=== PATIENT | female | born 1945 | race Caucasian/White ===

== ENCOUNTER 2019-09-10 12:20 | Inpatient (IN) | payer MEDICARE, OTHER ==
[2019-09-10] VITALS (11 sets, daily range): BP systolic 99–175; BP diastolic 55–85
[~2019-09-10] VITALS: Ht 157.5 cm; Wt 58.7 kg
--- NOTE | 2019-09-10 12:32 | PHYS DOC ---
General Adult HPI: HPI: 74F with unclear PMH (no literature provided from transferring facility) for the evaluation of breakthrough seizure this morning, found to have left parietal vertex parenchymal hemorrhage with mild surrounding edema on CT head. Unclear duration of seizure activity. Patient has tracheostomy, bagged en route and plac ed on vent upon arrival. Hx otherwise limited at this time given patient condition. Patient's baseline mentation is unclear. Received fosphenytoin load prior to transfer. PMH, PSH, SHx unable to be obtained. Additional ancillary Hx obtained from outside facility: Reportedly been at [facility] since September 04 following admission to [facility] for respiratory failure, PNA. Developed increasing agitation over last 1-2 days requiring precedex/fentanyl. Review of Systems: Review of Systems: Unable to be obtained 2/2 patient condition. Heart Score: Risk Factors: Risk Factors: DM, Current or recent (<one month) smoker, HTN, HLP, family history of CAD, obesity. Risk Scores: Score 0 - 3: 2.5% MACE over next 6 weeks - Discharge Home Score 4 - 6: 20.3% MACE over next 6 weeks - Admit for Clinical Observation Score 7 - 10: 72.7% MACE over next 6 weeks - Early Invasive Strategies Physical Exam: PE: Gen: NAD. Head: NC/AT. Eyes: No scleral icterus. No conjunctival injection. PERRL, oval shaped right pupil. ENT: MMM. Neck: Trach in place. CV: RRR. Peripheral pulses intact. Resp: Diffusely rhonchorous BL. Abd: Soft. NT. ND. MSK: No peripheral cyanosis. No edema. Neuro: GCS 6T. Skin. Warm. Dry. Psych: Obtunded. EKG: EKG: [] Radiology/Procedures: Radiology/Procedures: [] Course & Med Decision Making: Course & Med Decision Making Pertinent Labs and Imaging studies reviewed. (See chart for details) In summary, 74F presenting as transfer from [facility] following first time seizure, found to have left parietal IPH. Received fospheny [employer]. Has MY triple lumen PI CC. SBP 140, hold cardene for now. Spoke with Dinora BALL of [facility] re: ICH and breakthrough seizure. Will attempt to upload images to PACS for review. Will admit. Reji Disclaimer: Reji Disclaimer: This electronic medical record was generated, in whole or in part, using a voice recognition dictation system. Departure Departure Impression: Primary Impression: Intraparenchymal hemorrhage of brain Additional Impression: Seizure Disposition: ADMITTED INPATIENT Admitting Physician: Madi. Radha Lazcanoicifation of Admission Dx: Justifications for Admission: Justification of Admission Dx: Yes Respiratory Failure: Mechanical Ventilation Comments: Intraparenchymal hemorrhage, seizure Critical Care Time Critical care time was [30] minutes exclusive of procedures. ALBERTO TAVAREZ DO Sep 10, 2019 12:32
[2019-09-10] MEDS ORDERED: levETIRAcetam 1,000 MG in IV DEXTROSE 5% 100ML 100 ML IV ONE (12:45)
[2019-09-10] MEDS ORDERED: ONDANSETRON PF 4 MG/2 ML VIAL. IV PRN (13:00)
[2019-09-10 13:04] LABS: BASE EXCESS ABG 1 mmol/L (-3-3); HCO3 ABG 25 mmol/L (21-28); PCO2 ABG 38 mmHg (35-46); PO2 ABG 108 mmHg (65-108); SAT O2 ABG 97 % (92-99)
[2019-09-10 13:05] LABS: BASO # 0.1 x10^3/uL (0.0-0.2); BASO % 0 % (0-3); EOS # 0.2 x10^3/uL (0.0-0.7); EOS % 1 % (0-3); HEMATOCRIT 23.2 % (36.0-47.0); HEMOGLOBIN 7.8 g/dL (12.0-15.5); LYMPH # 0.7 x10^3/uL (1.0-4.8); LYMPH % 3 % (24-48); MEAN CORPUSCULAR HEMOGLOBIN 29 pg (25-35); MEAN CORPUSCULAR HGB CONC 33 g/dL (31-37); MEAN CORPUSCULAR VOLUME 86 fL (79-100); MONO # 2.2 x10^3/uL (0.0-1.1); MONO % 11 % (0-9); NEUT # 16.9 x10^3/uL (1.8-7.7); NEUT % 84 % (31-73); PLATELET COUNT 478 x10^3/uL (140-400); RED BLOOD COUNT 2.72 x10^6/uL (3.50-5.40); RED CELL DISTRIBUTION WIDTH 17.6 % (11.5-14.5)
[2019-09-10 13:09] LABS: FIO2 ABG 35% VENT
[2019-09-10 13:15] LABS: PROTHROMBIN TIME PATIENT 13.9 SEC (11.7-14.0)
[2019-09-10 13:17] LABS: ALBUMIN 2.7 g/dL (3.4-5.0); ALBUMIN/GLOBULIN RATIO 0.7 (1.0-1.7); CALCIUM 9.7 mg/dL (8.5-10.1); CREATININE 1.9 mg/dL (0.6-1.0); GFR 25.9; MAGNESIUM 1.6 mg/dL (1.8-2.4); TOTAL BILIRUBIN 0.3 mg/dL (0.2-1.0); TOTAL PROTEIN 6.7 g/dL (6.4-8.2)
[2019-09-10 13:21] LABS: POTASSIUM 2.7 mmol/L (3.5-5.1)
[2019-09-10 13:47] LABS: % BANDS 6 % (0-9); % EOS 1 % (0-5); % LYMPHS 1 % (24-48); % MONOS 7 % (0-10); % SEGS 85 % (35-66)
[2019-09-10 13:48] LABS: ANISOCYTOSIS SLIGHT; HYPERSEGS PRESENT; PLT ESTIMATE INCREASED (ADEQUATE)
--- NOTE | 2019-09-10 14:00 | NUR ---
Patient of Dr Peña admitted at 1330 from [facility] with intracranial hemorrhage. Patient with trach on vent unresponsive, with cough and a gag, pupils equal and reactive.Consults called. Dr Keita ordered PRN Cardene to keep BP < 150. Dr Rodriguez ordered repeat head CT for am, and bid keppra. Wound care consulted. Potassium and mag replaced. Patients vs wnl. will monitor.
[2019-09-10] MEDS ORDERED: CALC500T54 PO (14:03)
[2019-09-10] MEDS ORDERED: ALBU2.5V14 NEB (14:03)
[2019-09-10] MEDS ORDERED: FLUT9.9S NS (14:03)
[2019-09-10] MEDS ORDERED: IPRA3AMP29 NEB (14:03)
[2019-09-10] MEDS ORDERED: METO50TA6 PO (14:10)
[2019-09-10] MEDS ORDERED: SIME80TA14 PO (14:10)
[2019-09-10] MEDS ORDERED: CYAN-25 PO (14:10)
[2019-09-10] MEDS ORDERED: VENL37.510 PO (14:10)
[2019-09-10] MEDS ORDERED: PRED20TA PO (14:10)
[2019-09-10] MEDS ORDERED: SUCR1TAB PO (14:10)
[2019-09-10] MEDS ORDERED: MAGNESIUM SULFATE 2GM 50 ML IV ONE (15:00)
[2019-09-10] MEDS: POTASSIUM CHLORIDE 20MEQ 100 ML IV SCH ×4 (15:35→18:33)
[2019-09-10] MEDS ORDERED: NON FORMULARY ITEM (Albuterol Sulfate (Albuterol Sulfate Conc Neb Soln) 1 VIAL) NEB PRN (17:00)
[2019-09-10] MEDS ORDERED: IPRATRPIUM/ALBUTEROL 0.5/2.5MG 3 ML NEBU. NEB SCH (17:00)
[2019-09-10] MEDS: SUCRALFATE 1 GM TABLET. PO SCH ×2 (17:09→20:41)
[2019-09-10] MEDS ORDERED: ALBUTEROL SULFATE 2.5 MG/3 ML NEBU. NEB PRN (17:15)
[2019-09-10] MEDS: IV NORMAL SALINE 1000ML BAG 1,000 ML IV SCH (17:15)
[2019-09-10] MEDS ORDERED: C.DIFF MED SCREEN BY RX. MC ONE (18:00)
--- NOTE | 2019-09-10 18:00 | CONS ---
DATE OF CONSULTATION: PULMONARY CONSULTATION ATTENDING PHYSICIAN: Radha Peña MD. REASON FOR CONSULTATION: Respiratory failure, seizure, encephalopathy. HISTORY OF PRESENT ILLNESS: The patient is a 74-year-old female who was admitted to [facility] on 08/10 with shortness of breath and left-sided chest pain. She was found to have left-sided pneumonia. There was no evidence of pulmonary embolism. The patient's respiratory status deteriorated and subsequently required mechanical ventilation. She failed to wean; as a result, she underwent tracheostomy. Her hospital course was complicated by development of methicillin-sensitive Staphylococcus aureus pneumonia and loculated left pleural effusion, likely parapneumonic and early empyema that was bloody and responded to TPA. She had ALEX and also metabolic acidosis and encephalopathy. The patient has history of chronic bronchiectasis. She has secondhand tobacco exposure and likely COPD, but no significant personal tobacco history. She also was treated for rhabdomyolysis and UTI. She was at [facility] where she was transferred; however, today she developed a seizure. She was brought in to Emergency Room where a CT of the head was performed and was consistent with left parietal acute parenchymal hemorrhage with surrounding edema. She is currently on a ventilator. She is not responding, however, she does trigger the ventilator. Her chest x-ray has not been done yet. The who was at the bedside, gave much of the history as well as review of the chart. Her ABGs showed a pH of 7.43, pCO2 of 30 and a pO2 of 108 on 35% FiO2. I have been asked to see her for further evaluation. Neurosurgery has been consulted. PAST MEDICAL HISTORY: Significant for bronchiectasis with recurrent pulmonary infections in the past. History of COPD from secondhand tobacco exposure, history of Graves' disease with hyperthyroidism, history of diverticulitis without perforation, history of gastroesophageal reflux disease, history of methicillin-sensitive Staphylococcus aureus pneumonia and parapneumonic effusion/early empyema, status post TPA done recently. History of uncomplicated bronchial asthma. PAST SURGICAL HISTORY: Achilles tendon repair, bronchoscopy, , tracheostomy, PEG tube, cataract extractions, total knee arthroplasty on the right side. ALLERGIES: None. CURRENT MEDICATIONS: All reviewed as listed in the MRAD. REVIEW OF SYSTEMS: Unable to obtain from the patient as she is on the ventilator. SOCIAL HISTORY: Nonsmoker. FAMILY HISTORY: Not able to obtain. PHYSICAL EXAMINATION: GENERAL: She is intubated. She is not sedated. VITAL SIGNS: Blood pressure 140/81, afebrile, pulse ox 100%. HEENT: Pupils do react symmetrically. NECK: Supple. Trach in place. LUNGS: With diminished breath sounds. CARDIOVASCULAR: With a regular rate. ABDOMEN: Soft. EXTREMITIES: With ecchymosis and trace pitting edema. LABORATORY DATA: Reviewed. ABGs as discussed in my history of present illness. BUN is 115, creatinine 1.9, potassium 2.7, albumin 2.7. INR 1.1. White cell count 20.0, hemoglobin 7.8, and platelets are 478. IMPRESSION: 1. The patient with acute hypoxic respiratory failure secondary to pneumonia and parapneumonic effusion/early empyema, requiring mechanical ventilation and subsequent failure to wean and eventually requiring tracheostomy. Currently, her oxygenation is stable on 35% FiO2. 2. New onset seizure related to acute parenchymal hemorrhage within the left parietal vertex with surrounding edema. 3. Encephalopathy secondary to parenchymal hemorrhage. 4. History of bronchiectasis. 5. Chronic obstructive pulmonary disease from secondhand tobacco exposure. 6. Recent methicillin-sensitive Staphylococcus aureus pneumonia. 7. Prior history of rib fracture from coughing. 8. Moderate protein-calorie malnutrition. 9. Leukocytosis. 10. Anemia. 11. Hypokalemia. 12. Marked azotemia. RECOMMENDATIONS: 1. The patient's pulmonary status is stable and I will continue with present assist control mode and 35% FiO2. 2. Await Neurosurgery recommendations. It does not seem like that she is a surgical candidate. 3. We will consider IV hydration and follow BUN and creatinine. 4. Consider Renal consult. 5. We will obtain chest x-ray. 6. Withhold any anticoagulation for DVT prophylaxis due to intraparenchymal bleed in the head. 7. Anti-seizure medication per Neurology and follow their recommendation. 8. Stress ulcer prophylaxis. 9. Discussed at length with the patient's and RN and RT. The chart reviewed, labs reviewed. Critical care time 40 minutes. LEO WILLIAM MD DR: MATTI/south JOB#: [id number] / [id number]
[2019-09-10] MEDS ORDERED: IV NORMAL SALINE 500ML BAG 500 ML IV PRN (18:45)
[2019-09-10] MEDS ORDERED: ATROPINE 0.5 MG/5 ML DISP.SYRINGE. IV PRN (18:45)
[2019-09-10] MEDS: METOPROLOL TART IMMED RELEASE 50 MG TABLET. PO SCH (20:41)
[2019-09-10] MEDS: SIMETHICONE 80 MG TAB.CHEW PO SCH (20:41)
[2019-09-10] MEDS: CALCIUM CARBONATE 500 MG TAB.CHEW PO SCH (20:41)
[2019-09-10] MEDS: IPRATRPIUM/ALBUTEROL 0.5/2.5MG 3 ML NEBU. NEB SCH (20:56)
[2019-09-10] MEDS: FAMOTIDINE 20 MG/2 ML VIAL IVP SCH (21:12)
[2019-09-11] VITALS (25 sets, daily range): BP systolic 113–177; BP diastolic 59–103
[2019-09-11] MEDS: IV NORMAL SALINE 1000ML BAG 1,000 ML IV SCH ×2 (02:42→13:33)
[2019-09-11] MEDS: DEXMEDETOMIDINE 400 MCG in IV NORMAL SALINE 100ML 96 ML IV PRN ×3 (05:32→20:45)
[2019-09-11 05:53] LABS: HEMATOCRIT 23.7 % (36.0-47.0); HEMOGLOBIN 7.8 g/dL (12.0-15.5); RED BLOOD COUNT 2.75 x10^6/uL (3.50-5.40); RED CELL DISTRIBUTION WIDTH 17.3 % (11.5-14.5); WHITE BLOOD COUNT 21.1 x10^3/uL (4.0-11.0)
--- NOTE | 2019-09-11 05:58 | NUR ---
At 0445 patient began coughing up large amounts of clear sputum. Patient was suctioned a couple times, but patient continued to cough, putting her HR in the 130s. This RN waited to see if patient would begin to relax on own as this is what she had done previously when having coughing episodes. Patient however is now more alert than has been during shift and could not stop coughing and spitting up sputum. Patient still does not follow commands,cannot move extremities, but eyes now open spontaneously. HR stayed steady at 130, and BP went up to [id number]. Patient started low dose precedex drip at 0545
[2019-09-11 06:11] LABS: CALCIUM 10.3 mg/dL (8.5-10.1); CREATININE 1.6 mg/dL (0.6-1.0); GFR 31.6; MAGNESIUM 2.2 mg/dL (1.8-2.4); PHOSPHORUS 6.5 mg/dL (2.6-4.7); POTASSIUM 3.6 mmol/L (3.5-5.1)
--- NOTE | 2019-09-11 08:10 | RAD ---
PORTABLE CHEST 1V History: Pneumonia Comparison: None. Findings: Single view of the chest is submitted. There is tracheostomy. There is right upper extremity PICC with the tip near the caval atrial junction. There is no dependent pleural fluid or pneumothorax. There is some scattered interstitial opacity bilaterally greater on the right, also more confluent linear opacity at the left lung base and right upper lobe. Heart size is within normal limits. There is atherosclerotic calcification near aortic arch. Impression: 1. There is some interstitial opacity greater on the right of uncertain chronicity, could be due to interstitial infiltrate and/or edema, also some linear opacity bilaterally more likely atelectasis. Electronically signed by: Clint Joseph MD (09/11/2019 8:08 AM) [id number]
[2019-09-11] MEDS: SUCRALFATE 1 GM TABLET. PO SCH ×4 (08:19→20:52)
[2019-09-11] MEDS: levETIRAcetam 500 MG in IV DEXTROSE 5% 100ML 100 ML IV SCH ×2 (08:34→20:54)
[2019-09-11 08:51] LABS: BASE EXCESS ABG 1 mmol/L (-3-3); HCO3 ABG 26 mmol/L (21-28); PCO2 ABG 38 mmHg (35-46); PO2 ABG 114 mmHg (65-108); SAT O2 ABG 98 % (92-99)
[2019-09-11] MEDS: IPRATRPIUM/ALBUTEROL 0.5/2.5MG 3 ML NEBU. NEB SCH ×4 (08:54→20:00)
[2019-09-11 08:59] LABS: FIO2 ABG 35
[2019-09-11] MEDS: FLUTICASONE 50MCG/NASAL SPRAY 16GM BOTTLE. NS SCH (09:00)
--- NOTE | 2019-09-11 09:56 | PDOC ---
PULMONARY PROGRESS NOTES Subjective responds to painful stimula off vent , on TS Vitals Vital Signs Date Time Temp Pulse Resp B/P (MAP) Pulse Ox O2 Delivery O2 Flow Rate FiO2 09/11/19 09:10 100 Tracheal Collar 8.0 09/11/19 09:00 104 12 141/79 (99) 09/11/19 08:00 97.6 97.6 General: Lethargic Lungs: Other (decrease bs) Cardiovascular: S1 Abdomen: Soft Extremities: Other (1+edema) Skin: Warm Labs Laboratory Tests Test 09/10/19 12:35 09/10/19 13:00 09/10/19 23:43 09/11/19 05:45 White Blood Count 20.0 x10^3/uL (4.0-11.0) 21.1 x10^3/uL (4.0-11.0) Red Blood Count 2.72 x10^6/uL (3.50-5.40) 2.75 x10^6/uL (3.50-5.40) Hemoglobin 7.8 g/dL (12.0-15.5) 7.8 g/dL (12.0-15.5) Hematocrit 23.2 % (36.0-47.0) 23.7 % (36.0-47.0) Mean Corpuscular Volume 86 fL (79-100) 86 fL (79-100) Mean Corpuscular Hemoglobin 29 pg (25-35) 28 pg (25-35) Mean Corpuscular Hemoglobin Concent 33 g/dL (31-37) 33 g/dL (31-37) Red Cell Distribution Width 17.6 % (11.5-14.5) 17.3 % (11.5-14.5) Platelet Count 478 x10^3/uL (140-400) 434 x10^3/uL (140-400) Neutrophils (%) (Auto) 84 % (31-73) Lymphocytes (%) (Auto) 3 % (24-48) Monocytes (%) (Auto) 11 % (0-9) Eosinophils (%) (Auto) 1 % (0-3) Basophils (%) (Auto) 0 % (0-3) Neutrophils # (Auto) 16.9 x10^3/uL (1.8-7.7) Lymphocytes # (Auto) 0.7 x10^3/uL (1.0-4.8) Monocytes # (Auto) 2.2 x10^3/uL (0.0-1.1) Eosinophils # (Auto) 0.2 x10^3/uL (0.0-0.7) Basophils # (Auto) 0.1 x10^3/uL (0.0-0.2) Segmented Neutrophils % 85 % (35-66) Band Neutrophils % 6 % (0-9) Lymphocytes % 1 % (24-48) Monocytes % 7 % (0-10) Eosinophils % 1 % (0-5) Hypersegmented Neutrophils Present Platelet Estimate Increased (ADEQUATE) Anisocytosis Slight Prothrombin Time 13.9 SEC (11.7-14.0) Prothromb Time International Ratio 1.1 (0.8-1.1) Activated Partial Thromboplast Time 28 SEC (24-38) Sodium Level 141 mmol/L (136-145) 144 mmol/L (136-145) Potassium Level 2.7 mmol/L (3.5-5.1) 3.6 mmol/L (3.5-5.1) Chloride Level 97 mmol/L (98-107) 101 mmol/L (98-107) Carbon Dioxide Level 28 mmol/L (21-32) 26 mmol/L (21-32) Anion Gap 16 (6-14) 17 (6-14) Blood Urea Nitrogen 115 mg/dL (7-20) 98 mg/dL (7-20) Creatinine 1.9 mg/dL (0.6-1.0) 1.6 mg/dL (0.6-1.0) Estimated GFR (Cockcroft-Gault) 25.9 31.6 BUN/Creatinine Ratio 61 (6-20) Glucose Level 167 mg/dL (70-99) 125 mg/dL (70-99) Calcium Level 9.7 mg/dL (8.5-10.1) 10.3 mg/dL (8.5-10.1) Magnesium Level 1.6 mg/dL (1.8-2.4) 2.2 mg/dL (1.8-2.4) Total Bilirubin 0.3 mg/dL (0.2-1.0) Aspartate Amino Transf (AST/SGOT) 27 U/L (15-37) Alanine Aminotransferase (ALT/SGPT) 37 U/L (14-59) Alkaline Phosphatase 94 U/L (46-116) Troponin I Quantitative < 0.017 ng/mL (0.000-0.055) Total Protein 6.7 g/dL (6.4-8.2) Albumin 2.7 g/dL (3.4-5.0) Albumin/Globulin Ratio 0.7 (1.0-1.7) O2 Saturation 97 % (92-99) Arterial Blood pH 7.43 (7.35-7.45) Arterial Blood pCO2 at Patient Temp 38 mmHg (35-46) Arterial Blood pO2 at Patient Temp 108 mmHg (65-108) Arterial Blood HCO3 25 mmol/L (21-28) Arterial Blood Base Excess 1 mmol/L (-3-3) FiO2 35% vent Glucose (Fingerstick) 111 mg/dL (70-99) Phosphorus Level 6.5 mg/dL (2.6-4.7) Test 09/11/19 08:40 O2 Saturation 98 % (92-99) Arterial Blood pH 7.45 (7.35-7.45) Arterial Blood pCO2 at Patient Temp 38 mmHg (35-46) Arterial Blood pO2 at Patient Temp 114 mmHg (65-108) Arterial Blood HCO3 26 mmol/L (21-28) Arterial Blood Base Excess 1 mmol/L (-3-3) FiO2 35 Laboratory Tests Test 09/10/19 12:35 09/10/19 13:00 09/10/19 23:43 09/11/19 05:45 White Blood Count 20.0 x10^3/uL (4.0-11.0) 21.1 x10^3/uL (4.0-11.0) Red Blood Count 2.72 x10^6/uL (3.50-5.40) 2.75 x10^6/uL (3.50-5.40) Hemoglobin 7.8 g/dL (12.0-15.5) 7.8 g/dL (12.0-15.5) Hematocrit 23.2 % (36.0-47.0) 23.7 % (36.0-47.0) Mean Corpuscular Volume 86 fL (79-100) 86 fL (79-100) Mean Corpuscular Hemoglobin 29 pg (25-35) 28 pg (25-35) Mean Corpuscular Hemoglobin Concent 33 g/dL (31-37) 33 g/dL (31-37) Red Cell Distribution Width 17.6 % (11.5-14.5) 17.3 % (11.5-14.5) Platelet Count 478 x10^3/uL (140-400) 434 x10^3/uL (140-400) Neutrophils (%) (Auto) 84 % (31-73) Lymphocytes (%) (Auto) 3 % (24-48) Monocytes (%) (Auto) 11 % (0-9) Eosinophils (%) (Auto) 1 % (0-3) Basophils (%) (Auto) 0 % (0-3) Neutrophils # (Auto) 16.9 x10^3/uL (1.8-7.7) Lymphocytes # (Auto) 0.7 x10^3/uL (1.0-4.8) Monocytes # (Auto) 2.2 x10^3/uL (0.0-1.1) Eosinophils # (Auto) 0.2 x10^3/uL (0.0-0.7) Basophils # (Auto) 0.1 x10^3/uL (0.0-0.2) Segmented Neutrophils % 85 % (35-66) Band Neutrophils % 6 % (0-9) Lymphocytes % 1 % (24-48) Monocytes % 7 % (0-10) Eosinophils % 1 % (0-5) Hypersegmented Neutrophils Present Platelet Estimate Increased (ADEQUATE) Anisocytosis Slight Prothrombin Time 13.9 SEC (11.7-14.0) Prothromb Time International Ratio 1.1 (0.8-1.1) Activated Partial Thromboplast Time 28 SEC (24-38) Sodium Level 141 mmol/L (136-145) 144 mmol/L (136-145) Potassium Level 2.7 mmol/L (3.5-5.1) 3.6 mmol/L (3.5-5.1) Chloride Level 97 mmol/L (98-107) 101 mmol/L (98-107) Carbon Dioxide Level 28 mmol/L (21-32) 26 mmol/L (21-32) Anion Gap 16 (6-14) 17 (6-14) Blood Urea Nitrogen 115 mg/dL (7-20) 98 mg/dL (7-20) Creatinine 1.9 mg/dL (0.6-1.0) 1.6 mg/dL (0.6-1.0) Estimated GFR (Cockcroft-Gault) 25.9 31.6 BUN/Creatinine Ratio 61 (6-20) Glucose Level 167 mg/dL (70-99) 125 mg/dL (70-99) Calcium Level 9.7 mg/dL (8.5-10.1) 10.3 mg/dL (8.5-10.1) Magnesium Level 1.6 mg/dL (1.8-2.4) 2.2 mg/dL (1.8-2.4) Total Bilirubin 0.3 mg/dL (0.2-1.0) Aspartate Amino Transf (AST/SGOT) 27 U/L (15-37) Alanine Aminotransferase (ALT/SGPT) 37 U/L (14-59) Alkaline Phosphatase 94 U/L (46-116) Troponin I Quantitative < 0.017 ng/mL (0.000-0.055) Total Protein 6.7 g/dL (6.4-8.2) Albumin 2.7 g/dL (3.4-5.0) Albumin/Globulin Ratio 0.7 (1.0-1.7) O2 Saturation 97 % (92-99) Arterial Blood pH 7.43 (7.35-7.45) Arterial Blood pCO2 at Patient Temp 38 mmHg (35-46) Arterial Blood pO2 at Patient Temp 108 mmHg (65-108) Arterial Blood HCO3 25 mmol/L (21-28) Arterial Blood Base Excess 1 mmol/L (-3-3) FiO2 35% vent Glucose (Fingerstick) 111 mg/dL (70-99) Phosphorus Level 6.5 mg/dL (2.6-4.7) Test 09/11/19 08:40 O2 Saturation 98 % (92-99) Arterial Blood pH 7.45 (7.35-7.45) Arterial Blood pCO2 at Patient Temp 38 mmHg (35-46) Arterial Blood pO2 at Patient Temp 114 mmHg (65-108) Arterial Blood HCO3 26 mmol/L (21-28) Arterial Blood Base Excess 1 mmol/L (-3-3) FiO2 35 Medications Active Scripts Medications Dose Route/Sig Max Daily Dose Days Date Category Vitamin B-12 (Cyanocobalamin (Vitamin B-12)) 1,000 Mcg Tablet 1 Tab PO DAILY 30 09/10/19 Reported Venlafaxine Hcl Er (Venlafaxine Hcl) 37.5 Mg Tab.er.24 1 Tab PO DAILY 30 09/10/19 Reported Sucralfate 1 Gm Tablet 1 Tab PO QID 09/10/19 Reported Simethicone 80 Mg Tab.chew 1 Tab PO TID 6 09/10/19 Reported Prednisone 20 Mg Tablet 12.5 Mg PO DAILY 09/10/19 Reported Metoprolol Tartrate 50 Mg Tablet 1 Tab PO BID 09/10/19 Reported Albuterol Sulfate Conc Neb Soln (Albuterol Sulfate) 2.5 Mg/0.5 Ml Vial.neb 1 Vial NEB PRN Q4HRS PRN 09/10/19 Reported Duoneb 0.5-3(2.5) Mg/3 Ml (Albuterol/Ipratropium) 3 Ml Ampul.neb 3 Ml NEB QID 09/10/19 Reported Flonase Allergy Relief (Fluticasone Propionate) 9.9 Ml [place].susp 2 Sprays NS DAILY 09/10/19 Reported Calcium (Calcium Carbonate) 500 Mg Tab.chew 1 Tab PO BID 30 09/10/19 Reported Comments cxr 09/09 reviewed Impression . 1. The patient with acute hypoxic respiratory failure secondary to pneumonia and parapneumonic effusion/early empyema, requiring mechanical ventilation and subsequent failure to wean and eventually requiring tracheostomy. Currently, her oxygenation is stable on 35% FiO2. 2. New onset seizure related to acute parenchymal hemorrhage within the left parietal vertex with surrounding edema. 3. Encephalopathy secondary to parenchymal hemorrhage. 4. History of bronchiectasis. 5. Chronic obstructive pulmonary disease from secondhand tobacco exposure. 6. Recent methicillin-sensitive Staphylococcus aureus pneumonia. 7. Prior history of rib fracture from coughing. 8. Moderate protein-calorie malnutrition. 9. Leukocytosis. 10. Anemia. 11. Hypokalemia. 12. Marked azotemia. Plan . RECOMMENDATIONS: 1. The patient's pulmonary status is stable and I will continue with present TS 2. Neurosurgery recommendations. It does not seem like that she is a surgical candidate. 3. We will consider IV hydration and follow BUN and creatinine. 4. ? Renal consult. 5. chest x-ray.reviewed 6. Withhold any anticoagulation for DVT prophylaxis due to intraparenchymal bleed in the head. 7. Anti-seizure medication per Neurology and follow their recommendation. 8. Stress ulcer prophylaxis. 9. Discussed at length with the patient's and RN and RT. LEO WILLIAM MD Sep 11, 2019 09:56
[2019-09-11] MEDS: CALCIUM CARBONATE 500 MG TAB.CHEW PO SCH ×2 (11:09→20:53)
[2019-09-11] MEDS: predniSONE 5 MG TABLET PO SCH (11:09)
[2019-09-11] MEDS: SIMETHICONE 80 MG TAB.CHEW PO SCH ×3 (11:10→20:52)
[2019-09-11] MEDS: CYANOCOBALAMIN (VITAMIN B-12) 1,000 MCG TABLET. PO SCH (11:10)
[2019-09-11] MEDS: VENLAFAXINE XR 37.5 MG CAP.ER.24H. PO SCH (11:10)
[2019-09-11] MEDS: METOPROLOL TART IMMED RELEASE 50 MG TABLET. PO SCH ×2 (11:12→20:53)
--- NOTE | 2019-09-11 11:43 | RAD ---
EXAM: CT Head without IV contrast INDICATION: Reason: f/u ICH, compare to [facility] CD / Spl. Instructions: / History: TECHNIQUE: Multi-detector row CT images were obtained of the head without the use of IV contrast. All CT scans performed at this facility utilize dose optimization techniques as appropriate to the exam, including the following: Automated exposure control and adjustment of the mA and/or KV according to patient size (this includes techniques or standardized protocols for targeted exams where dose is indication/reason for exam). COMPARISON: [facility] noncontrast head CT of 09/10/2027 times stamped at approximately 2240 hours FINDINGS: There is some motion artifact that degrades detail. BRAIN PARENCHYMA: The asymmetric hyperdensity in the posterior left frontal lobe is obscured by motion artifact but best appreciated on axial image 27 of 68 on series 2 and measures approximately 1.2 cm in maximum diameter. This is essentially unchanged from the previous CT of slightly under 12 hours ago. There is mild generalized frontal predominant volume loss. There is also suggestion of subcortical white matter edema in the bilateral occipital lobes. VENTRICLES & EXTRA-AXIAL SPACES: Ventricles are prominent in proportion to the degree of parenchymal volume loss present. Basilar cisterns are patent. No pathologic extra-axial fluid collection or mass. ORBITS: Orbital contents are unremarkable. SINUSES: Visualized paranasal sinuses and mastoid air cells are clear. OSSEOUS & SOFT TISSUES: Calvarium and skull base are intact. IMPRESSION: Motion degraded examination showing subtle hyperdensity in the posterior left frontal lobe near the vertex. This is suspicious for acute intraparenchymal hemorrhage, not significantly changed from the prior examination. Consider an MRI of the brain when clinically feasible in further characterization. Subtle subcortical white matter edema in the occipital lobes is also suspected, potentially reflection of reversible encephalopathy. MRI could also help confirm and further characterize if indicated. Discussed with patient's consulting neurologist in person at 11:37 AM on 09/11/2019. Electronically signed by: Michelle Alex MD (09/11/2019 11:41 AM) [id number]
--- NOTE | 2019-09-11 11:54 | HP ---
ADMIT DATE: HISTORY OF PRESENT ILLNESS: The patient is a 74-year-old female patient who was transferred from [facility] as she developed prolonged episode of partial seizures involving her left upper extremity for which she was seen by the ER physician at that time and was given loading dose of phenytoin and a total of about 7 mg of Ativan. She apparently had had a CT scan of the head, which found intraparenchymal hemorrhage of the brain and therefore, the patient was transferred to [facility] to consult a neurologist and the neurosurgeon. The patient was sedated as she has received about 7 mg of Ativan and a loading dose of phenytoin and we did switch her to Keppra 500 mg IV twice a day. The patient was originally transferred from another facility and developed acute hypoxic respiratory failure secondary to community-acquired pneumonia. She did have also pleuritic pain in the left side on admission and apparently for about 2-3 days prior to admission, was coughing really hard. She was treated with Precedex drip for sedation and she arrived to [facility] and at 1 mcg per kilogram per minute Precedex drip running. At one point in time, she did require also a chest tube for pleural effusion, given tPA and dornase with the physician notes stating that there was significant response. She was also treated for acute kidney injury and Roselia urinary tract infection. Her liver enzymes were elevated to be secondary to medication and sepsis. She was also treated with steroids and required tracheostomy and PEG tube placement. PAST MEDICAL HISTORY: Significant for: 1. Chronic obstructive pulmonary disease with bronchiectasis. 2. Methicillin-resistant Staphylococcus aureus localization. 3. Chronic sinusitis. 4. Acquired hypothyroidism. 5. Osteoporosis and osteoarthritis. 6. Degenerative disk disease. 7. Gastroesophageal reflux disease. 8. Hypercholesterolemia. 9. Diverticulitis of the large intestine. 10. Previous left Achilles rupture. 11. Although she is hypothyroid, at one point in time, she did have Graves' disease with diffuse goiter and thyrotoxicosis. PAST SURGICAL HISTORY: Significant for previous bronchoscopies, , eye surgery, right knee replacement, hysterectomy, right lumbar radiofrequency ablation and 3 previous sinus surgeries. She has also a gastrostomy tube placement as well as tracheostomy tube placement. SOCIAL HISTORY: She is and lives with . She does not smoke, drink alcohol or use any recreational drugs. FAMILY HISTORY: Her father had esophageal cancer. Brother had lung cancer and heart attack. Sister had asthma, kidney cancer and diabetes as well as hypothyroidism and migraine. Mother has Parkinson's disease. ALLERGIES: She has no known drug allergies. MEDICATIONS: She was transferred from [facility] to continue on following medications: Ipratropium bromide, albuterol inhaler by nebulizer 4 times a day, albuterol sulfate 2.5 mg in 0.5 mL by nebulizer every 4 hours, metoprolol tartrate 50 mg per feeding tube twice a day, venlafaxine 37.5 mg daily, calcium carbonate 500 mg twice a day, Flonase 2 sprays to each nostril once a day, simethicone 80 mg 3 times a day, sucralfate 1 gram 4 times a day, prednisone 20 mg once a day, cyanocobalamin or vitamin B12 1000 mcg once a day. She should also be on Keppra 500 mg IV every 12 hours as well as Precedex for sedation. PHYSICAL EXAMINATION: GENERAL: On arrival, she looked well and was clearly in no apparent respiratory distress, pale, but no jaundice, cyanosis or thyromegaly. No jugular venous distention. No lower limb edema. VITAL SIGNS: Her heart rate was 107, blood pressure was 175/85. Her temperature was 97.9, respiratory rate was 12 and oxygen saturation was 100% on FiO2 of 40%. HEAD, EYES, EARS, NOSE AND THROAT: Showed normocephalic, atraumatic. NECK: Supple. HEART: Showed normal first and second heart sounds. No gallop, rub or murmur. CHEST: Showed central trachea, equal bilateral expansion, air entry, vesicular sounds with crepitation or rhonchi. ABDOMEN: Distended, soft with gastrostomy tube in place. There is no guarding or rigidity. No organomegaly. All hernial orifices intact. Bowel sounds normal. NEUROLOGIC: She was sedated that she received about 7 mg of Ativan. LABORATORY DATA: On admission showed a white cell count of 20,000; hemoglobin 7.8; hematocrit 23; MCV 86 and platelet count 476,000 with normal manual differential. Serum sodium was 141, potassium 2.7, chloride 97, bicarbonate 28, anion gap of 16, BUN 115. Her creatinine is 1.9, estimated GFR was 26 mL per minute. Her glucose 167, calcium was 9.7, magnesium was 1.6. Total bilirubin, AST, ALT, alkaline phosphatase were normal. Total protein 6.7, albumin 2.7. Her blood gases showed a pH of 7.43, pCO2 of 38, pO2 of 108, bicarbonate 25 and oxygen saturation was 97% on FiO2 of 35%. Her prothrombin time, INR and aPTT were normal. ASSESSMENT AND PLAN: In summary, this is a 74-year-old female patient who was basically transferred from [facility] with new onset of seizure. CT scan showed that she has intraparenchymal hemorrhage. The hemorrhage was in the left parietal area with surrounding edema. She was transferred to consult the neurologist and neurosurgeon as well as the industrial designer. We will continue obviously with her tube feeding. She has also hypokalemia and hypomagnesemia, will be replenished. We will continue with all her medications including Keppra 500 mg twice a day. We did consult Dr. Keita as well as Dr. Rodriguez. MANUELITO CEDILLO MD DR: DARRICK/south JOB#: [id number] / [id number]
--- NOTE | 2019-09-11 13:24 | PN ---
DATE: 09/11/2019 SUBJECTIVE: The patient is resting slightly propped up in bed, in no apparent distress. She is awake, alert, opens eyes, tracks and her stated that she is responding a lot more today than yesterday. No further seizures documented overnight. She is now off the ventilator and tracheal shield maintaining her oxygen saturation at 100% on FiO2 of 35%. PHYSICAL EXAMINATION: GENERAL: When I examined her, she was pale, but no jaundice, cyanosis, lymphadenopathy or thyromegaly. No jugular venous distention. No lower limb edema. VITAL SIGNS: Her heart rate was 93, blood pressure was 163/81, temperature was 97.7, respiratory rate was 12, and oxygen saturation 100%. HEAD, EYES, EARS, NOSE AND THROAT: Normocephalic, atraumatic. NECK: Supple with tracheostomy tube in place. HEART: Showed normal first and second heart sounds with no gallop or murmur. CHEST: Clear to auscultation. No crepitation or rhonchi. ABDOMEN: Distended, soft with gastrostomy tube in place. No guarding or rigidity. No organomegaly. All hernial orifice intact. Bowel sounds normal. NEUROLOGIC: She was sleepy, but arousable. She opens eyes, tracks. She moves all extremities spontaneously. Her intake over the last 24 hours was 1440, output was 2770. LABORATORY DATA: As of this morning showed a white cell count 21,000, hemoglobin 7.8, hematocrit 23.7, MCV 86 and platelet count 434,000. Her chemistry this morning showed a serum sodium 144, potassium 3.6, chloride 101, bicarbonate 26, anion gap of 17, BUN 98, creatinine 1.6, estimated GFR was 31 mL per minute. Her glucose 125, calcium was 10.3, phosphorus 6.5 and magnesium was 2.2. ASSESSMENT: 1. New-onset partial seizure involving her left upper extremity with CT scan showing left parietal intraparenchymal hemorrhage treated with a loading dose of phenytoin and she is now on Keppra 500 mg IV. No further episode of seizures reported. She apparently was seen by Dr. Rodriguez and has had a CT scan of the head that was not read yet. 2. Acute respiratory failure for which she was intubated, mechanically ventilated, and had had a tracheostomy tube in place. She is now off the ventilator, maintaining her oxygen saturation at 100% on tracheal shield. 3. Dysphagia, for which she has a gastrostomy tube in place. 4. Hypokalemia, resolved. Her potassium is 3.6 5. Hypomagnesemia, improved. Her magnesium is 2.2. 6. Acute kidney injury, gradually improving. Her BUN is down to 98 and creatinine is 1.6. PLAN: To continue with Keppra, continue with tube feeding. We will continue the Precedex for agitation or restlessness. I will repeat all her labs tomorrow and await the evaluation by the neurologist and might be able to transfer her back to [facility] tomorrow. MANUELITO CEDILLO MD DR: DARRICK/south JOB#: [id number] / [id number]
--- NOTE | 2019-09-11 13:31 | PDOC2 ---
NEUROLOGY CONSULT Date of Admission Date of Admission DATE: 09/11/19 TIME: 13:19 Reason for Consult Reason for Consult: Seizure, intracranial hemorrhage Referring Physician Referring Physician: Dr. Peña Source Source: Caregiver (), Chart review, Patient History of Present Illness History of Present Illness The patient is a 74-year-old right-handed female originally admitted to [facility] in [place] with pleurisy, she developed respiratory failure requiring intubation and later tracheostomy and PEG placement. She then was transferred to [facility]. Yesterday she developed partial seizures of the left upper extremity. They gave her phenytoin there. A CT of the head showed some petechial hemorrhage in the left frontal lobe. Patient was transferred here. She has now had a repeat head CT today, as reviewed below and no further seizures. We switched her from the phenytoin to levetiracetam. There is no prior history of stroke, seizure, or head injury. Patient has not been complaining of any headaches. There has been no recent head injury, but the patient was recently started on subcutaneous heparin. Past Medical History Cardiovascular: Hyperlipidemia Pulmonary: COPD (With bronchiectasis, non-smoker) GI: Diverticulosis, GERD Musculoskeletal: Osteoarthritis, Other (Degenerative disc disease, left Achilles rupture) ENT: Sincusitis Endocrine: Diabetes (Sugars have been elevated during this hospital stay), Hypothyroidism (Originally Graves' disease), Osteoporosis Past Surgical History Past Surgical History: , Total knee replacement (right), Hysterectomy, Other (eye, right lumbar radiofrequency ablation, 3 sinus surgeries, PEG, trache) Family History Family History: Cancer, Other (Parkinson's) Social History Social History , lives with , no tobacco or alcohol Current Medications Current Medications Current Medications Levetiracetam 1000 mg/Dextrose 110 ml @ 440 mls/hr 1X ONCE IV ; Start 09/10/19 at 12:45; Stop 09/10/19 at 12:59; Status DC Ondansetron HCl (Zofran) 4 mg PRN Q8HRS PRN IV NAUSEA/VOMITING; Start 09/10/19 at 13:00; Stop 09/11/19 at 12:59; Status DC Potassium Chloride/Water 100 ml @ 100 mls/hr Q1H IV Last administered on 09/10/19at 18:33; Start 09/10/19 at 15:00; Stop 09/10/19 at 18:59; Status DC Magnesium Sulfate 50 ml @ 25 mls/hr 1X ONCE IV Last administered on 09/10/19at 14:51; Start 09/10/19 at 15:00; Stop 09/10/19 at 16:59; Status DC Sodium Chloride 1,000 ml @ 100 mls/hr Q10H IV Last administered on 09/11/19at 02:42; Start 09/10/19 at 15:45 Levetiracetam 500 mg/Dextrose 105 ml @ 420 mls/hr Q12HR IV Last administered on 09/11/19at 08:34; Start 09/11/19 at 09:00 Cyanocobalamin (Vitamin B-12) 1,000 mcg DAILY PO Last administered on 09/11/19at 11:10; Start 09/11/19 at 09:00 Albuterol/ Ipratropium (Duoneb) 3 ml RTQID NEB ; Start 09/10/19 at 17:00; Stop 09/10/19 at 17:35; Status DC Metoprolol Tartrate (Lopressor) 50 mg BID PO Last administered on 09/11/19at 11: 12; Start 09/10/19 at 21:00 Prednisone (Prednisone) 12.5 mg DAILY PO Last administered on 09/11/19at 11:09; Start 09/11/19 at 09:00 Simethicone (Gas-X) 80 mg TID PO Last administered on 09/11/19at 11:10; Start 09/10/19 at 21:00 Sucralfate (Carafate) 1 gm QID PO Last administered on 09/11/19at 12:46; Start 09/10/19 at 17:00 Non-Formulary Medication (Albuterol Sulfate (Albuterol Sulfate Conc Neb Soln)) 1 vial PRN Q4HRS PRN NEB SHORTNESS OF BREATH; Start 09/10/19 at 17:00; Status UNV Calcium Carbonate/ Glycine (Tums) 500 mg BID PO Last administered on 09/11/19at 11:09; Start 09/10/19 at 21:00 Fluticasone Propionate (Flonase) 2 spray DAILY NS ; Start 09/11/19 at 09:00 Venlafaxine HCl (Effexor Xr) 37.5 mg DAILY PO Last administered on 09/11/19at 11:10; Start 09/11/19 at 09:00 Famotidine (Pepcid Vial) 20 mg QHS IVP Last administered on 09/10/19at 21:12; Start 09/10/19 at 21:00 Nicardipine HCl 50 mg/Sodium Chloride 250 ml @ 25 mls/hr CONT PRN IV SEE I/O RECORD; Start 09/10/19 at 18:00 Albuterol Sulfate (Ventolin Neb Soln) 2.5 mg PRN Q6HRS PRN NEB SHORTNESS OF BREATH; Start 09/10/19 at 17:15 Albuterol/ Ipratropium (Duoneb) 3 ml RTQID NEB Last administered on 09/11/19at 11:33; Start 09/10/19 at 20:00 Pharmacy Consult (C.diff Med Screen By Rx) 1 each 1X ONCE [facility] ; Start 09/10/19 at 18:00; Stop 09/10/19 at 18:01; Status UNV Dexmedetomidine HCl 400 mcg/ Sodium Chloride 100 ml @ 0 mls/hr CONT PRN IV SEE COMMENTS Last administered on 09/11/19at 05:32; Start 09/10/19 at 18:45 Sodium Chloride 500 ml @ 500 mls/hr 1X PRN PRN IV SEE COMMENTS; Start 09/10/19 at 18:45 Atropine Sulfate (ATROPINE 0.5mg SYRINGE) 0.5 mg PRN Q5MIN PRN IV SEE COMMENTS; Start 09/10/19 at 18:45 Multivitamins/ Minerals Therapeutic (Centrum Multivit-Mineral Liq) 5 ml DAILY PEG ; Start 09/12/19 at 09:00 Active Scripts Active Reported Vitamin B-12 (Cyanocobalamin (Vitamin B-12)) 1,000 Mcg Tablet 1 Tab PO DAILY 30 Days Venlafaxine Hcl Er (Venlafaxine Hcl) 37.5 Mg Tab.er.24 1 Tab PO DAILY 30 Days Sucralfate 1 Gm Tablet 1 Tab PO QID Simethicone 80 Mg Tab.chew 1 Tab PO TID 6 Days Prednisone 20 Mg Tablet 12.5 Mg PO DAILY Metoprolol Tartrate 50 Mg Tablet 1 Tab PO BID Albuterol Sulfate Conc Neb Soln (Albuterol Sulfate) 2.5 Mg/0.5 Ml Vial.neb 1 Vial NEB PRN Q4HRS PRN Duoneb 0.5-3(2.5) Mg/3 Ml (Albuterol/Ipratropium) 3 Ml Ampul.neb 3 Ml NEB QID Flonase Allergy Relief (Fluticasone Propionate) 9.9 Ml Stout.susp 2 Sprays NS DAILY Calcium (Calcium Carbonate) 500 Mg Tab.chew 1 Tab PO BID 30 Days Allergies Allergies: Coded Allergies: No Known Drug Allergies (Unverified , 09/10/19) ROS Review of System Negative for fever, chills, weight loss, chest pain, indigestion, hematochezia, melena, and dysuria. Positive for shortness of breath, . Full 14-point review of systems is negative. Physical Exam Physical Examination General: Well-developed, well-nourished white female in no acute distress HEENT: Normocephalic andatraumatic. Tympanic membranes clear.Temporal arteriespulsatile and nontender.Fundoscopic exam unremarkable. Tracheostomy Neck: Supple without bruit, no meningismus Musculoskeletal: Stability:see neurologic. Gait exam:see neurologic. Tone:see neurologic.Strength:see neurologic. Neurological: Mental Status:orientation, memory, attention span/concentration, language, fund of knowledge: On trach shield, answers to her name, does not have any verbal output, does not follow commands, moves to minimal painful stimulation. Cranial Nerves:Pupils equal and reactive to light, extraocular movements areintact. There is no facial asymmetry. All other cranial related problems are negative except as mentioned before.Reflexes:2+ and symmetric with flexor plantar responses. Motor:2-3/5 strength with normal tone and bulk. Coordination and gait:Not cooperative. Sensory:Not cooperative. Vitals VITALS Vital Signs Date Time Temp Pulse Resp B/P (MAP) Pulse Ox O2 Delivery O2 Flow Rate FiO2 09/11/19 12:00 99.0 97 28 153/80 (104) 100 Tracheal Collar 9.0 99.0 Labs Labs Laboratory Tests Test 09/10/19 12:35 09/10/19 13:00 09/10/19 23:43 09/11/19 05:45 White Blood Count 20.0 x10^3/uL (4.0-11.0) 21.1 x10^3/uL (4.0-11.0) Red Blood Count 2.72 x10^6/uL (3.50-5.40) 2.75 x10^6/uL (3.50-5.40) Hemoglobin 7.8 g/dL (12.0-15.5) 7.8 g/dL (12.0-15.5) Hematocrit 23.2 % (36.0-47.0) 23.7 % (36.0-47.0) Mean Corpuscular Volume 86 fL (79-100) 86 fL (79-100) Mean Corpuscular Hemoglobin 29 pg (25-35) 28 pg (25-35) Mean Corpuscular Hemoglobin Concent 33 g/dL (31-37) 33 g/dL (31-37) Red Cell Distribution Width 17.6 % (11.5-14.5) 17.3 % (11.5-14.5) Platelet Count 478 x10^3/uL (140-400) 434 x10^3/uL (140-400) Neutrophils (%) (Auto) 84 % (31-73) Lymphocytes (%) (Auto) 3 % (24-48) Monocytes (%) (Auto) 11 % (0-9) Eosinophils (%) (Auto) 1 % (0-3) Basophils (%) (Auto) 0 % (0-3) Neutrophils # (Auto) 16.9 x10^3/uL (1.8-7.7) Lymphocytes # (Auto) 0.7 x10^3/uL (1.0-4.8) Monocytes # (Auto) 2.2 x10^3/uL (0.0-1.1) Eosinophils # (Auto) 0.2 x10^3/uL (0.0-0.7) Basophils # (Auto) 0.1 x10^3/uL (0.0-0.2) Segmented Neutrophils % 85 % (35-66) Band Neutrophils % 6 % (0-9) Lymphocytes % 1 % (24-48) Monocytes % 7 % (0-10) Eosinophils % 1 % (0-5) Hypersegmented Neutrophils Present Platelet Estimate Increased (ADEQUATE) Anisocytosis Slight Prothrombin Time 13.9 SEC (11.7-14.0) Prothromb Time International Ratio 1.1 (0.8-1.1) Activated Partial Thromboplast Time 28 SEC (24-38) Sodium Level 141 mmol/L (136-145) 144 mmol/L (136-145) Potassium Level 2.7 mmol/L (3.5-5.1) 3.6 mmol/L (3.5-5.1) Chloride Level 97 mmol/L (98-107) 101 mmol/L (98-107) Carbon Dioxide Level 28 mmol/L (21-32) 26 mmol/L (21-32) Anion Gap 16 (6-14) 17 (6-14) Blood Urea Nitrogen 115 mg/dL (7-20) 98 mg/dL (7-20) Creatinine 1.9 mg/dL (0.6-1.0) 1.6 mg/dL (0.6-1.0) Estimated GFR (Cockcroft-Gault) 25.9 31.6 BUN/Creatinine Ratio 61 (6-20) Glucose Level 167 mg/dL (70-99) 125 mg/dL (70-99) Calcium Level 9.7 mg/dL (8.5-10.1) 10.3 mg/dL (8.5-10.1) Magnesium Level 1.6 mg/dL (1.8-2.4) 2.2 mg/dL (1.8-2.4) Total Bilirubin 0.3 mg/dL (0.2-1.0) Aspartate Amino Transf (AST/SGOT) 27 U/L (15-37) Alanine Aminotransferase (ALT/SGPT) 37 U/L (14-59) Alkaline Phosphatase 94 U/L (46-116) Troponin I Quantitative < 0.017 ng/mL (0.000-0.055) Total Protein 6.7 g/dL (6.4-8.2) Albumin 2.7 g/dL (3.4-5.0) Albumin/Globulin Ratio 0.7 (1.0-1.7) O2 Saturation 97 % (92-99) Arterial Blood pH 7.43 (7.35-7.45) Arterial Blood pCO2 at Patient Temp 38 mmHg (35-46) Arterial Blood pO2 at Patient Temp 108 mmHg (65-108) Arterial Blood HCO3 25 mmol/L (21-28) Arterial Blood Base Excess 1 mmol/L (-3-3) FiO2 35% vent Glucose (Fingerstick) 111 mg/dL (70-99) Phosphorus Level 6.5 mg/dL (2.6-4.7) Test 09/11/19 08:40 O2 Saturation 98 % (92-99) Arterial Blood pH 7.45 (7.35-7.45) Arterial Blood pCO2 at Patient Temp 38 mmHg (35-46) Arterial Blood pO2 at Patient Temp 114 mmHg (65-108) Arterial Blood HCO3 26 mmol/L (21-28) Arterial Blood Base Excess 1 mmol/L (-3-3) FiO2 35 Laboratory Tests Test 09/10/19 23:43 09/11/19 05:45 09/11/19 08:40 Glucose (Fingerstick) 111 mg/dL (70-99) White Blood Count 21.1 x10^3/uL (4.0-11.0) Red Blood Count 2.75 x10^6/uL (3.50-5.40) Hemoglobin 7.8 g/dL (12.0-15.5) Hematocrit 23.7 % (36.0-47.0) Mean Corpuscular Volume 86 fL (79-100) Mean Corpuscular Hemoglobin 28 pg (25-35) Mean Corpuscular Hemoglobin Concent 33 g/dL (31-37) Red Cell Distribution Width 17.3 % (11.5-14.5) Platelet Count 434 x10^3/uL (140-400) Sodium Level 144 mmol/L (136-145) Potassium Level 3.6 mmol/L (3.5-5.1) Chloride Level 101 mmol/L (98-107) Carbon Dioxide Level 26 mmol/L (21-32) Anion Gap 17 (6-14) Blood Urea Nitrogen 98 mg/dL (7-20) Creatinine 1.6 mg/dL (0.6-1.0) Estimated GFR (Cockcroft-Gault) 31.6 Glucose Level 125 mg/dL (70-99) Calcium Level 10.3 mg/dL (8.5-10.1) Phosphorus Level 6.5 mg/dL (2.6-4.7) Magnesium Level 2.2 mg/dL (1.8-2.4) O2 Saturation 98 % (92-99) Arterial Blood pH 7.45 (7.35-7.45) Arterial Blood pCO2 at Patient Temp 38 mmHg (35-46) Arterial Blood pO2 at Patient Temp 114 mmHg (65-108) Arterial Blood HCO3 26 mmol/L (21-28) Arterial Blood Base Excess 1 mmol/L (-3-3) FiO2 35 Images Images EXAM: CT Head without IV contrast INDICATION: Reason: f/u ICH, compare to [facility] / Spl. Instructions: / History: TECHNIQUE: Multi-detector row CT images were obtained of the head without the use of IV contrast. All CT scans performed at this facility utilize dose optimization techniques as appropriate to the exam, including the following: Automated exposure control and adjustment of the mA and/or KV according to patient size (this includes techniques or standardized protocols for targeted exams where dose is indication/reason for exam). COMPARISON: [facility] [place] noncontrast head CT of 09/10/2027 times stamped at approximately 2240 hours FINDINGS: There is some motion artifact that degrades detail. BRAIN PARENCHYMA: The asymmetric hyperdensity in the posterior left frontal lobe is obscured by motion artifact but best appreciated on axial image 27 of 68 on series 2 and measures approximately 1.2 cm in maximum diameter. This is essentially unchanged from the previous CT of slightly under 12 hours ago. There is mild generalized frontal predominant volume loss. There is also suggestion of subcortical white matter edema in the bilateral occipital lobes. VENTRICLES & EXTRA-AXIAL SPACES: Ventricles are prominent in proportion to the degree of parenchymal volume loss present. Basilar cisterns are patent. No pathologic extra-axial fluid collection or mass. ORBITS: Orbital contents are unremarkable. SINUSES: Visualized paranasal sinuses and mastoid air cells are clear. OSSEOUS & SOFT TISSUES: Calvarium and skull base are intact. IMPRESSION: Motion degraded examination showing subtle hyperdensity in the posterior left frontal lobe near the vertex. This is suspicious for acute intraparenchymal hemorrhage, not significantly changed from the prior examination. Consider an MRI of the brain when clinically feasible in further characterization. Subtle subcortical white matter edema in the occipital lobes is also suspected, potentially reflection of reversible encephalopathy. MRI could also help confirm and further characterize if indicated. Assessment/Plan Assessment/Plan Impression: Posterior left frontal lobe subtle findings for intraparenchymal hemorrhage, not significantly changed from the prior examination. Possible posterior reversible encephalopathy New seizure related to the hemorrhage, resolved, no evidence of ongoing seizure activity Multiple medical problems and encephalopathy. Medical problems included leukocytosis and renal insufficiency, she also had hypokalemia and hypomagnesemia at admission here Recommendation: Hold on brain MRI I do not believe she needs repeat imaging studies from now on unless conditions change Certainly no need for neurosurgery Avoid anticoagulation for a week or 2 Levetiracetam for 1-3 months, then taper over 2 weeks or so Hold on EEG Aim for return to [facility] as soon as tomorrow Fully discussed with patient's . Thank you for letting me help with the patient's care. LEONEL PABLO MD Sep 11, 2019 13:31
--- NOTE | 2019-09-11 13:41 | NUR ---
SS following for discharge planning. SS reviewed pt chart and discussed with pt RN. Pt is from [facility], ; fax [phone]. Pt is currently on trach collar. SS phoned and faxed clinical updates to [facility]. SS will continue to follow for discharge planning.
[2019-09-11] MEDS ORDERED: DEXTROSE 50% 25 GM / 50ML DISP.SYRIN. IV PRN (15:30)
--- NOTE | 2019-09-11 15:45 | NUR ---
Wound Care Wound care consult for multiple wounds. Pt has healed blisters to right calf and thigh, and intact blister to right posterior ankle. Painted wounds with skin prep and covered with foam for protection. Pt has skin tear to left forearm. Tegaderm removed, wound cleansed, pictured and measured and redressed with xeroform and foam. Pt has open area to coccyx, cleansed , pictured and measured wound and redressed with xeroform and foam. Recommend to change dressings every 3 days. No other wounds noted. Pt not alert for PU teaching. Pt turned to left side with heels floated. WC will continue to follow for possible changes.
[2019-09-11] MEDS: INSULIN LISPRO 300 UNITS/3 ML VIAL. SQ SCH (17:29)
[2019-09-11] MEDS: FAMOTIDINE 20 MG/2 ML VIAL IVP SCH (20:53)
[2019-09-12] VITALS (24 sets, daily range): BP systolic 79–180; BP diastolic 40–102
[2019-09-12] MEDS: fentaNYL PF VIAL 100 MCG/2 ML VIAL IVP PRN ×3 (00:38→12:01)
[2019-09-12] MEDS: DEXMEDETOMIDINE 400 MCG in IV NORMAL SALINE 100ML 96 ML IV PRN ×4 (01:47→22:22)
[2019-09-12 04:51] LABS: HEMATOCRIT 21.7 % (36.0-47.0); HEMOGLOBIN 7.1 g/dL (12.0-15.5); RED BLOOD COUNT 2.51 x10^6/uL (3.50-5.40); RED CELL DISTRIBUTION WIDTH 17.6 % (11.5-14.5); WHITE BLOOD COUNT 17.1 x10^3/uL (4.0-11.0)
[2019-09-12 05:12] LABS: ALBUMIN 2.4 g/dL (3.4-5.0); ALBUMIN/GLOBULIN RATIO 0.6 (1.0-1.7); CALCIUM 11.3 mg/dL (8.5-10.1); CREATININE 1.6 mg/dL (0.6-1.0); GFR 31.6; TOTAL BILIRUBIN 0.3 mg/dL (0.2-1.0); TOTAL PROTEIN 6.5 g/dL (6.4-8.2)
[2019-09-12 05:16] LABS: POTASSIUM 2.6 mmol/L (3.5-5.1)
[2019-09-12] MEDS: INSULIN LISPRO 300 UNITS/3 ML VIAL. SQ SCH ×5 (06:00→23:50)
[2019-09-12] MEDS: POTASSIUM BICARB 20 MEQ EFFERVESCENT TABLET. PEG SCH ×5 (06:34→10:29)
[2019-09-12] MEDS: IPRATRPIUM/ALBUTEROL 0.5/2.5MG 3 ML NEBU. NEB SCH ×4 (07:34→19:51)
[2019-09-12] MEDS: levETIRAcetam 500 MG in IV DEXTROSE 5% 100ML 100 ML IV SCH ×2 (08:38→21:03)
[2019-09-12] MEDS: MULTIVITAMINS,THERAPEUTIC 5 ML ORAL LIQUID. PEG SCH (08:38)
[2019-09-12] MEDS: predniSONE 5 MG TABLET PO SCH (08:38)
[2019-09-12] MEDS: SUCRALFATE 1 GM TABLET. PO SCH ×4 (08:39→21:02)
[2019-09-12] MEDS: SIMETHICONE 80 MG TAB.CHEW PO SCH ×3 (08:39→21:02)
[2019-09-12] MEDS: METOPROLOL TART IMMED RELEASE 50 MG TABLET. PO SCH ×2 (08:40→21:03)
[2019-09-12] MEDS: CYANOCOBALAMIN (VITAMIN B-12) 1,000 MCG TABLET. PO SCH (08:40)
[2019-09-12] MEDS: VENLAFAXINE XR 37.5 MG CAP.ER.24H. PO SCH (08:40)
[2019-09-12] MEDS: CALCIUM CARBONATE 500 MG TAB.CHEW PO SCH ×2 (08:41→21:02)
[2019-09-12] MEDS: FLUTICASONE 50MCG/NASAL SPRAY 16GM BOTTLE. NS SCH (08:42)
--- NOTE | 2019-09-12 09:05 | PDOC ---
PROGRESS NOTES Assessment Problems Medical Problems: (1) Intraparenchymal hemorrhage of brain Status: Acute (2) Seizure Status: Acute Posterior left frontal lobe subtle findings for intraparenchymal hemorrhage, not significantly changed from the prior examination. Possible posterior reversible encephalopathy New seizure related to the hemorrhage, resolved, no evidence of ongoing seizure activity Picture of critical illness neuropathy/myopathy Multiple medical problems and encephalopathy. Medical problems included leukocytosis and renal insufficiency, she also had hypokalemia and hypomagnesemia at admission here Plan Avoid anticoagulation for a week or 2 Levetiracetam for 1-3 months, then taper over 2 weeks or so Return to [facility] today Fully discussed with patient's Subjective None Objective Vital Signs Date Time Temp Pulse Resp B/P (MAP) Pulse Ox O2 Delivery O2 Flow Rate FiO2 09/12/19 08:40 95 152/87 09/12/19 07:37 100 Tracheal Collar 8.0 09/12/19 06:25 19 09/12/19 04:00 99.0 99.0 Intake and Output 09/12/19 07:00 Intake Total 4912.29 ml Output Total 5100 ml Balance -187.71 ml Intake IV Total 1162.29 ml Tube Feeding 1832 ml Blood Product IV Normal Saline Flush 1078 ml Other 840 ml Output Urine Total 5100 ml PHYSICAL EXAM On trach shield, answers to her name, does not have any verbal output, does not follow commands, moves to minimal painful stimulation PERRL. EOMI. CN: no focal findings. Muscle tone: normal. Muscle strength: 2-3/5 DTR: 0-1+ Plantar reflex: flexor Gait: not examined in bed. Sensory exam: Not cooperative. Cerebellar:Not cooperative. Review of Relevant I have reviewed the following items yari (where applicable) has been applied. Labs Laboratory Tests Test 09/10/19 12:35 09/10/19 13:00 09/10/19 23:43 09/11/19 05:45 White Blood Count 20.0 x10^3/uL (4.0-11.0) 21.1 x10^3/uL (4.0-11.0) Red Blood Count 2.72 x10^6/uL (3.50-5.40) 2.75 x10^6/uL (3.50-5.40) Hemoglobin 7.8 g/dL (12.0-15.5) 7.8 g/dL (12.0-15.5) Hematocrit 23.2 % (36.0-47.0) 23.7 % (36.0-47.0) Mean Corpuscular Volume 86 fL (79-100) 86 fL (79-100) Mean Corpuscular Hemoglobin 29 pg (25-35) 28 pg (25-35) Mean Corpuscular Hemoglobin Concent 33 g/dL (31-37) 33 g/dL (31-37) Red Cell Distribution Width 17.6 % (11.5-14.5) 17.3 % (11.5-14.5) Platelet Count 478 x10^3/uL (140-400) 434 x10^3/uL (140-400) Neutrophils (%) (Auto) 84 % (31-73) Lymphocytes (%) (Auto) 3 % (24-48) Monocytes (%) (Auto) 11 % (0-9) Eosinophils (%) (Auto) 1 % (0-3) Basophils (%) (Auto) 0 % (0-3) Neutrophils # (Auto) 16.9 x10^3/uL (1.8-7.7) Lymphocytes # (Auto) 0.7 x10^3/uL (1.0-4.8) Monocytes # (Auto) 2.2 x10^3/uL (0.0-1.1) Eosinophils # (Auto) 0.2 x10^3/uL (0.0-0.7) Basophils # (Auto) 0.1 x10^3/uL (0.0-0.2) Segmented Neutrophils % 85 % (35-66) Band Neutrophils % 6 % (0-9) Lymphocytes % 1 % (24-48) Monocytes % 7 % (0-10) Eosinophils % 1 % (0-5) Hypersegmented Neutrophils Present Platelet Estimate Increased (ADEQUATE) Anisocytosis Slight Prothrombin Time 13.9 SEC (11.7-14.0) Prothromb Time International Ratio 1.1 (0.8-1.1) Activated Partial Thromboplast Time 28 SEC (24-38) Sodium Level 141 mmol/L (136-145) 144 mmol/L (136-145) Potassium Level 2.7 mmol/L (3.5-5.1) 3.6 mmol/L (3.5-5.1) Chloride Level 97 mmol/L (98-107) 101 mmol/L (98-107) Carbon Dioxide Level 28 mmol/L (21-32) 26 mmol/L (21-32) Anion Gap 16 (6-14) 17 (6-14) Blood Urea Nitrogen 115 mg/dL (7-20) 98 mg/dL (7-20) Creatinine 1.9 mg/dL (0.6-1.0) 1.6 mg/dL (0.6-1.0) Estimated GFR (Cockcroft-Gault) 25.9 31.6 BUN/Creatinine Ratio 61 (6-20) Glucose Level 167 mg/dL (70-99) 125 mg/dL (70-99) Calcium Level 9.7 mg/dL (8.5-10.1) 10.3 mg/dL (8.5-10.1) Magnesium Level 1.6 mg/dL (1.8-2.4) 2.2 mg/dL (1.8-2.4) Total Bilirubin 0.3 mg/dL (0.2-1.0) Aspartate Amino Transf (AST/SGOT) 27 U/L (15-37) Alanine Aminotransferase (ALT/SGPT) 37 U/L (14-59) Alkaline Phosphatase 94 U/L (46-116) Troponin I Quantitative < 0.017 ng/mL (0.000-0.055) Total Protein 6.7 g/dL (6.4-8.2) Albumin 2.7 g/dL (3.4-5.0) Albumin/Globulin Ratio 0.7 (1.0-1.7) O2 Saturation 97 % (92-99) Arterial Blood pH 7.43 (7.35-7.45) Arterial Blood pCO2 at Patient Temp 38 mmHg (35-46) Arterial Blood pO2 at Patient Temp 108 mmHg (65-108) Arterial Blood HCO3 25 mmol/L (21-28) Arterial Blood Base Excess 1 mmol/L (-3-3) FiO2 35% vent Glucose (Fingerstick) 111 mg/dL (70-99) Phosphorus Level 6.5 mg/dL (2.6-4.7) Test 09/11/19 08:40 09/11/19 17:25 09/12/19 00:42 09/12/19 04:30 O2 Saturation 98 % (92-99) Arterial Blood pH 7.45 (7.35-7.45) Arterial Blood pCO2 at Patient Temp 38 mmHg (35-46) Arterial Blood pO2 at Patient Temp 114 mmHg (65-108) Arterial Blood HCO3 26 mmol/L (21-28) Arterial Blood Base Excess 1 mmol/L (-3-3) FiO2 35 Glucose (Fingerstick) 152 mg/dL (70-99) 99 mg/dL (70-99) White Blood Count 17.1 x10^3/uL (4.0-11.0) Red Blood Count 2.51 x10^6/uL (3.50-5.40) Hemoglobin 7.1 g/dL (12.0-15.5) Hematocrit 21.7 % (36.0-47.0) Mean Corpuscular Volume 87 fL (79-100) Mean Corpuscular Hemoglobin 28 pg (25-35) Mean Corpuscular Hemoglobin Concent 33 g/dL (31-37) Red Cell Distribution Width 17.6 % (11.5-14.5) Platelet Count 347 x10^3/uL (140-400) Sodium Level 144 mmol/L (136-145) Potassium Level 2.6 mmol/L (3.5-5.1) Chloride Level 102 mmol/L (98-107) Carbon Dioxide Level 28 mmol/L (21-32) Anion Gap 14 (6-14) Blood Urea Nitrogen 81 mg/dL (7-20) Creatinine 1.6 mg/dL (0.6-1.0) Estimated GFR (Cockcroft-Gault) 31.6 BUN/Creatinine Ratio 51 (6-20) Glucose Level 133 mg/dL (70-99) Calcium Level 11.3 mg/dL (8.5-10.1) Total Bilirubin 0.3 mg/dL (0.2-1.0) Aspartate Amino Transf (AST/SGOT) 27 U/L (15-37) Alanine Aminotransferase (ALT/SGPT) 37 U/L (14-59) Alkaline Phosphatase 88 U/L (46-116) Total Protein 6.5 g/dL (6.4-8.2) Albumin 2.4 g/dL (3.4-5.0) Albumin/Globulin Ratio 0.6 (1.0-1.7) Test 09/12/19 06:17 Glucose (Fingerstick) 144 mg/dL (70-99) Laboratory Tests Test 09/11/19 17:25 09/12/19 00:42 09/12/19 04:30 09/12/19 06:17 Glucose (Fingerstick) 152 mg/dL (70-99) 99 mg/dL (70-99) 144 mg/dL (70-99) White Blood Count 17.1 x10^3/uL (4.0-11.0) Red Blood Count 2.51 x10^6/uL (3.50-5.40) Hemoglobin 7.1 g/dL (12.0-15.5) Hematocrit 21.7 % (36.0-47.0) Mean Corpuscular Volume 87 fL (79-100) Mean Corpuscular Hemoglobin 28 pg (25-35) Mean Corpuscular Hemoglobin Concent 33 g/dL (31-37) Red Cell Distribution Width 17.6 % (11.5-14.5) Platelet Count 347 x10^3/uL (140-400) Sodium Level 144 mmol/L (136-145) Potassium Level 2.6 mmol/L (3.5-5.1) Chloride Level 102 mmol/L (98-107) Carbon Dioxide Level 28 mmol/L (21-32) Anion Gap 14 (6-14) Blood Urea Nitrogen 81 mg/dL (7-20) Creatinine 1.6 mg/dL (0.6-1.0) Estimated GFR (Cockcroft-Gault) 31.6 BUN/Creatinine Ratio 51 (6-20) Glucose Level 133 mg/dL (70-99) Calcium Level 11.3 mg/dL (8.5-10.1) Total Bilirubin 0.3 mg/dL (0.2-1.0) Aspartate Amino Transf (AST/SGOT) 27 U/L (15-37) Alanine Aminotransferase (ALT/SGPT) 37 U/L (14-59) Alkaline Phosphatase 88 U/L (46-116) Total Protein 6.5 g/dL (6.4-8.2) Albumin 2.4 g/dL (3.4-5.0) Albumin/Globulin Ratio 0.6 (1.0-1.7) Medications Current Medications Levetiracetam 1000 mg/Dextrose 110 ml @ 440 mls/hr 1X ONCE IV ; Start 09/10/19 at 12:45; Stop 09/10/19 at 12:59; Status DC Ondansetron HCl (Zofran) 4 mg PRN Q8HRS PRN IV NAUSEA/VOMITING; Start 09/10/19 at 13:00; Stop 09/11/19 at 12:59; Status DC Potassium Chloride/Water 100 ml @ 100 mls/hr Q1H IV Last administered on 09/10/19at 18:33; Start 09/10/19 at 15:00; Stop 09/10/19 at 18:59; Status DC Magnesium Sulfate 50 ml @ 25 mls/hr 1X ONCE IV Last administered on 09/10/19at 14:51; Start 09/10/19 at 15:00; Stop 09/10/19 at 16:59; Status DC Sodium Chloride 1,000 ml @ 100 mls/hr Q10H IV Last administered on 09/11/19at 13:33; Start 09/10/19 at 15:45; Stop 09/11/19 at 16:20; Status DC Levetiracetam 500 mg/Dextrose 105 ml @ 420 mls/hr Q12HR IV Last administered on 09/12/19at 08:38; Start 09/11/19 at 09:00 Cyanocobalamin (Vitamin B-12) 1,000 mcg DAILY PO Last administered on 09/12/19at 08:40; Start 09/11/19 at 09:00 Albuterol/ Ipratropium (Duoneb) 3 ml RTQID NEB ; Start 09/10/19 at 17:00; Stop 09/10/19 at 17:35; Status DC Metoprolol Tartrate (Lopressor) 50 mg BID PO Last administered on 09/12/19at 08:40; Start 09/10/19 at 21:00 Prednisone (Prednisone) 12.5 mg DAILY PO Last administered on 09/12/19at 08:38; Start 09/11/19 at 09:00 Simethicone (Gas-X) 80 mg TID PO Last administered on 09/12/19at 08:39; Start 09/10/19 at 21:00 Sucralfate (Carafate) 1 gm QID PO Last administered on 09/12/19at 08:39; Start 09/10/19 at 17:00 Non-Formulary Medication (Albuterol Sulfate (Albuterol Sulfate Conc Neb Soln)) 1 vial PRN Q4HRS PRN NEB SHORTNESS OF BREATH; Start 09/10/19 at 17:00; Status UNV Calcium Carbonate/ Glycine (Tums) 500 mg BID PO Last administered on 09/11/19at 20:53; Start 09/10/19 at 21:00 Fluticasone Propionate (Flonase) 2 spray DAILY NS Last administered on 09/12/19at 08:42; Start 09/11/19 at 09:00 Venlafaxine HCl (Effexor Xr) 37.5 mg DAILY PO Last administered on 09/12/19at 08:40; Start 09/11/19 at 09:00 Famotidine (Pepcid Vial) 20 mg QHS IVP Last administered on 09/11/19at 20:53; Start 09/10/19 at 21:00 Nicardipine HCl 50 mg/Sodium Chloride 250 ml @ 25 mls/hr CONT PRN IV SEE I/O RECORD; Start 09/10/19 at 18:00 Albuterol Sulfate (Ventolin Neb Soln) 2.5 mg PRN Q6HRS PRN NEB SHORTNESS OF BREATH; Start 09/10/19 at 17:15 Albuterol/ Ipratropium (Duoneb) 3 ml RTQID NEB Last administered on 09/12/19at 07:34; Start 09/10/19 at 20:00 Pharmacy Consult (C.diff Med Screen By Rx) 1 each 1X ONCE [facility] ; Start 09/10/19 at 18:00; Stop 09/10/19 at 18:01; Status UNV Dexmedetomidine HCl 400 mcg/ Sodium Chloride 100 ml @ 0 mls/hr CONT PRN IV SEE COMMENTS Last administered on 09/12/19at 01:47; Start 09/10/19 at 18:45 Sodium Chloride 500 ml @ 500 mls/hr 1X PRN PRN IV SEE COMMENTS; Start 09/10/19 at 18:45 Atropine Sulfate (ATROPINE 0.5mg SYRINGE) 0.5 mg PRN Q5MIN PRN IV SEE COMMENTS; Start 09/10/19 at 18:45 Multivitamins/ Minerals Therapeutic (Centrum Multivit-Mineral Liq) 5 ml DAILY PEG Last administered on 09/12/19at 08:38; Start 09/12/19 at 09:00 Insulin Human Lispro (HumaLOG) 0-5 UNITS Q6HRS SQ Last administered on 09/11/19at 17:29; Start 09/11/19 at 18:00 Dextrose (Dextrose 50%-Water Syringe) 12.5 gm PRN Q15MIN PRN IV SEE COMMENTS; Start 09/11/19 at 15:30 Fentanyl Citrate (Fentanyl 2ml Vial) 25 mcg PRN Q2HR PRN IVP PAIN Last administered on 09/12/19at 05:12; Start 09/11/19 at 23:15 Potassium Bicarbonate (Potassium Effervescent Tablet) 40 meq Q1HR PEG Last administered on 09/12/19at 08:40; Start 09/12/19 at 06:00; Stop 09/12/19 at 10:30 Active Scripts Active Reported Vitamin B-12 (Cyanocobalamin (Vitamin B-12)) 1,000 Mcg Tablet 1 Tab PO DAILY 30 Days Venlafaxine Hcl Er (Venlafaxine Hcl) 37.5 Mg Tab.er.24 1 Tab PO DAILY 30 Days Sucralfate 1 Gm Tablet 1 Tab PO QID Simethicone 80 Mg Tab.chew 1 Tab PO TID 6 Days Prednisone 20 Mg Tablet 12.5 Mg PO DAILY Metoprolol Tartrate 50 Mg Tablet 1 Tab PO BID Albuterol Sulfate Conc Neb Soln (Albuterol Sulfate) 2.5 Mg/0.5 Ml Vial.neb 1 Vial NEB PRN Q4HRS PRN Duoneb 0.5-3(2.5) Mg/3 Ml (Albuterol/Ipratropium) 3 Ml Ampul.neb 3 Ml NEB QID Flonase Allergy Relief (Fluticasone Propionate) 9.9 Ml [place].susp 2 Sprays NS DAILY Calcium (Calcium Carbonate) 500 Mg Tab.chew 1 Tab PO BID 30 Days Vitals/I & O Vital Sign - Last 24 Hours 09/11/19 09/11/19 09/11/19 09/11/19 09:10 10:00 11:00 11:12 Pulse 118 121 122 Resp 28 30 B/P (MAP) 159/87 (111) 159/91 (113) 159/91 Pulse Ox 100 100 100 O2 Delivery Tracheal Collar Tracheal Collar Tracheal Collar O2 Flow Rate 8.0 9.0 9.0 09/11/19 09/11/19 09/11/19 09/11/19 11:36 11:43 12:00 13:00 Temp 99.0 99.0 Pulse 97 93 Resp 28 26 B/P (MAP) 153/80 (104) 141/80 (100) Pulse Ox 100 100 100 O2 Delivery Tracheal Collar Trach Collar Tracheal Collar Tracheal Collar O2 Flow Rate 8.0 9.0 9.0 09/11/19 09/11/19 09/11/19 09/11/19 14:00 15:00 15:30 15:44 Pulse 87 103 Resp 28 30 B/P (MAP) 133/64 (87) 167/90 (115) Pulse Ox 99 100 99 O2 Delivery Tracheal Collar Tracheal Collar Tracheal Collar Trach Collar O2 Flow Rate 9.0 9.0 8.0 09/11/19 09/11/19 09/11/19 09/11/19 16:00 17:00 18:00 19:00 Temp 99.1 99.1 99.1 99.1 Pulse 109 112 99 108 Resp 32 34 36 B/P (MAP) 165/93 (117) 166/82 (110) 161/85 (110) 150/83 (105) Pulse Ox 99 99 99 100 O2 Delivery Tracheal Collar Tracheal Collar Tracheal Collar Tracheal Collar O2 Flow Rate 9.0 9.0 9.0 9.0 09/11/19 09/11/19 09/11/19 09/11/19 20:00 20:00 20:00 20:53 Pulse 120 119 B/P (MAP) 166/90 (115) 163/94 Pulse Ox 100 99 O2 Delivery Tracheal Collar Tracheal Collar Trach Collar O2 Flow Rate 9.0 8.0 09/11/19 09/11/19 09/11/19 09/11/19 21:00 22:00 23:00 23:59 Pulse 116 96 90 Resp 35 26 19 B/P (MAP) 160/86 (110) 162/103 (122) 168/80 (109) Pulse Ox 100 100 98 O2 Delivery Tracheal Collar Tracheal Collar Tracheal Collar Trach Collar O2 Flow Rate 9.0 9.0 9.0 6/12/20 6/12/20 6/12/20 6/12/20 00:00 00:38 01:08 02:00 Temp 99.3 99.3 Pulse 98 76 Resp 30 21 B/P (MAP) 167/97 (120) 118/58 (78) Pulse Ox 98 100 100 99 O2 Delivery Tracheal Collar Tracheal Collar O2 Flow Rate 9.0 9.0 9.0 9.0 09/12/19 09/12/19 09/12/19 09/12/19 03:00 04:00 04:00 05:00 Temp 99.0 99.0 Pulse 72 68 100 Resp 21 20 25 B/P (MAP) 124/62 (82) 129/63 (85) 180/101 (127) Pulse Ox 100 100 100 O2 Delivery Tracheal Collar Trach Collar Tracheal Collar Tracheal Collar O2 Flow Rate 9.0 9.0 9.0 09/12/19 09/12/19 09/12/19 09/12/19 05:12 05:45 06:00 06:25 Pulse 112 95 Resp 22 19 B/P (MAP) 177/102 (127) 152/87 (108) Pulse Ox 100 100 100 100 O2 Delivery Tracheal Collar Tracheal Collar O2 Flow Rate 9.0 9.0 9.0 9.0 09/12/19 09/12/19 07:37 08:40 Pulse 95 B/P (MAP) 152/87 Pulse Ox 100 O2 Delivery Tracheal Collar O2 Flow Rate 8.0 Intake and Output 09/11/19 09/11/19 09/12/19 15:00 23:00 07:00 Intake Total 675 ml 1687.29 ml 2550 ml Output Total 1655 ml 1550 ml 1895 ml Balance -980 ml 137.29 ml 655 ml Justicifation of Admission Dx: Justifications for Admission: Justification of Admission Dx: N/A LEONEL PABLO MD Sep 12, 2019 09:05
--- NOTE | 2019-09-12 09:34 | SNU/HH DC ---
DISCHARGE ORDERS DISCHARGE INFORMATION: DISCHARGE DATE: Sep 12, 2019 FINAL DIAGNOSIS Problems Medical Problems: (1) Intraparenchymal hemorrhage of brain Status: Acute (2) Seizure Status: Acute CONDITION ON DISCHARGE: Stable CODE STATUS: Code Status: Full LTAC: ADMIT TO LTAC: Yes POST DISCHARGE ORDERS: ACTIVITY ORDERS: Resume previous activity DIET AFTER DISCHARGE: NPO TREATMENT/EQUIPMENT ORDERS: RESPIRATORY EQUIPMENT NEEDED: Oxygen Physical Therapy For: Evalulation/Treatment Occupational Therapy For: Evaluation/Treatment Speech Language Pathology For: Evaluation/Treatment DISCHARGE MEDICATIONS: Home Meds Reported Medications Cyanocobalamin (Vitamin B-12) (VITAMIN B-12) 1,000 Mcg Tablet, 1 TAB PO DAILY for B deficiency for 30 Days, #30 TAB 0 Refills 09/10/19 Venlafaxine Hcl (VENLAFAXINE HCL ER) 37.5 Mg Tab.er.24, 1 TAB PO DAILY for depression for 30 Days, #30 TAB 0 Refills 09/10/19 Sucralfate (SUCRALFATE) 1 Gm Tablet, 1 TAB PO QID for ulcers, #120 TAB 3 Refills 09/10/19 Simethicone (SIMETHICONE) 80 Mg Tab.chew, 1 TAB PO TID for gas for 6 Days, #20 TAB 0 Refills 09/10/19 Prednisone (PREDNISONE) 20 Mg Tablet, 12.5 MG PO DAILY for pneumonia, TAB 20 Metoprolol Tartrate (METOPROLOL TARTRATE) 50 Mg Tablet, 1 TAB PO BID for HTN, #60 TAB 5 Refills 09/10/19 Albuterol Sulfate (ALBUTEROL SULFATE CONC NEB SOLN) 2.5 Mg/0.5 Ml Vial.neb, 1 VIAL NEB PRN Q4HRS PRN for SHORTNESS OF BREATH, #60 VIAL 1 Refill 09/10/19 Ipratropium/Albuterol Sulfate (DUONEB 0.5-3(2.5) MG/3 ML) 3 Ml Ampul.neb, 3 ML NEB QID for nebulizer, EACH 09/10/19 Fluticasone Propionate (Flonase Allergy Relief) 9.9 Ml [place].susp, 2 SPRAYS NS DAILY for allegies, BOTTLE 09/10/19 Calcium Carbonate (CALCIUM) 500 Mg Tab.chew, 1 TAB PO BID for calcium supplement for 30 Days, #60 TAB 0 Refills 09/10/19 MANUELITO CEDILLO MD Sep 12, 2019 09:34
--- NOTE | 2019-09-12 10:17 | PDOC ---
PULMONARY PROGRESS NOTES Subjective responds to verbal and painful stimulus remains on TS no overnight concerns from nursing Vitals Vital Signs Date Time Temp Pulse Resp B/P (MAP) Pulse Ox O2 Delivery O2 Flow Rate FiO2 09/12/19 08:40 95 152/87 09/12/19 07:37 100 Tracheal Collar 8.0 09/12/19 06:25 19 09/12/19 04:00 99.0 99.0 Comments unable to obtain 2/2 current mental state General: Lethargic Lungs: Other (decrease bs) Cardiovascular: S1 Abdomen: Soft Extremities: Other (1+edema) Skin: Warm Labs Laboratory Tests Test 09/10/19 12:35 09/10/19 13:00 09/10/19 23:43 09/11/19 05:45 White Blood Count 20.0 x10^3/uL (4.0-11.0) 21.1 x10^3/uL (4.0-11.0) Red Blood Count 2.72 x10^6/uL (3.50-5.40) 2.75 x10^6/uL (3.50-5.40) Hemoglobin 7.8 g/dL (12.0-15.5) 7.8 g/dL (12.0-15.5) Hematocrit 23.2 % (36.0-47.0) 23.7 % (36.0-47.0) Mean Corpuscular Volume 86 fL (79-100) 86 fL (79-100) Mean Corpuscular Hemoglobin 29 pg (25-35) 28 pg (25-35) Mean Corpuscular Hemoglobin Concent 33 g/dL (31-37) 33 g/dL (31-37) Red Cell Distribution Width 17.6 % (11.5-14.5) 17.3 % (11.5-14.5) Platelet Count 478 x10^3/uL (140-400) 434 x10^3/uL (140-400) Neutrophils (%) (Auto) 84 % (31-73) Lymphocytes (%) (Auto) 3 % (24-48) Monocytes (%) (Auto) 11 % (0-9) Eosinophils (%) (Auto) 1 % (0-3) Basophils (%) (Auto) 0 % (0-3) Neutrophils # (Auto) 16.9 x10^3/uL (1.8-7.7) Lymphocytes # (Auto) 0.7 x10^3/uL (1.0-4.8) Monocytes # (Auto) 2.2 x10^3/uL (0.0-1.1) Eosinophils # (Auto) 0.2 x10^3/uL (0.0-0.7) Basophils # (Auto) 0.1 x10^3/uL (0.0-0.2) Segmented Neutrophils % 85 % (35-66) Band Neutrophils % 6 % (0-9) Lymphocytes % 1 % (24-48) Monocytes % 7 % (0-10) Eosinophils % 1 % (0-5) Hypersegmented Neutrophils Present Platelet Estimate Increased (ADEQUATE) Anisocytosis Slight Prothrombin Time 13.9 SEC (11.7-14.0) Prothromb Time International Ratio 1.1 (0.8-1.1) Activated Partial Thromboplast Time 28 SEC (24-38) Sodium Level 141 mmol/L (136-145) 144 mmol/L (136-145) Potassium Level 2.7 mmol/L (3.5-5.1) 3.6 mmol/L (3.5-5.1) Chloride Level 97 mmol/L (98-107) 101 mmol/L (98-107) Carbon Dioxide Level 28 mmol/L (21-32) 26 mmol/L (21-32) Anion Gap 16 (6-14) 17 (6-14) Blood Urea Nitrogen 115 mg/dL (7-20) 98 mg/dL (7-20) Creatinine 1.9 mg/dL (0.6-1.0) 1.6 mg/dL (0.6-1.0) Estimated GFR (Cockcroft-Gault) 25.9 31.6 BUN/Creatinine Ratio 61 (6-20) Glucose Level 167 mg/dL (70-99) 125 mg/dL (70-99) Calcium Level 9.7 mg/dL (8.5-10.1) 10.3 mg/dL (8.5-10.1) Magnesium Level 1.6 mg/dL (1.8-2.4) 2.2 mg/dL (1.8-2.4) Total Bilirubin 0.3 mg/dL (0.2-1.0) Aspartate Amino Transf (AST/SGOT) 27 U/L (15-37) Alanine Aminotransferase (ALT/SGPT) 37 U/L (14-59) Alkaline Phosphatase 94 U/L (46-116) Troponin I Quantitative < 0.017 ng/mL (0.000-0.055) Total Protein 6.7 g/dL (6.4-8.2) Albumin 2.7 g/dL (3.4-5.0) Albumin/Globulin Ratio 0.7 (1.0-1.7) O2 Saturation 97 % (92-99) Arterial Blood pH 7.43 (7.35-7.45) Arterial Blood pCO2 at Patient Temp 38 mmHg (35-46) Arterial Blood pO2 at Patient Temp 108 mmHg (65-108) Arterial Blood HCO3 25 mmol/L (21-28) Arterial Blood Base Excess 1 mmol/L (-3-3) FiO2 35% vent Glucose (Fingerstick) 111 mg/dL (70-99) Phosphorus Level 6.5 mg/dL (2.6-4.7) Test 09/11/19 08:40 09/11/19 17:25 09/12/19 00:42 09/12/19 04:30 O2 Saturation 98 % (92-99) Arterial Blood pH 7.45 (7.35-7.45) Arterial Blood pCO2 at Patient Temp 38 mmHg (35-46) Arterial Blood pO2 at Patient Temp 114 mmHg (65-108) Arterial Blood HCO3 26 mmol/L (21-28) Arterial Blood Base Excess 1 mmol/L (-3-3) FiO2 35 Glucose (Fingerstick) 152 mg/dL (70-99) 99 mg/dL (70-99) White Blood Count 17.1 x10^3/uL (4.0-11.0) Red Blood Count 2.51 x10^6/uL (3.50-5.40) Hemoglobin 7.1 g/dL (12.0-15.5) Hematocrit 21.7 % (36.0-47.0) Mean Corpuscular Volume 87 fL (79-100) Mean Corpuscular Hemoglobin 28 pg (25-35) Mean Corpuscular Hemoglobin Concent 33 g/dL (31-37) Red Cell Distribution Width 17.6 % (11.5-14.5) Platelet Count 347 x10^3/uL (140-400) Sodium Level 144 mmol/L (136-145) Potassium Level 2.6 mmol/L (3.5-5.1) Chloride Level 102 mmol/L (98-107) Carbon Dioxide Level 28 mmol/L (21-32) Anion Gap 14 (6-14) Blood Urea Nitrogen 81 mg/dL (7-20) Creatinine 1.6 mg/dL (0.6-1.0) Estimated GFR (Cockcroft-Gault) 31.6 BUN/Creatinine Ratio 51 (6-20) Glucose Level 133 mg/dL (70-99) Calcium Level 11.3 mg/dL (8.5-10.1) Total Bilirubin 0.3 mg/dL (0.2-1.0) Aspartate Amino Transf (AST/SGOT) 27 U/L (15-37) Alanine Aminotransferase (ALT/SGPT) 37 U/L (14-59) Alkaline Phosphatase 88 U/L (46-116) Total Protein 6.5 g/dL (6.4-8.2) Albumin 2.4 g/dL (3.4-5.0) Albumin/Globulin Ratio 0.6 (1.0-1.7) Test 09/12/19 06:17 Glucose (Fingerstick) 144 mg/dL (70-99) Laboratory Tests Test 09/11/19 17:25 09/12/19 00:42 09/12/19 04:30 09/12/19 06:17 Glucose (Fingerstick) 152 mg/dL (70-99) 99 mg/dL (70-99) 144 mg/dL (70-99) White Blood Count 17.1 x10^3/uL (4.0-11.0) Red Blood Count 2.51 x10^6/uL (3.50-5.40) Hemoglobin 7.1 g/dL (12.0-15.5) Hematocrit 21.7 % (36.0-47.0) Mean Corpuscular Volume 87 fL (79-100) Mean Corpuscular Hemoglobin 28 pg (25-35) Mean Corpuscular Hemoglobin Concent 33 g/dL (31-37) Red Cell Distribution Width 17.6 % (11.5-14.5) Platelet Count 347 x10^3/uL (140-400) Sodium Level 144 mmol/L (136-145) Potassium Level 2.6 mmol/L (3.5-5.1) Chloride Level 102 mmol/L (98-107) Carbon Dioxide Level 28 mmol/L (21-32) Anion Gap 14 (6-14) Blood Urea Nitrogen 81 mg/dL (7-20) Creatinine 1.6 mg/dL (0.6-1.0) Estimated GFR (Cockcroft-Gault) 31.6 BUN/Creatinine Ratio 51 (6-20) Glucose Level 133 mg/dL (70-99) Calcium Level 11.3 mg/dL (8.5-10.1) Total Bilirubin 0.3 mg/dL (0.2-1.0) Aspartate Amino Transf (AST/SGOT) 27 U/L (15-37) Alanine Aminotransferase (ALT/SGPT) 37 U/L (14-59) Alkaline Phosphatase 88 U/L (46-116) Total Protein 6.5 g/dL (6.4-8.2) Albumin 2.4 g/dL (3.4-5.0) Albumin/Globulin Ratio 0.6 (1.0-1.7) Medications Active Scripts Medications Dose Route/Sig Max Daily Dose Days Date Category Vitamin B-12 (Cyanocobalamin (Vitamin B-12)) 1,000 Mcg Tablet 1 Tab PO DAILY 30 09/10/19 Reported Venlafaxine Hcl Er (Venlafaxine Hcl) 37.5 Mg Tab.er.24 1 Tab PO DAILY 30 09/10/19 Reported Sucralfate 1 Gm Tablet 1 Tab PO QID 09/10/19 Reported Simethicone 80 Mg Tab.chew 1 Tab PO TID 6 09/10/19 Reported Prednisone 20 Mg Tablet 12.5 Mg PO DAILY 09/10/19 Reported Metoprolol Tartrate 50 Mg Tablet 1 Tab PO BID 09/10/19 Reported Albuterol Sulfate Conc Neb Soln (Albuterol Sulfate) 2.5 Mg/0.5 Ml Vial.neb 1 Vial NEB PRN Q4HRS PRN 09/10/19 Reported Duoneb 0.5-3(2.5) Mg/3 Ml (Albuterol/Ipratropium) 3 Ml Ampul.neb 3 Ml NEB QID 09/10/19 Reported Flonase Allergy Relief (Fluticasone Propionate) 9.9 Ml [place].susp 2 Sprays NS DAILY 09/10/19 Reported Calcium (Calcium Carbonate) 500 Mg Tab.chew 1 Tab PO BID 30 09/10/19 Reported Comments cxr 09/09 reviewed Impression . 1. The patient with acute hypoxic respiratory failure secondary to pneumonia and parapneumonic effusion/early empyema, requiring mechanical ventilation and s ubsequent failure to wean and eventually requiring tracheostomy. Currently, her oxygenation is stable on 35% FiO2 TS 2. New onset seizure related to acute parenchymal hemorrhage within the left parietal vertex with surrounding edema. 3. Encephalopathy secondary to parenchymal hemorrhage-- no surgical intervention 4. History of bronchiectasis. 5. Chronic obstructive pulmonary disease from secondhand tobacco exposure. 6. Recent methicillin-sensitive Staphylococcus aureus pneumonia. 7. Prior history of rib fracture from coughing. 8. Moderate protein-calorie malnutrition. 9. Leukocytosis-- improved 10. Anemia. 11. Hypokalemia. 12. Marked azotemia. Plan . RECOMMENDATIONS: The patient's pulmonary status is stable and I will continue with present TS Neurosurgery recommendations not a surgical candidate. chest x-ray.reviewed cont. IVF and monitor renal function Withhold any anticoagulation for DVT prophylaxis due to intraparenchymal bleed in the head for at least three months Anti-seizure medication per Neurology and follow their recommendation. Stress ulcer prophylaxis. Discussed at length with the patient's and RN and RT. [facility] with other consults LEO WILLIAM MD Sep 12, 2019 10:17
--- NOTE | 2019-09-12 10:22 | DS ---
DATE OF DISCHARGE: 09/12/2019 HOSPITAL COURSE: The patient is a 74-year-old female patient who was transferred from [facility] where she basically noted to have partial seizures for which she was treated with a loading dose of phenytoin and a total of about 7 mg of Ativan. She had a CT scan of the head, which showed that she has intraparenchymal hemorrhage of the brain and therefore, the patient was transferred to [facility] to consult the neurologist and neurosurgeon. She was admitted to ICU, continued on mechanical ventilation and was seen in consultation by the neurologist. She had a repeat CT scan, which showed that she has motion degraded examination showing subtle hyperdensity in the posterior left frontal lobe near the vertex. This is suspicious of acute intraparenchymal hemorrhage, no significant change from the prior examination, consider an MRI of the brain when clinically feasible for further catheterization. She does have also subtle subcortical white matter edema in the occipital lobes also suspected, potentially reflection of reversible encephalopathy. She was continued on Keppra and was seen by Dr. Rodriguez, who basically recommended to avoid any anticoagulation for at least 2 weeks. Continue with levetiracetam for 1-3 months and then taper over 2 weeks or so and recommended transferring the patient to [facility] as she remained stable hemodynamically, has had no further episode of seizures. PHYSICAL EXAMINATION: GENERAL: When I saw her today, she looked well and was clearly in no apparent respiratory distress, pale, but no jaundice, cyanosis or thyromegaly. No jugular venous distention. No lower limb edema. VITAL SIGNS: Her heart rate was 95, blood pressure was 152/87, temperature was 99, respiratory rate was 19 and oxygen saturation was 100% on 8 liters oxygen by tracheal shield. HEAD, EYES, EARS, NOSE AND THROAT: Showed normocephalic, atraumatic. NECK: Supple with tracheostomy tube in place. HEART: Showed normal first and second heart sounds. No gallop, rub or murmur. CHEST: Clear to auscultation. No crepitation or rhonchi. ABDOMEN: Distended, soft with gastrostomy tube in place. NEUROLOGIC: She is sleepy, but arousable. She opens her eyes, tracks. All her cranial nerves intact. She moves extremities spontaneously. Her intake over the last 24 hours was 1439, output was 2717. LABORATORY DATA: This morning showed a serum sodium 144, potassium 2.6, chloride 102, bicarbonate 28, anion gap of 14, BUN 81, creatinine 1.6, estimated GFR was 31 mL per minute. Her glucose 133, calcium was 11.3. Total bilirubin, AST, ALT, alkaline phosphatase were normal. Total protein was 6.5, albumin was 2.4. Her white cell count was 17,000; hemoglobin 7.1; hematocrit 21.7; MCV 87 and platelet count 347,000. Her prothrombin time, INR and aPTT were normal. DISCHARGE MEDICATIONS: She will be discharged back to [facility] to continue on venlafaxine 37.5 mg daily, Flonase 2 sprays to each nostril once a day, prednisone 12.5 mg once a day, cyanocobalamin 1000 mcg per feeding tube once a day, Keppra 500 mg twice a day, calcium carbonate 500 mg twice a day, simethicone 80 mg 3 times a day, metoprolol tartrate 50 mg twice a day, albuterol sulfate/ipratropium bromide for DuoNeb in 3 mL 4 times a day. She is also on albuterol sulfate 2.5 mg every 6 hours and sucralfate 1 gram 4 times a day. FINAL DISCHARGE DIAGNOSES: 1. Posterior left frontal lobe subtle finding for intraparenchymal hemorrhage that has not significantly changed from prior examination. 2. Possible posterior reversible encephalopathy. 3. New seizures related to hemorrhage, resolved. No evidence of ongoing seizure activity. Marked muscle weakness due to possible critical illness neuropathy/myopathy. Other medical problems include: 1. Acute hypoxic respiratory failure. 2. Chronic obstructive pulmonary disease with bronchiectasis. 3. Methicillin-resistant Staphylococcus aureus colonization. 4. Chronic sinusitis. 5. Acquired hypothyroidism. 6. Osteoporosis and osteopenia and osteoarthritis. 7. Degenerative disk disease. 8. Gastroesophageal reflux disease. 9. Hypercholesterolemia. 10. Diverticulitis of the large intestine. MANUELITO CEDILLO MD DR: DARRICK/south JOB#: [id number] / [id number]
--- NOTE | 2019-09-12 11:06 | NUR ---
SS following up with discharge planning. SS reviewed pt chart and discussed with pt RN. Discharge orders on the chart for return to [facility], ; fax [phone]. SS phoned and faxed discharge orders to [facility]. SS currently awaiting bed and discharge time. Packet and ambulance form on chart. SS will continue to follow for discharge planning.
[2019-09-12 12:00] LABS: HEMATOCRIT 23.1 % (36.0-47.0); HEMOGLOBIN 7.7 g/dL (12.0-15.5); RED BLOOD COUNT 2.69 x10^6/uL (3.50-5.40); RED CELL DISTRIBUTION WIDTH 17.5 % (11.5-14.5); WHITE BLOOD COUNT 18.8 x10^3/uL (4.0-11.0)
[2019-09-12 12:08] LABS: CALCIUM 11.9 mg/dL (8.5-10.1); CREATININE 1.5 mg/dL (0.6-1.0)
[2019-09-12 12:11] LABS: POTASSIUM 5.9 mmol/L (3.5-5.1)
[2019-09-12] MEDS: HALOPERIDOL LACTATE 5 MG/ML VIAL. IVP PRN (13:03)
[2019-09-12] MEDS: FAMOTIDINE 20 MG/2 ML VIAL IVP SCH (21:02)
[2019-09-13] VITALS (23 sets, daily range): BP systolic 84–193; BP diastolic 44–119
[2019-09-13] MEDS: DEXMEDETOMIDINE 400 MCG in IV NORMAL SALINE 100ML 96 ML IV PRN ×5 (03:04→22:33)
[2019-09-13] MEDS: INSULIN LISPRO 300 UNITS/3 ML VIAL. SQ SCH ×3 (06:00→18:03)
[2019-09-13] MEDS: fentaNYL PF VIAL 100 MCG/2 ML VIAL IVP PRN ×2 (08:28→21:53)
[2019-09-13] MEDS: IPRATRPIUM/ALBUTEROL 0.5/2.5MG 3 ML NEBU. NEB SCH ×4 (08:33→20:50)
[2019-09-13] MEDS: levETIRAcetam 500 MG in IV DEXTROSE 5% 100ML 100 ML IV SCH (08:52)
[2019-09-13] MEDS: FLUTICASONE 50MCG/NASAL SPRAY 16GM BOTTLE. NS SCH (08:53)
[2019-09-13] MEDS: SIMETHICONE 80 MG TAB.CHEW PO SCH ×3 (08:53→21:53)
[2019-09-13] MEDS: VENLAFAXINE XR 37.5 MG CAP.ER.24H. PO SCH (08:53)
[2019-09-13] MEDS: METOPROLOL TART IMMED RELEASE 50 MG TABLET. PO SCH ×2 (08:54→21:53)
[2019-09-13] MEDS: CALCIUM CARBONATE 500 MG TAB.CHEW PO SCH (08:55)
[2019-09-13] MEDS: SUCRALFATE 1 GM TABLET. PO SCH ×4 (08:55→21:53)
[2019-09-13] MEDS: CYANOCOBALAMIN (VITAMIN B-12) 1,000 MCG TABLET. PO SCH (08:55)
[2019-09-13] MEDS: predniSONE 5 MG TABLET PO SCH (08:55)
[2019-09-13] MEDS: HALOPERIDOL LACTATE 5 MG/ML VIAL. IVP PRN ×2 (08:58→17:47)
[2019-09-13] MEDS: MULTIVITAMINS,THERAPEUTIC 5 ML ORAL LIQUID. PEG SCH (09:00)
[2019-09-13 10:30] LABS: HEMATOCRIT 22.3 % (36.0-47.0); HEMOGLOBIN 7.3 g/dL (12.0-15.5); RED BLOOD COUNT 2.59 x10^6/uL (3.50-5.40); RED CELL DISTRIBUTION WIDTH 17.6 % (11.5-14.5); WHITE BLOOD COUNT 16.5 x10^3/uL (4.0-11.0)
[2019-09-13 10:39] LABS: CREATININE 1.6 mg/dL (0.6-1.0); GFR 31.6; POTASSIUM 3.1 mmol/L (3.5-5.1)
[2019-09-13 10:50] LABS: CALCIUM 12.5 mg/dL (8.5-10.1)
--- NOTE | 2019-09-13 11:47 | PDOC ---
PULMONARY PROGRESS NOTES Subjective on ts, precedex, doesnt follow my commands, has twitching movement remains on TS fio2 33%, small trach secretion Vitals Vital Signs Date Time Temp Pulse Resp B/P (MAP) Pulse Ox O2 Delivery O2 Flow Rate FiO2 09/13/19 11:29 98 Tracheal Collar 8.0 09/13/19 08:54 132 186/95 09/13/19 08:28 26 09/13/19 04:00 97.8 97.8 Comments unable to obtain 2/2 current mental state General: Lethargic HEENT: Other (nc at perrl nose clear neck trach site ok no lad no thyromegaly) Lungs: Other (decrease bs) Cardiovascular: S1, S2 Abdomen: Soft, Non-tender, Other (no mass) Extremities: Other (1+edema) Skin: Warm Labs Laboratory Tests Test 09/11/19 17:25 09/12/19 00:42 09/12/19 04:30 09/12/19 06:17 Glucose (Fingerstick) 152 mg/dL (70-99) 99 mg/dL (70-99) 144 mg/dL (70-99) White Blood Count 17.1 x10^3/uL (4.0-11.0) Red Blood Count 2.51 x10^6/uL (3.50-5.40) Hemoglobin 7.1 g/dL (12.0-15.5) Hematocrit 21.7 % (36.0-47.0) Mean Corpuscular Volume 87 fL (79-100) Mean Corpuscular Hemoglobin 28 pg (25-35) Mean Corpuscular Hemoglobin Concent 33 g/dL (31-37) Red Cell Distribution Width 17.6 % (11.5-14.5) Platelet Count 347 x10^3/uL (140-400) Sodium Level 144 mmol/L (136-145) Potassium Level 2.6 mmol/L (3.5-5.1) Chloride Level 102 mmol/L (98-107) Carbon Dioxide Level 28 mmol/L (21-32) Anion Gap 14 (6-14) Blood Urea Nitrogen 81 mg/dL (7-20) Creatinine 1.6 mg/dL (0.6-1.0) Estimated GFR (Cockcroft-Gault) 31.6 BUN/Creatinine Ratio 51 (6-20) Glucose Level 133 mg/dL (70-99) Calcium Level 11.3 mg/dL (8.5-10.1) Total Bilirubin 0.3 mg/dL (0.2-1.0) Aspartate Amino Transf (AST/SGOT) 27 U/L (15-37) Alanine Aminotransferase (ALT/SGPT) 37 U/L (14-59) Alkaline Phosphatase 88 U/L (46-116) Total Protein 6.5 g/dL (6.4-8.2) Albumin 2.4 g/dL (3.4-5.0) Albumin/Globulin Ratio 0.6 (1.0-1.7) Test 09/12/19 11:40 09/12/19 17:33 09/12/19 23:46 09/13/19 06:27 White Blood Count 18.8 x10^3/uL (4.0-11.0) Red Blood Count 2.69 x10^6/uL (3.50-5.40) Hemoglobin 7.7 g/dL (12.0-15.5) Hematocrit 23.1 % (36.0-47.0) Mean Corpuscular Volume 86 fL (79-100) Mean Corpuscular Hemoglobin 29 pg (25-35) Mean Corpuscular Hemoglobin Concent 33 g/dL (31-37) Red Cell Distribution Width 17.5 % (11.5-14.5) Platelet Count 349 x10^3/uL (140-400) Sodium Level 138 mmol/L (136-145) Potassium Level 5.9 mmol/L (3.5-5.1) Chloride Level 98 mmol/L (98-107) Carbon Dioxide Level 32 mmol/L (21-32) Anion Gap 8 (6-14) Blood Urea Nitrogen 73 mg/dL (7-20) Creatinine 1.5 mg/dL (0.6-1.0) Estimated GFR (Cockcroft-Gault) 34.0 Glucose Level 205 mg/dL (70-99) Calcium Level 11.9 mg/dL (8.5-10.1) Glucose (Fingerstick) 131 mg/dL (70-99) 143 mg/dL (70-99) 155 mg/dL (70-99) Test 09/13/19 09:30 White Blood Count 16.5 x10^3/uL (4.0-11.0) Red Blood Count 2.59 x10^6/uL (3.50-5.40) Hemoglobin 7.3 g/dL (12.0-15.5) Hematocrit 22.3 % (36.0-47.0) Mean Corpuscular Volume 86 fL (79-100) Mean Corpuscular Hemoglobin 28 pg (25-35) Mean Corpuscular Hemoglobin Concent 33 g/dL (31-37) Red Cell Distribution Width 17.6 % (11.5-14.5) Platelet Count 294 x10^3/uL (140-400) Sodium Level 140 mmol/L (136-145) Potassium Level 3.1 mmol/L (3.5-5.1) Chloride Level 97 mmol/L (98-107) Carbon Dioxide Level 38 mmol/L (21-32) Anion Gap 5 (6-14) Blood Urea Nitrogen 73 mg/dL (7-20) Creatinine 1.6 mg/dL (0.6-1.0) Estimated GFR (Cockcroft-Gault) 31.6 Glucose Level 209 mg/dL (70-99) Calcium Level 12.5 mg/dL (8.5-10.1) Laboratory Tests Test 09/12/19 17:33 09/12/19 23:46 09/13/19 06:27 09/13/19 09:30 Glucose (Fingerstick) 131 mg/dL (70-99) 143 mg/dL (70-99) 155 mg/dL (70-99) White Blood Count 16.5 x10^3/uL (4.0-11.0) Red Blood Count 2.59 x10^6/uL (3.50-5.40) Hemoglobin 7.3 g/dL (12.0-15.5) Hematocrit 22.3 % (36.0-47.0) Mean Corpuscular Volume 86 fL (79-100) Mean Corpuscular Hemoglobin 28 pg (25-35) Mean Corpuscular Hemoglobin Concent 33 g/dL (31-37) Red Cell Distribution Width 17.6 % (11.5-14.5) Platelet Count 294 x10^3/uL (140-400) Sodium Level 140 mmol/L (136-145) Potassium Level 3.1 mmol/L (3.5-5.1) Chloride Level 97 mmol/L (98-107) Carbon Dioxide Level 38 mmol/L (21-32) Anion Gap 5 (6-14) Blood Urea Nitrogen 73 mg/dL (7-20) Creatinine 1.6 mg/dL (0.6-1.0) Estimated GFR (Cockcroft-Gault) 31.6 Glucose Level 209 mg/dL (70-99) Calcium Level 12.5 mg/dL (8.5-10.1) Medications Active Scripts Medications Dose Route/Sig Max Daily Dose Days Date Category Vitamin B-12 (Cyanocobalamin (Vitamin B-12)) 1,000 Mcg Tablet 1 Tab PO DAILY 30 09/10/19 Reported Venlafaxine Hcl Er (Venlafaxine Hcl) 37.5 Mg Tab.er.24 1 Tab PO DAILY 30 09/10/19 Reported Sucralfate 1 Gm Tablet 1 Tab PO QID 09/10/19 Reported Simethicone 80 Mg Tab.chew 1 Tab PO TID 6 09/10/19 Reported Prednisone 20 Mg Tablet 12.5 Mg PO DAILY 09/10/19 Reported Metoprolol Tartrate 50 Mg Tablet 1 Tab PO BID 09/10/19 Reported Albuterol Sulfate Conc Neb Soln (Albuterol Sulfate) 2.5 Mg/0.5 Ml Vial.neb 1 Vial NEB PRN Q4HRS PRN 09/10/19 Reported Duoneb 0.5-3(2.5) Mg/3 Ml (Albuterol/Ipratropium) 3 Ml Ampul.neb 3 Ml NEB QID 09/10/19 Reported Flonase Allergy Relief (Fluticasone Propionate) 9.9 Ml [place].susp 2 Sprays NS DAILY 09/10/19 Reported Calcium (Calcium Carbonate) 500 Mg Tab.chew 1 Tab PO BID 30 09/10/19 Reported Comments cxr reviewed There is some interstitial opacity greater on the right of uncertain chronicity, could be due to interstitial infiltrate and/or edema, also some linear opacity bilaterally more likely atelectasis. Impression . 1. The patient with acute hypoxic respiratory failure secondary to pneumonia and parapneumonic effusion/early empyema, requiring mechanical ventilation and subsequent failure to wean and eventually requiring tracheostomy. Currently, her oxygenation is stable on 35% FiO2 TS 2. New onset seizure related to acute parenchymal hemorrhage within the left parietal vertex with surrounding edema. 3. Encephalopathy secondary to parenchymal hemorrhage-- no surgical intervention 4. History of bronchiectasis. 5. Chronic obstructive pulmonary disease from secondhand tobacco exposure. 6. Recent methicillin-sensitive Staphylococcus aureus pneumonia. 7. Prior history of rib fracture from coughing. 8. Moderate protein-calorie malnutrition. 9. Leukocytosis-- improved 10. Anemia. 11. Hypokalemia. 12. Marked azotemia. Plan . RECOMMENDATIONS: TS twitching, sz anti sz med per neuro Neurosurgery recommendations not a surgical candidate. chest x-ray.reviewed cont. IVF and monitor renal function Withhold any anticoagulation for DVT prophylaxis due to intraparenchymal bleed in the head for at least three months Anti-seizure medication per Neurology and follow their recommendation. Stress ulcer prophylaxis. replace k Discussed at length with the patient's and RN and RT. Ok to D/C back to [facility] today if ok with other consults including neuro KELLI CALDERON MD Sep 13, 2019 11:47
--- NOTE | 2019-09-13 11:47 | NUR ---
Spoke with Dr. Peña concerning, temperature, blood pressure, critical lab Ca 12.5, partial seizure witnessed by this RN lasting more than 5 minutes affecting right arm and shoulder only. Orders received: Consult Dr. Keys about hypercalcemia Inform Dr. Gonzales about partial seizure Start Amlodipine 10mg daily Potassium 20mEq TID Normal Saline 100mg/hr Per Dr. Peña, patient to stay in ICU and NOT transfer to [facility] due to above concerns.
[2019-09-13] MEDS: IV NORMAL SALINE 1000ML BAG 1,000 ML IV SCH ×2 (12:00→21:55)
[2019-09-13] MEDS ORDERED: ACETAMINOPHEN 650 MG/20.3 ML SOLUTION. PEG PRN (12:00)
[2019-09-13] MEDS ORDERED: levETIRAcetam 500 MG in IV DEXTROSE 5% 100ML 100 ML IV STA (12:29)
[2019-09-13] MEDS: amLODIPine BESYLATE 10 MG TABLET PO SCH (12:30)
[2019-09-13] MEDS: POTASSIUM BICARB 20 MEQ EFFERVESCENT TABLET. PEG SCH ×2 (14:25→21:50)
--- NOTE | 2019-09-13 15:08 | PDOC ---
PROGRESS NOTES Assessment Problems Medical Problems: (1) Intraparenchymal hemorrhage of brain Status: Acute (2) Seizure Status: Acute Noted to have some focal left-sided seizure activity which resolved after I gave an extra dose of levetiracetam She is on dexmedetomidine Posterior left frontal lobe subtle findings for intraparenchymal hemorrhage, not significantly changed between [address] scans. Possible posterior reversible encephalopathy New seizure related to the hemorrhage Picture of critical illness neuropathy/myopathy Multiple medical problems and encephalopathy. Medical problems included leukocytosis and renal insufficiency, she also had hypokalemia and hypomagnesemia at admission here Plan Avoid anticoagulation for a week or 2 Increase levetiracetam Levetiracetam for 1-3 months, then taper over 2 weeks or so Return to [facility] tomorrow if stable I will do an MRI and EEG on 09/14 if she is still here, but no need to delay discharge tomorrow if she is stable Subjective None Objective Vital Signs Date Time Temp Pulse Resp B/P (MAP) Pulse Ox O2 Delivery O2 Flow Rate FiO2 09/13/19 12:00 Trach Collar 8.0 09/13/19 11:29 98 09/13/19 08:54 132 186/95 09/13/19 08:28 26 09/13/19 04:00 97.8 97.8 Intake and Output 09/13/19 07:00 Intake Total 3340.7 ml Output Total 2900 ml Balance 440.7 ml Intake IV Total 461.7 ml Tube Feeding 2279 ml Other 600 ml Output Urine Total 2900 ml PHYSICAL EXAM On trach shield, no response to voice, does not have any verbal output, does not follow commands, moves to minimal painful stimulation PERRL. EOMI. CN: no focal findings. Muscle tone: normal. Muscle strength: 2-3/5 DTR: 0-1+ Plantar reflex: flexor Gait: not examined in bed. Sensory exam: Not cooperative. Cerebellar:Not cooperative. Review of Relevant I have reviewed the following items yari (where applicable) has been applied. Labs Laboratory Tests Test 09/11/19 17:25 09/12/19 00:42 09/12/19 04:30 09/12/19 06:17 Glucose (Fingerstick) 152 mg/dL (70-99) 99 mg/dL (70-99) 144 mg/dL (70-99) White Blood Count 17.1 x10^3/uL (4.0-11.0) Red Blood Count 2.51 x10^6/uL (3.50-5.40) Hemoglobin 7.1 g/dL (12.0-15.5) Hematocrit 21.7 % (36.0-47.0) Mean Corpuscular Volume 87 fL (79-100) Mean Corpuscular Hemoglobin 28 pg (25-35) Mean Corpuscular Hemoglobin Concent 33 g/dL (31-37) Red Cell Distribution Width 17.6 % (11.5-14.5) Platelet Count 347 x10^3/uL (140-400) Sodium Level 144 mmol/L (136-145) Potassium Level 2.6 mmol/L (3.5-5.1) Chloride Level 102 mmol/L (98-107) Carbon Dioxide Level 28 mmol/L (21-32) Anion Gap 14 (6-14) Blood Urea Nitrogen 81 mg/dL (7-20) Creatinine 1.6 mg/dL (0.6-1.0) Estimated GFR (Cockcroft-Gault) 31.6 BUN/Creatinine Ratio 51 (6-20) Glucose Level 133 mg/dL (70-99) Calcium Level 11.3 mg/dL (8.5-10.1) Total Bilirubin 0.3 mg/dL (0.2-1.0) Aspartate Amino Transf (AST/SGOT) 27 U/L (15-37) Alanine Aminotransferase (ALT/SGPT) 37 U/L (14-59) Alkaline Phosphatase 88 U/L (46-116) Total Protein 6.5 g/dL (6.4-8.2) Albumin 2.4 g/dL (3.4-5.0) Albumin/Globulin Ratio 0.6 (1.0-1.7) Test 09/12/19 11:40 09/12/19 17:33 09/12/19 23:46 09/13/19 06:27 White Blood Count 18.8 x10^3/uL (4.0-11.0) Red Blood Count 2.69 x10^6/uL (3.50-5.40) Hemoglobin 7.7 g/dL (12.0-15.5) Hematocrit 23.1 % (36.0-47.0) Mean Corpuscular Volume 86 fL (79-100) Mean Corpuscular Hemoglobin 29 pg (25-35) Mean Corpuscular Hemoglobin Concent 33 g/dL (31-37) Red Cell Distribution Width 17.5 % (11.5-14.5) Platelet Count 349 x10^3/uL (140-400) Sodium Level 138 mmol/L (136-145) Potassium Level 5.9 mmol/L (3.5-5.1) Chloride Level 98 mmol/L (98-107) Carbon Dioxide Level 32 mmol/L (21-32) Anion Gap 8 (6-14) Blood Urea Nitrogen 73 mg/dL (7-20) Creatinine 1.5 mg/dL (0.6-1.0) Estimated GFR (Cockcroft-Gault) 34.0 Glucose Level 205 mg/dL (70-99) Calcium Level 11.9 mg/dL (8.5-10.1) Glucose (Fingerstick) 131 mg/dL (70-99) 143 mg/dL (70-99) 155 mg/dL (70-99) Test 09/13/19 09:30 09/13/19 12:43 White Blood Count 16.5 x10^3/uL (4.0-11.0) Red Blood Count 2.59 x10^6/uL (3.50-5.40) Hemoglobin 7.3 g/dL (12.0-15.5) Hematocrit 22.3 % (36.0-47.0) Mean Corpuscular Volume 86 fL (79-100) Mean Corpuscular Hemoglobin 28 pg (25-35) Mean Corpuscular Hemoglobin Concent 33 g/dL (31-37) Red Cell Distribution Width 17.6 % (11.5-14.5) Platelet Count 294 x10^3/uL (140-400) Sodium Level 140 mmol/L (136-145) Potassium Level 3.1 mmol/L (3.5-5.1) Chloride Level 97 mmol/L (98-107) Carbon Dioxide Level 38 mmol/L (21-32) Anion Gap 5 (6-14) Blood Urea Nitrogen 73 mg/dL (7-20) Creatinine 1.6 mg/dL (0.6-1.0) Estimated GFR (Cockcroft-Gault) 31.6 Glucose Level 209 mg/dL (70-99) Calcium Level 12.5 mg/dL (8.5-10.1) Glucose (Fingerstick) 245 mg/dL (70-99) Laboratory Tests Test 09/12/19 17:33 09/12/19 23:46 09/13/19 06:27 09/13/19 09:30 Glucose (Fingerstick) 131 mg/dL (70-99) 143 mg/dL (70-99) 155 mg/dL (70-99) White Blood Count 16.5 x10^3/uL (4.0-11.0) Red Blood Count 2.59 x10^6/uL (3.50-5.40) Hemoglobin 7.3 g/dL (12.0-15.5) Hematocrit 22.3 % (36.0-47.0) Mean Corpuscular Volume 86 fL (79-100) Mean Corpuscular Hemoglobin 28 pg (25-35) Mean Corpuscular Hemoglobin Concent 33 g/dL (31-37) Red Cell Distribution Width 17.6 % (11.5-14.5) Platelet Count 294 x10^3/uL (140-400) Sodium Level 140 mmol/L (136-145) Potassium Level 3.1 mmol/L (3.5-5.1) Chloride Level 97 mmol/L (98-107) Carbon Dioxide Level 38 mmol/L (21-32) Anion Gap 5 (6-14) Blood Urea Nitrogen 73 mg/dL (7-20) Creatinine 1.6 mg/dL (0.6-1.0) Estimated GFR (Cockcroft-Gault) 31.6 Glucose Level 209 mg/dL (70-99) Calcium Level 12.5 mg/dL (8.5-10.1) Test 09/13/19 12:43 Glucose (Fingerstick) 245 mg/dL (70-99) Medications Current Medications Levetiracetam 1000 mg/Dextrose 110 ml @ 440 mls/hr 1X ONCE IV ; Start 09/10/19 at 12:45; Stop 09/10/19 at 12:59; Status DC Ondansetron HCl (Zofran) 4 mg PRN Q8HRS PRN IV NAUSEA/VOMITING; Start 09/10/19 at 13:00; Stop 09/11/19 at 12:59; Status DC Potassium Chloride/Water 100 ml @ 100 mls/hr Q1H IV Last administered on 09/10/19at 18:33; Start 09/10/19 at 15:00; Stop 09/10/19 at 18:59; Status DC Magnesium Sulfate 50 ml @ 25 mls/hr 1X ONCE IV Last administered on 09/10/19at 14:51; Start 09/10/19 at 15:00; Stop 09/10/19 at 16:59; Status DC Sodium Chloride 1,000 ml @ 100 mls/hr Q10H IV Last administered on 09/11/19at 13:33; Start 09/10/19 at 15:45; Stop 09/11/19 at 16:20; Status DC Levetiracetam 500 mg/Dextrose 105 ml @ 420 mls/hr Q12HR IV Last administered on 09/13/19at 08:52; Start 09/11/19 at 09:00 Cyanocobalamin (Vitamin B-12) 1,000 mcg DAILY PO Last administered on 09/13/19at 08:55; Start 09/11/19 at 09:00 Albuterol/ Ipratropium (Duoneb) 3 ml RTQID NEB ; Start 09/10/19 at 17:00; Stop 09/10/19 at 17:35; Status DC Metoprolol Tartrate (Lopressor) 50 mg BID PO Last administered on 09/13/19at 08:54; Start 09/10/19 at 21:00 Prednisone (Prednisone) 12.5 mg DAILY PO Last administered on 09/13/19at 08:55; Start 09/11/19 at 09:00 Simethicone (Gas-X) 80 mg TID PO Last administered on 09/13/19at 14:26; Start 09/10/19 at 21:00 Sucralfate (Carafate) 1 gm QID PO Last administered on 09/13/19 14:26; Start 09/10/19 at 17:00 Non-Formulary Medication (Albuterol Sulfate (Albuterol Sulfate Conc Neb Soln)) 1 vial PRN Q4HRS PRN NEB SHORTNESS OF BREATH; Start 09/10/19 at 17:00; Status UNV Calcium Carbonate/ Glycine (Tums) 500 mg BID PO Last administered on 6/13/20at 08:55; Start 09/10/19 at 21:00; Stop 09/13/19 at 12:47; Status DC Fluticasone Propionate (Flonase) 2 spray DAILY NS Last administered on 09/13/19at 08:53; Start 09/11/19 at 09:00 Venlafaxine HCl (Effexor Xr) 37.5 mg DAILY PO Last administered on 09/13/19at 08:53; Start 09/11/19 at 09:00 Famotidine (Pepcid Vial) 20 mg QHS IVP Last administered on 09/12/19at 21:02; Start 09/10/19 at 21:00 Nicardipine HCl 50 mg/Sodium Chloride 250 ml @ 25 mls/hr CONT PRN IV SEE I/O RECORD; Start 09/10/19 at 18:00 Albuterol Sulfate (Ventolin Neb Soln) 2.5 mg PRN Q6HRS PRN NEB SHORTNESS OF BREATH; Start 09/10/19 at 17:15 Albuterol/ Ipratropium (Duoneb) 3 ml RTQID NEB Last administered on 09/13/19at 11:27; Start 09/10/19 at 20:00 Pharmacy Consult (C.diff Med Screen By Rx) 1 each 1X ONCE [facility] ; Start 09/10/19 at 18:00; Stop 09/10/19 at 18:01; Status UNV Dexmedetomidine HCl 400 mcg/ Sodium Chloride 100 ml @ 0 mls/hr CONT PRN IV SEE COMMENTS Last administered on 09/12/19at 01:47; Start 09/10/19 at 18:45; Stop 09/12/19 at 10:27; Status DC Sodium Chloride 500 ml @ 500 mls/hr 1X PRN PRN IV SEE COMMENTS; Start 09/10/19 at 18:45 Atropine Sulfate (ATROPINE 0.5mg SYRINGE) 0.5 mg PRN Q5MIN PRN IV SEE COMMENTS; Start 09/10/19 at 18:45 Multivitamins/ Minerals Therapeutic (Centrum Multivit-Mineral Liq) 5 ml DAILY PEG Last administered on 09/13/19at 09:00; Start 09/12/19 at 09:00; Stop 09/13/19 at 12:49; Status DC Insulin Human Lispro (HumaLOG) 0-5 UNITS Q6HRS SQ Last administered on 09/13/19at 12:44; Start 09/11/19 at 18:00 Dextrose (Dextrose 50%-Water Syringe) 12.5 gm PRN Q15MIN PRN IV SEE COMMENTS; Start 09/11/19 at 15:30 Fentanyl Citrate (Fentanyl 2ml Vial) 25 mcg PRN Q2HR PRN IVP PAIN Last administered on 09/13/19at 08:28; Start 09/11/19 at 23:15 Potassium Bicarbonate (Potassium Effervescent Tablet) 40 meq Q1HR PEG Last administered on 09/12/19at 10:00; Start 09/12/19 at 06:00; Stop 09/12/19 at 10:30; Status DC Lorazepam (Ativan Inj) 0.5 mg Q6HRS PRN IVP ANXIETY / AGITATION Last administered on 09/13/19at 08:27; Start 09/12/19 at 10:30 Haloperidol Lactate (Haldol Inj) 5 mg PRN Q6HRS PRN IVP AGITATION Last administered on 09/13/19at 08:58; Start 09/12/19 at 13:00 Dexmedetomidine HCl 400 mcg/ Sodium Chloride 100 ml @ 0 mls/hr CONT PRN IV SEE COMMENTS Last administered on 09/13/19at 12:38; Start 09/12/19 at 13:45 Acetaminophen (Tylenol) 650 mg PRN Q6HRS PRN PEG MILD PAIN / TEMP > 100.3'F; Start 09/13/19 at 12:00 Hydralazine HCl (Apresoline Inj) 10 mg PRN Q4HRS PRN IVP ELEVATED BP, SEE COMMENTS; Start 09/13/19 at 12:00 Amlodipine Besylate (Norvasc) 10 mg DAILY PO ; Start 09/13/19 at 12:30 Potassium Bicarbonate (Potassium Effervescent Tablet) 20 meq TID PEG Last administered on 09/13/19at 14:25; Start 09/13/19 at 14:00 Sodium Chloride 1,000 ml @ 100 mls/hr Q10H IV ; Start 09/13/19 at 12:00 Levetiracetam 500 mg/Dextrose 105 ml @ 420 mls/hr 1X STAT IV ; Start 09/13/19 at 12:29; Stop 09/13/19 at 12:33; Status DC Levetiracetam 500 mg/Sodium Chloride 105 ml @ 420 mls/hr 1X STAT IV Last administered on 09/13/19at 12:37; Start 09/13/19 at 12:33; Stop 09/13/19 at 12:43; Status DC Active Scripts Active Reported Vitamin B-12 (Cyanocobalamin (Vitamin B-12)) 1,000 Mcg Tablet 1 Tab PO DAILY 30 Days Venlafaxine Hcl Er (Venlafaxine Hcl) 37.5 Mg Tab.er.24 1 Tab PO DAILY 30 Days Sucralfate 1 Gm Tablet 1 Tab PO QID Simethicone 80 Mg Tab.chew 1 Tab PO TID 6 Days Prednisone 20 Mg Tablet 12.5 Mg PO DAILY Metoprolol Tartrate 50 Mg Tablet 1 Tab PO BID Albuterol Sulfate Conc Neb Soln (Albuterol Sulfate) 2.5 Mg/0.5 Ml Vial.neb 1 Vial NEB PRN Q4HRS PRN Duoneb 0.5-3(2.5) Mg/3 Ml (Albuterol/Ipratropium) 3 Ml Ampul.neb 3 Ml NEB QID Flonase Allergy Relief (Fluticasone Propionate) 9.9 Ml [place].susp 2 Sprays NS DAILY Calcium (Calcium Carbonate) 500 Mg Tab.chew 1 Tab PO BID 30 Days Vitals/I & O Vital Sign - Last 24 Hours 09/12/19 09/12/19 09/12/19 09/12/19 15:44 16:00 16:00 17:00 Temp 98.0 98.0 Pulse 82 75 Resp 20 18 B/P (MAP) 81/40 (54) 79/43 (55) Pulse Ox 100 100 100 O2 Delivery Tracheal Collar Tracheal Collar Trach Collar Tracheal Collar O2 Flow Rate 8.0 9.0 9.0 09/12/19 09/12/19 09/12/19 09/12/19 18:00 19:00 19:54 20:00 Temp 98.2 98.2 Pulse 74 72 77 Resp 18 26 22 B/P (MAP) 85/43 (57) 116/62 (80) 100/52 (68) Pulse Ox 100 99 99 98 O2 Delivery Tracheal Collar Tracheal Collar Tracheal Collar Tracheal Collar O2 Flow Rate 9.0 35.0 8.0 09/12/19 09/12/19 09/12/19 09/12/19 20:00 21:00 21:03 22:00 Pulse 75 75 68 Resp 20 22 B/P (MAP) 107/58 (74) 120/67 (84) Pulse Ox 99 100 O2 Delivery Trach Collar Tracheal Collar Tracheal Collar 09/12/19 09/13/19 09/13/19 09/13/19 23:00 00:00 00:00 01:00 Temp 98.2 98.2 Pulse 68 74 89 Resp 20 22 24 B/P (MAP) 121/66 (84) 117/61 (79) 148/79 (102) Pulse Ox 99 99 100 O2 Delivery Tracheal Collar Tracheal Collar Trach Collar Tracheal Collar 09/13/19 09/13/19 09/13/19 09/13/19 02:00 03:00 04:00 04:00 Temp 97.8 97.8 Pulse 106 99 107 Resp 28 26 28 B/P (MAP) 165/84 (111) 168/92 (117) 169/94 (119) Pulse Ox 100 99 100 O2 Delivery Tracheal Collar Tracheal Collar Tracheal Collar Trach Collar O2 Flow Rate 8.0 09/13/19 09/13/19 09/13/19 09/13/19 05:00 06:00 07:00 08:00 Pulse 107 112 116 Resp 20 22 19 B/P (MAP) 185/97 (126) 177/100 (125) 177/100 (125) Pulse Ox 99 100 100 O2 Delivery Tracheal Collar Tracheal Collar Tracheal Collar Trach Collar O2 Flow Rate 8.0 09/13/19 09/13/19 09/13/19 09/13/19 08:28 08:33 08:54 11:29 Pulse 132 Resp 26 B/P (MAP) 186/95 Pulse Ox 100 99 98 O2 Delivery Tracheal Collar Tracheal Collar Tracheal Collar O2 Flow Rate 8.0 8.0 09/13/19 12:00 O2 Delivery Trach Collar O2 Flow Rate 8.0 Intake and Output 09/12/19 09/12/19 09/13/19 15:00 23:00 07:00 Intake Total 450 ml 1415 ml 1475.7 ml Output Total 700 ml 775 ml 1425 ml Balance -250 ml 640 ml 50.7 ml Justicifation of Admission Dx: Justifications for Admission: Justification of Admission Dx: N/A LEONEL PABLO MD Sep 13, 2019 15:08
--- NOTE | 2019-09-13 19:43 | CONS ---
DATE OF CONSULTATION: REQUESTING PHYSICIAN: Radha Peña MD REASON FOR CONSULTATION: Hypercalcemia. HISTORY OF PRESENT ILLNESS: A 74-year-old female who was at [facility] in [place] with infectious pneumonitis and, by her 's description, probable sepsis. She ultimately was transferred to [facility]. She has now been transferred to [facility] in intensive care setting due to new onset of partial seizures. Laboratories have now been assessed and serum calcium is elevated at 12.5, having been 11.9 the day prior to this consultation and 10.3 prior to that. In this setting, Nephrology evaluation is requested. The patient's denies any history of renal disease, malignancy or hyperparathyroidism. PAST MEDICAL HISTORY: COPD, infectious pneumonitis, tracheostomy with ventilator dependence, hypothyroidism, chronic sinusitis, osteoarthritis, degenerative disk disease, GE reflux disease, hyperlipidemia, diverticulitis, left Achilles tendon rupture, hypothyroidism, section, right knee replacement, hysterectomy, right lumbar radiofrequency ablation, three sinus surgeries, G-tube placement and tracheostomy. ALLERGIES: None. MEDICATIONS: Reviewed per medication list. FAMILY HISTORY: Esophageal cancer in her father, lung cancer in her brother and sister "kidney cancer." SOCIAL HISTORY: , resides with prior to these acute events. No tobacco use. No alcohol use. REVIEW OF SYSTEMS: Unobtainable from the patient. PHYSICAL EXAMINATION: GENERAL APPEARANCE: The patient is intubated and sedated. She has intermittent seizures involving the ____ looks to the right side. NECK: Tracheostomy in place, on ventilator. LUNGS: Clear. CARDIAC: Without S3 or rub. ABDOMEN: Soft, nontender. EXTREMITIES: Without edema. NEUROPSYCHIATRIC: Patient is sedated. She is having seizure activity intermittently. LABORATORY DATA: On presentation on 09/10/2019, creatinine 1.9, GFR 26, calcium of 9.7, gradually increasing calcium to a current value of 12.5, creatinine 1.6, GFR 31.6, potassium 3.1, sodium 140, CO2 is 38. IMPRESSION: Hypercalcemia -- the patient has been on multivitamin in addition per nursing staff, was receiving two times daily. Her serum calcium has increased throughout her acute hospital stay. RECOMMENDATIONS: 1. Discontinue calcium carbonate, she has been on 500 mg b.i.d. 2. Discontinue multivitamin. 3. No vitamin D. 4. Depending on response, might warrant further investigation to include serum protein electrophoresis, etc. However, appears to be likely secondary to calcium supplements. We will follow. YESSI GARCIA MD DR: MARIAELENA/south JOB#: [id number] / [id number]
[2019-09-13] MEDS: levETIRAcetam 750 MG in IV DEXTROSE 5% 100ML 100 ML IV SCH (21:00)
[2019-09-13] MEDS: FAMOTIDINE 20 MG/2 ML VIAL IVP SCH (21:53)
[2019-09-14] VITALS (24 sets, daily range): BP systolic 108–200; BP diastolic 49–108
[2019-09-14] MEDS: INSULIN LISPRO 300 UNITS/3 ML VIAL. SQ SCH ×4 (00:12→18:33)
[2019-09-14] MEDS: DEXMEDETOMIDINE 400 MCG in IV NORMAL SALINE 100ML 96 ML IV PRN ×4 (03:50→18:19)
[2019-09-14] MEDS: fentaNYL PF VIAL 100 MCG/2 ML VIAL IVP PRN ×2 (04:03→18:23)
[2019-09-14] MEDS: HALOPERIDOL LACTATE 5 MG/ML VIAL. IVP PRN ×3 (05:53→19:39)
[2019-09-14] MEDS: hydrALAZINE 20 MG/ML VIAL. IVP PRN ×2 (05:53→17:03)
[2019-09-14 07:01] LABS: ALBUMIN 2.6 g/dL (3.4-5.0); ALBUMIN/GLOBULIN RATIO 0.7 (1.0-1.7); CREATININE 1.4 mg/dL (0.6-1.0); GFR 36.9; TOTAL BILIRUBIN 0.3 mg/dL (0.2-1.0); TOTAL PROTEIN 6.3 g/dL (6.4-8.2)
[2019-09-14 07:15] LABS: CALCIUM 13.5 mg/dL (8.5-10.1)
[2019-09-14] MEDS ORDERED: POTASSIUM BICARB 20 MEQ EFFERVESCENT TABLET. PEG ONE (07:30)
[2019-09-14] MEDS: IPRATRPIUM/ALBUTEROL 0.5/2.5MG 3 ML NEBU. NEB SCH ×4 (08:03→20:23)
[2019-09-14] MEDS: levETIRAcetam 750 MG in IV DEXTROSE 5% 100ML 100 ML IV SCH ×2 (09:00→21:00)
[2019-09-14] MEDS: predniSONE 5 MG TABLET PO SCH (09:15)
[2019-09-14] MEDS: METOPROLOL TART IMMED RELEASE 50 MG TABLET. PO SCH ×2 (09:15→21:38)
[2019-09-14] MEDS: POTASSIUM BICARB 20 MEQ EFFERVESCENT TABLET. PEG SCH (09:15)
[2019-09-14] MEDS: SUCRALFATE 1 GM TABLET. PO SCH ×4 (09:15→21:38)
[2019-09-14] MEDS: amLODIPine BESYLATE 10 MG TABLET PO SCH (09:15)
[2019-09-14] MEDS: SIMETHICONE 80 MG TAB.CHEW PO SCH ×3 (09:15→21:37)
[2019-09-14] MEDS: VENLAFAXINE XR 37.5 MG CAP.ER.24H. PO SCH (09:15)
[2019-09-14] MEDS: CYANOCOBALAMIN (VITAMIN B-12) 1,000 MCG TABLET. PO SCH (09:16)
[2019-09-14] MEDS: FLUTICASONE 50MCG/NASAL SPRAY 16GM BOTTLE. NS SCH (09:16)
[2019-09-14] MEDS: IV NORMAL SALINE 1000ML BAG 1,000 ML IV SCH ×2 (09:33→20:28)
[2019-09-14] MEDS ORDERED: LEVE750T41 PO (09:40)
--- NOTE | 2019-09-14 10:16 | DS ---
DATE OF DISCHARGE: 09/14/2019 HOSPITAL COURSE: The patient is a 74-year-old female patient who was transferred from [facility] where she basically noted to have partial seizures for which she was treated with loading dose of fosphenytoin as well as a total of about 7 mg of Ativan. She had a CT scan of the head, which showed that she has intraparenchymal hemorrhage of the brain; therefore, the patient was transferred to [facility] to consult the neurologist and neurosurgeon. She was admitted to the ICU, continued mechanical ventilation and was seen in consultation by the neurologist. She has had a repeat CT scan showing subtle hyperdensity in the posterior left frontal lobe near the vertex, is suspicion of acute intraparenchymal hemorrhage, no significant change from prior examination. The radiologist recommended considering an MRI of the brain when clinically feasible for further characterization. She does also have subtle subcortical white matter edema in the occipital lobes, also suspected potentially reflection of reversible posterior encephalopathy. She was continued on Keppra and was seen by Dr. Rodriguez, who basically recommended to avoid any anticoagulation for at least 2 weeks. Continue with levetiracetam for 1-3 months and taper down to 2 weeks or so and recommended transferring the patient back to [facility] as she remained stable hemodynamically. Unfortunately, yesterday she has had further episodes of seizures; and therefore, her Keppra was increased to 750 mg twice a day. Her calcium was noted to be high; and therefore, we discontinued her calcium carbonate as well as multivitamin. The patient continued to be restless, agitated requiring Precedex; however, her lab work showed that her white cell count is trending down to 16,500, hemoglobin 7.3, hematocrit 22.3, MCV 86 and platelet count 294,000. Her chemistry showed a serum sodium 140, potassium 3, chloride 97, bicarbonate 35, anion gap of 8, BUN 69, creatinine 1.4, estimated GFR was 36 mL per minute. Her glucose 177, calcium was high at 13.5. Her phosphorus was 4.5. Total bilirubin 0.3. AST, ALT, alkaline phosphatase normal. Total protein 6.3, albumin 2.6. DISCHARGE MEDICATIONS: The patient will be transferred back to [facility] to continue with Keppra 750 mg IV twice a day, potassium bicarb 20 mEq 3 times a day, amlodipine 10 mg once a day, normal saline at 100 mL per hour, hydralazine 10 mg IV every 4 hours and acetaminophen 650 mg per feeding tube every 4 hours, Precedex, Haldol 5 mg IV every 6 hours, lorazepam 0.5 mg IV as needed. She is also on fentanyl citrate 25 mcg IV every 2 hours. She is on Humalog insulin as insulin sliding scale every 6 hours, venlafaxine 37.5 mg daily, fluticasone propionate for Flonase 2 sprays to each nostril once a day, prednisone 12.5 mg once a day, cyanocobalamin 1000 mcg once a day, famotidine 20 mg at bedtime, simethicone 80 mg 3 times a day, metoprolol tartrate 50 mg twice a day, DuoNeb 4 times a day, atropine sulfate 0.5 mg as per protocol. She is also on sucralfate 1 gram 4 times a day. FINAL DISCHARGE DIAGNOSES: 1. Posterior left frontal lobe, subtle finding of intraparenchymal hemorrhage that has not significantly changed from prior examination. 2. Possible posterior reversible encephalopathy. 3. New seizures related to hemorrhage, resolved. She actually did have another episode of seizure yesterday and increased her Keppra to 750 mg twice a day. 4. Marked muscle weakness due to possible critical illness neuropathy, myopathy. 5. Severe hypercalcemia with a serum calcium of 13.5 or higher if corrected for serum albumin. Other medical problems include: 1. Acute hypoxic respiratory failure for which she is now on tracheal shield maintaining her oxygen saturation at 100% on 8 liters oxygen. 2. Chronic obstructive pulmonary disease and bronchiectasis. 3. Methicillin-resistant Staphylococcus aureus colonization. 4. Chronic sinusitis. 5. Acquired hypothyroidism. 6. Osteoporosis and osteoarthritis. 7. Degenerative disk disease. 8. Gastroesophageal reflux disease. 9. Hypercholesterolemia. 10. Diverticulitis of the large intestine. We will arrange for her to repeat all her labs tomorrow. I did a recent lab for intact PTH and although her phosphate seems to be higher than that, if obviously her calcium is not caused by primary hyperparathyroidism, we will treat her with pamidronate to bring it down. MANUELITO CEDILLO MD DR: DARRICK/south JOB#: [id number] / [id number]
--- NOTE | 2019-09-14 10:55 | PDOC ---
PROGRESS NOTES Subjective Subjective SEEN IN FOLLOW UP OF ARF, HYPERCA++ AND HYPOK+ Objective Objective Vital Signs Date Time Temp Pulse Resp B/P (MAP) Pulse Ox O2 Delivery O2 Flow Rate FiO2 09/14/19 10:00 104 27 159/90 (113) 100 Tracheal Collar 09/14/19 08:03 8.0 09/14/19 08:00 98.6 98.6 Intake and Output 09/14/19 07:00 Intake Total 4224.7 ml Output Total 4250 ml Balance -25.3 ml Intake IV Total 2507.7 ml Tube Feeding 1417 ml Blood Product IV Normal Saline Flush 300 ml Output Urine Total 4250 ml Physical Exam Abdomen: Normal bowel sounds, Soft, No tenderness, No hepatosplenomegaly, No masses Heart: Regular rate, Normal S1, Normal S2, No murmurs, Gallops Extremities: No clubbing, No cyanosis, No edema, Normal pulses, No tenderness/swelling General: Alert, Oriented X3, Cooperative, No acute distress HEENT: Mucous membr. moist/pink Lungs: Clear to auscultation Diagnosis RENAL FAILURE: Acute (Acute tubular necrosis) Other HYPERCALCEMIA AND HYPOKALEMIA Assessment Assessment Problems Medical Problems: (1) Intraparenchymal hemorrhage of brain Status: Acute (2) Seizure Status: Acute Plan Plan of Care CONT ISOTONIC SALINE. NEED TO CORRECT K+ BEFORE CAN GIVE LASIX TO PROMOTE CA++ EXCRETION. PTH AND VIT D PENDING Comment Review of Relevant I have reviewed the following items yari (where applicable) has been applied. Labs Laboratory Tests Test 09/12/19 11:40 09/12/19 17:33 09/12/19 23:46 09/13/19 06:27 White Blood Count 18.8 x10^3/uL (4.0-11.0) Red Blood Count 2.69 x10^6/uL (3.50-5.40) Hemoglobin 7.7 g/dL (12.0-15.5) Hematocrit 23.1 % (36.0-47.0) Mean Corpuscular Volume 86 fL (79-100) Mean Corpuscular Hemoglobin 29 pg (25-35) Mean Corpuscular Hemoglobin Concent 33 g/dL (31-37) Red Cell Distribution Width 17.5 % (11.5-14.5) Platelet Count 349 x10^3/uL (140-400) Sodium Level 138 mmol/L (136-145) Potassium Level 5.9 mmol/L (3.5-5.1) Chloride Level 98 mmol/L (98-107) Carbon Dioxide Level 32 mmol/L (21-32) Anion Gap 8 (6-14) Blood Urea Nitrogen 73 mg/dL (7-20) Creatinine 1.5 mg/dL (0.6-1.0) Estimated GFR (Cockcroft-Gault) 34.0 Glucose Level 205 mg/dL (70-99) Calcium Level 11.9 mg/dL (8.5-10.1) Glucose (Fingerstick) 131 mg/dL (70-99) 143 mg/dL (70-99) 155 mg/dL (70-99) Test 09/13/19 09:30 09/13/19 12:43 09/13/19 18:01 09/14/19 00:09 White Blood Count 16.5 x10^3/uL (4.0-11.0) Red Blood Count 2.59 x10^6/uL (3.50-5.40) Hemoglobin 7.3 g/dL (12.0-15.5) Hematocrit 22.3 % (36.0-47.0) Mean Corpuscular Volume 86 fL (79-100) Mean Corpuscular Hemoglobin 28 pg (25-35) Mean Corpuscular Hemoglobin Concent 33 g/dL (31-37) Red Cell Distribution Width 17.6 % (11.5-14.5) Platelet Count 294 x10^3/uL (140-400) Sodium Level 140 mmol/L (136-145) Potassium Level 3.1 mmol/L (3.5-5.1) Chloride Level 97 mmol/L (98-107) Carbon Dioxide Level 38 mmol/L (21-32) Anion Gap 5 (6-14) Blood Urea Nitrogen 73 mg/dL (7-20) Creatinine 1.6 mg/dL (0.6-1.0) Estimated GFR (Cockcroft-Gault) 31.6 Glucose Level 209 mg/dL (70-99) Calcium Level 12.5 mg/dL (8.5-10.1) Glucose (Fingerstick) 245 mg/dL (70-99) 174 mg/dL (70-99) 157 mg/dL (70-99) Test 09/14/19 06:20 09/14/19 07:30 Sodium Level 140 mmol/L (136-145) Potassium Level 3.0 mmol/L (3.5-5.1) Chloride Level 97 mmol/L (98-107) Carbon Dioxide Level 35 mmol/L (21-32) Anion Gap 8 (6-14) Blood Urea Nitrogen 69 mg/dL (7-20) Creatinine 1.4 mg/dL (0.6-1.0) Estimated GFR (Cockcroft-Gault) 36.9 BUN/Creatinine Ratio 49 (6-20) Glucose Level 177 mg/dL (70-99) Calcium Level 13.5 mg/dL (8.5-10.1) Total Bilirubin 0.3 mg/dL (0.2-1.0) Aspartate Amino Transf (AST/SGOT) 37 U/L (15-37) Alanine Aminotransferase (ALT/SGPT) 40 U/L (14-59) Alkaline Phosphatase 103 U/L (46-116) Total Protein 6.3 g/dL (6.4-8.2) Albumin 2.6 g/dL (3.4-5.0) Albumin/Globulin Ratio 0.7 (1.0-1.7) Phosphorus Level 4.5 mg/dL (2.6-4.7) Laboratory Tests Test 09/13/19 12:43 09/13/19 18:01 09/14/19 00:09 09/14/19 06:20 Glucose (Fingerstick) 245 mg/dL (70-99) 174 mg/dL (70-99) 157 mg/dL (70-99) Sodium Level 140 mmol/L (136-145) Potassium Level 3.0 mmol/L (3.5-5.1) Chloride Level 97 mmol/L (98-107) Carbon Dioxide Level 35 mmol/L (21-32) Anion Gap 8 (6-14) Blood Urea Nitrogen 69 mg/dL (7-20) Creatinine 1.4 mg/dL (0.6-1.0) Estimated GFR (Cockcroft-Gault) 36.9 BUN/Creatinine Ratio 49 (6-20) Glucose Level 177 mg/dL (70-99) Calcium Level 13.5 mg/dL (8.5-10.1) Total Bilirubin 0.3 mg/dL (0.2-1.0) Aspartate Amino Transf (AST/SGOT) 37 U/L (15-37) Alanine Aminotransferase (ALT/SGPT) 40 U/L (14-59) Alkaline Phosphatase 103 U/L (46-116) Total Protein 6.3 g/dL (6.4-8.2) Albumin 2.6 g/dL (3.4-5.0) Albumin/Globulin Ratio 0.7 (1.0-1.7) Test 09/14/19 07:30 Phosphorus Level 4.5 mg/dL (2.6-4.7) Medications Current Medications Levetiracetam 1000 mg/Dextrose 110 ml @ 440 mls/hr 1X ONCE IV ; Start 09/10/19 at 12:45; Stop 09/10/19 at 12:59; Status DC Ondansetron HCl (Zofran) 4 mg PRN Q8HRS PRN IV NAUSEA/VOMITING; Start 09/10/19 at 13:00; Stop 09/11/19 at 12:59; Status DC Potassium Chloride/Water 100 ml @ 100 mls/hr Q1H IV Last administered on 09/10/19at 18:33; Start 09/10/19 at 15:00; Stop 09/10/19 at 18:59; Status DC Magnesium Sulfate 50 ml @ 25 mls/hr 1X ONCE IV Last administered on 09/10/19at 14:51; Start 09/10/19 at 15:00; Stop 09/10/19 at 16:59; Status DC Sodium Chloride 1,000 ml @ 100 mls/hr Q10H IV Last administered on 09/11/19at 13:33; Start 09/10/19 at 15:45; Stop 09/11/19 at 16:20; Status DC Levetiracetam 500 mg/Dextrose 105 ml @ 420 mls/hr Q12HR IV Last administered on 09/13/19at 08:52; Start 09/11/19 at 09:00; Stop 09/13/19 at 15:09; Status DC Cyanocobalamin (Vitamin B-12) 1,000 mcg DAILY PO Last administered on 09/14/19at 09:16; Start 09/11/19 at 09:00 Albuterol/ Ipratropium (Duoneb) 3 ml RTQID NEB ; Start 09/10/19 at 17:00; Stop 09/10/19 at 17:35; Status DC Metoprolol Tartrate (Lopressor) 50 mg BID PO Last administered on 09/14/19at 09:15; Start 09/10/19 at 21:00 Prednisone (Prednisone) 12.5 mg DAILY PO Last administered on 09/14/19at 09:15; Start 09/11/19 at 09:00 Simethicone (Gas-X) 80 mg TID PO Last administered on 09/14/19at 09:15; Start 09/10/19 at 21:00 Sucralfate (Carafate) 1 gm QID PO Last administered on 09/14/19at 09:15; Start 09/10/19 at 17:00 Non-Formulary Medication (Albuterol Sulfate (Albuterol Sulfate Conc Neb Soln)) 1 vial PRN Q4HRS PRN NEB SHORTNESS OF BREATH; Start 09/10/19 at 17:00; Status UNV Calcium Carbonate/ Glycine (Tums) 500 mg BID PO Last administered on 09/13/19at 08:55; Start 09/10/19 at 21:00; Stop 09/13/19 at 12:47; Status DC Fluticasone Propionate (Flonase) 2 spray DAILY NS Last administered on 09/14/19at 09:16; Start 09/11/19 at 09:00 Venlafaxine HCl (Effexor Xr) 37.5 mg DAILY PO Last administered on 09/14/19at 09:15; Start 09/11/19 at 09:00 Famotidine (Pepcid Vial) 20 mg QHS IVP Last administered on 09/13/19at 21:53; Start 09/10/19 at 21:00 Nicardipine HCl 50 mg/Sodium Chloride 250 ml @ 25 mls/hr CONT PRN IV SEE I/O RECORD; Start 09/10/19 at 18:00 Albuterol Sulfate (Ventolin Neb Soln) 2.5 mg PRN Q6HRS PRN NEB SHORTNESS OF BREATH; Start 09/10/19 at 17:15 Albuterol/ Ipratropium (Duoneb) 3 ml RTQID NEB Last administered on 09/14/19at 08:03; Start 09/10/19 at 20:00 Pharmacy Consult (C.diff Med Screen By Rx) 1 each 1X ONCE [facility] ; Start 09/10/19 at 18:00; Stop 09/10/19 at 18:01; Status UNV Dexmedetomidine HCl 400 mcg/ Sodium Chloride 100 ml @ 0 mls/hr CONT PRN IV SEE COMMENTS Last administered on 09/12/19at 01:47; Start 09/10/19 at 18:45; Stop 09/12/19 at 10:27; Status DC Sodium Chloride 500 ml @ 500 mls/hr 1X PRN PRN IV SEE COMMENTS; Start 09/10/19 at 18:45 Atropine Sulfate (ATROPINE 0.5mg SYRINGE) 0.5 mg PRN Q5MIN PRN IV SEE COMMENTS; Start 09/10/19 at 18:45 Multivitamins/ Minerals Therapeutic (Centrum Multivit-Mineral Liq) 5 ml DAILY PEG Last administered on 09/13/19at 09:00; Start 09/12/19 at 09:00; Stop 09/13/19 at 12:49; Status DC Insulin Human Lispro (HumaLOG) 0-5 UNITS Q6HRS SQ Last administered on 09/14/19at 00:12; Start 09/11/19 at 18:00 Dextrose (Dextrose 50%-Water Syringe) 12.5 gm PRN Q15MIN PRN IV SEE COMMENTS; Start 09/11/19 at 15:30 Fentanyl Citrate (Fentanyl 2ml Vial) 25 mcg PRN Q2HR PRN IVP PAIN Last administered on 09/14/19at 04:03; Start 09/11/19 at 23:15 Potassium Bicarbonate (Potassium Effervescent Tablet) 40 meq Q1HR PEG Last administered on 09/12/19at 10:00; Start 09/12/19 at 06:00; Stop 09/12/19 at 10:30; Status DC Lorazepam (Ativan Inj) 0.5 mg Q6HRS PRN IVP ANXIETY / AGITATION Last administered on 09/14/19at 06:44; Start 09/12/19 at 10:30 Haloperidol Lactate (Haldol Inj) 5 mg PRN Q6HRS PRN IVP AGITATION, 2ND CHOICE Last administered on 09/14/19at 05:53; Start 09/12/19 at 13:00 Dexmedetomidine HCl 400 mcg/ Sodium Chloride 100 ml @ 0 mls/hr CONT PRN IV SEE COMMENTS Last administered on 09/14/19 08:29; Start 09/12/19 at 13:45 Acetaminophen (Tylenol) 650 mg PRN Q6HRS PRN PEG MILD PAIN / TEMP > 100.3'F Last administered on 09/13/19at 21:55; Start 09/13/19 at 12:00 Hydralazine HCl (Apresoline Inj) 10 mg PRN Q4HRS PRN IVP ELEVATED BP, SEE COMMENTS Last administered on 09/14/19 05:53; Start 09/13/19 at 12:00 Amlodipine Besylate (Norvasc) 10 mg DAILY PO Last administered on 09/14/19 09:15; Start 09/13/19 at 12:30 Potassium Bicarbonate (Potassium Effervescent Tablet) 20 meq TID PEG Last administered on 09/14/19 09:15; Start 09/13/19 at 14:00 Sodium Chloride 1,000 ml @ 100 mls/hr Q10H IV Last administered on 09/14/19 09:33; Start 09/13/19 at 12:00 Levetiracetam 500 mg/Dextrose 105 ml @ 420 mls/hr 1X STAT IV ; Start 09/13/19 at 12:29; Stop 09/13/19 at 12:33; Status DC Levetiracetam 500 mg/Sodium Chloride 105 ml @ 420 mls/hr 1X STAT IV Last administered on 09/13/19at 12:37; Start 09/13/19 at 12:33; Stop 09/13/19 at 12:43; Status DC Levetiracetam 750 mg/Dextrose 107.5 ml @ 420 mls/hr Q12HR IV Last administered on 09/14/19 09:00; Start 09/13/19 at 21:00 Lorazepam (Ativan Inj) 1 mg 1X ONCE IVP Last administered on 09/13/19 11:00; Start 09/13/19 at 11:00; Stop 09/13/19 at 19:11; Status DC Potassium Bicarbonate (Potassium Effervescent Tablet) 40 meq 1X ONCE PEG Last administered on 09/14/19 08:26; Start 09/14/19 at 07:30; Stop 09/14/19 at 07:32 ; Status DC Active Scripts Active Keppra (Levetiracetam) 750 Mg Tablet 1 Tab PO BID 30 Days Reported Vitamin B-12 (Cyanocobalamin (Vitamin B-12)) 1,000 Mcg Tablet 1 Tab PO DAILY 30 Days Venlafaxine Hcl Er (Venlafaxine Hcl) 37.5 Mg Tab.er.24 1 Tab PO DAILY 30 Days Sucralfate 1 Gm Tablet 1 Tab PO QID Simethicone 80 Mg Tab.chew 1 Tab PO TID 6 Days Prednisone 20 Mg Tablet 12.5 Mg PO DAILY Metoprolol Tartrate 50 Mg Tablet 1 Tab PO BID Albuterol Sulfate Conc Neb Soln (Albuterol Sulfate) 2.5 Mg/0.5 Ml Vial.neb 1 Vial NEB PRN Q4HRS PRN Duoneb 0.5-3(2.5) Mg/3 Ml (Albuterol/Ipratropium) 3 Ml Ampul.neb 3 Ml NEB QID Flonase Allergy Relief (Fluticasone Propionate) 9.9 Ml [place].susp 2 Sprays NS DAILY Calcium (Calcium Carbonate) 500 Mg Tab.chew 1 Tab PO BID 30 Days Vitals/I & O Vital Sign - Last 24 Hours 09/13/19 09/13/19 09/13/19 09/13/19 11:00 11:29 12:00 12:00 Temp 100.0 100.0 Pulse 97 84 Resp 26 29 B/P (MAP) 147/77 (100) 94/51 (65) Pulse Ox 100 98 100 O2 Delivery Tracheal Collar Tracheal Collar Tracheal Collar Trach Collar O2 Flow Rate 8.0 8.0 09/13/19 09/13/19 09/13/19 09/13/19 12:30 13:00 14:00 15:00 Pulse 72 75 72 78 Resp 24 25 23 B/P (MAP) 97/48 97/48 (64) 84/44 (57) 105/57 (73) Pulse Ox 100 100 100 O2 Delivery Tracheal Collar Tracheal Collar Tracheal Collar 09/13/19 09/13/19 09/13/19 09/13/19 15:51 16:00 16:00 17:00 Temp 98.7 98.7 Pulse 79 91 Resp 21 21 B/P (MAP) 99/48 (65) 144/105 (118) Pulse Ox 100 100 100 O2 Delivery Tracheal Collar Tracheal Collar Trach Collar Tracheal Collar O2 Flow Rate 8.0 8.0 09/13/19 09/13/19 09/13/19 09/13/19 18:59 19:00 20:00 20:00 Temp 98.4 98.4 Pulse 100 101 Resp 21 30 B/P (MAP) 149/72 (97) 170/86 (114) Pulse Ox 84 100 100 O2 Delivery Tracheal Collar Tracheal Collar Trach Collar Tracheal Collar O2 Flow Rate 10.0 09/13/19 09/13/19 09/13/19 09/13/19 20:45 21:00 21:53 21:53 Pulse 114 111 Resp 27 35 B/P (MAP) 170/96 (120) 170/96 Pulse Ox 100 100 100 O2 Delivery Tracheal Collar Tracheal Collar Tracheal Collar O2 Flow Rate 8.0 10.0 09/13/19 09/13/19 09/14/19 09/14/19 22:00 23:00 00:00 00:00 Temp 98.8 98.8 Pulse 115 83 88 Resp 30 29 34 B/P (MAP) 193/93 (126) 136/67 (90) 114/58 (76) Pulse Ox 100 100 100 O2 Delivery Tracheal Collar Tracheal Collar Trach Collar Tracheal Collar O2 Flow Rate 10.0 09/14/19 09/14/19 09/14/19 09/14/19 01:00 02:00 03:00 04:00 Temp 97.2 97.2 Pulse 74 71 93 105 Resp 29 28 25 29 B/P (MAP) 127/63 (84) 116/57 (76) 139/67 (91) 192/108 (136) Pulse Ox 100 100 100 100 O2 Delivery Tracheal Collar Tracheal Collar Tracheal Collar Tracheal Collar 09/14/19 09/14/19 09/14/19 09/14/19 04:00 05:00 05:53 06:00 Pulse 106 112 112 Resp 36 32 B/P (MAP) 200/104 (136) 184/86 184/105 (131) Pulse Ox 100 100 O2 Delivery Trach Collar Tracheal Collar Tracheal Collar O2 Flow Rate 10.0 09/14/19 09/14/19 09/14/19 09/14/19 06:30 08:00 08:00 08:03 Temp 98.6 98.6 Pulse 142 134 Resp 27 B/P (MAP) 153/68 (96) 161/88 (112) Pulse Ox 99 100 O2 Delivery Trach Collar Tracheal Collar Tracheal Collar O2 Flow Rate 10.0 8.0 09/14/19 09/14/19 09/14/19 09/14/19 09:00 09:15 09:15 10:00 Pulse 140 138 138 104 Resp 32 27 B/P (MAP) 163/78 (106) 163/78 163/78 159/90 (113) Pulse Ox 98 100 O2 Delivery Tracheal Collar Tracheal Collar Intake and Output 09/13/19 09/13/19 09/14/19 15:00 23:00 07:00 Intake Total 510 ml 1790.1 ml 1924.6 ml Output Total 1150 ml 1550 ml 1550 ml Balance -640 ml 240.1 ml 374.6 ml YESSI GARCIA MD Sep 14, 2019 10:55
[2019-09-14] MEDS ORDERED: MAGNESIUM SULFATE 2GM 50 ML IV ONE (11:30)
--- NOTE | 2019-09-14 11:30 | PDOC ---
PULMONARY PROGRESS NOTES Subjective on ts, precedex, doesnt follow my commands, ca 13.5 remains on TS fio2 33%, small trach secretion Vitals Vital Signs Date Time Temp Pulse Resp B/P (MAP) Pulse Ox O2 Delivery O2 Flow Rate FiO2 09/14/19 10:00 104 27 159/90 (113) 100 Tracheal Collar 09/14/19 08:03 8.0 09/14/19 08:00 98.6 98.6 Comments unable to obtain 2/2 current mental state General: Lethargic HEENT: Other (nc at perrl nose clear neck trach site ok no lad no thyromegaly) Lungs: Other (decrease bs) Cardiovascular: S1, S2 Abdomen: Soft, Non-tender, Other (no mass) Extremities: Other (1+edema) Skin: Warm Labs Laboratory Tests Test 09/12/19 11:40 09/12/19 17:33 09/12/19 23:46 09/13/19 06:27 White Blood Count 18.8 x10^3/uL (4.0-11.0) Red Blood Count 2.69 x10^6/uL (3.50-5.40) Hemoglobin 7.7 g/dL (12.0-15.5) Hematocrit 23.1 % (36.0-47.0) Mean Corpuscular Volume 86 fL (79-100) Mean Corpuscular Hemoglobin 29 pg (25-35) Mean Corpuscular Hemoglobin Concent 33 g/dL (31-37) Red Cell Distribution Width 17.5 % (11.5-14.5) Platelet Count 349 x10^3/uL (140-400) Sodium Level 138 mmol/L (136-145) Potassium Level 5.9 mmol/L (3.5-5.1) Chloride Level 98 mmol/L (98-107) Carbon Dioxide Level 32 mmol/L (21-32) Anion Gap 8 (6-14) Blood Urea Nitrogen 73 mg/dL (7-20) Creatinine 1.5 mg/dL (0.6-1.0) Estimated GFR (Cockcroft-Gault) 34.0 Glucose Level 205 mg/dL (70-99) Calcium Level 11.9 mg/dL (8.5-10.1) Glucose (Fingerstick) 131 mg/dL (70-99) 143 mg/dL (70-99) 155 mg/dL (70-99) Test 09/13/19 09:30 09/13/19 12:43 09/13/19 18:01 09/14/19 00:09 White Blood Count 16.5 x10^3/uL (4.0-11.0) Red Blood Count 2.59 x10^6/uL (3.50-5.40) Hemoglobin 7.3 g/dL (12.0-15.5) Hematocrit 22.3 % (36.0-47.0) Mean Corpuscular Volume 86 fL (79-100) Mean Corpuscular Hemoglobin 28 pg (25-35) Mean Corpuscular Hemoglobin Concent 33 g/dL (31-37) Red Cell Distribution Width 17.6 % (11.5-14.5) Platelet Count 294 x10^3/uL (140-400) Sodium Level 140 mmol/L (136-145) Potassium Level 3.1 mmol/L (3.5-5.1) Chloride Level 97 mmol/L (98-107) Carbon Dioxide Level 38 mmol/L (21-32) Anion Gap 5 (6-14) Blood Urea Nitrogen 73 mg/dL (7-20) Creatinine 1.6 mg/dL (0.6-1.0) Estimated GFR (Cockcroft-Gault) 31.6 Glucose Level 209 mg/dL (70-99) Calcium Level 12.5 mg/dL (8.5-10.1) Glucose (Fingerstick) 245 mg/dL (70-99) 174 mg/dL (70-99) 157 mg/dL (70-99) Test 09/14/19 06:20 09/14/19 07:30 Sodium Level 140 mmol/L (136-145) Potassium Level 3.0 mmol/L (3.5-5.1) Chloride Level 97 mmol/L (98-107) Carbon Dioxide Level 35 mmol/L (21-32) Anion Gap 8 (6-14) Blood Urea Nitrogen 69 mg/dL (7-20) Creatinine 1.4 mg/dL (0.6-1.0) Estimated GFR (Cockcroft-Gault) 36.9 BUN/Creatinine Ratio 49 (6-20) Glucose Level 177 mg/dL (70-99) Calcium Level 13.5 mg/dL (8.5-10.1) Total Bilirubin 0.3 mg/dL (0.2-1.0) Aspartate Amino Transf (AST/SGOT) 37 U/L (15-37) Alanine Aminotransferase (ALT/SGPT) 40 U/L (14-59) Alkaline Phosphatase 103 U/L (46-116) Total Protein 6.3 g/dL (6.4-8.2) Albumin 2.6 g/dL (3.4-5.0) Albumin/Globulin Ratio 0.7 (1.0-1.7) Phosphorus Level 4.5 mg/dL (2.6-4.7) Magnesium Level 1.6 mg/dL (1.8-2.4) Laboratory Tests Test 09/13/19 12:43 09/13/19 18:01 09/14/19 00:09 09/14/19 06:20 Glucose (Fingerstick) 245 mg/dL (70-99) 174 mg/dL (70-99) 157 mg/dL (70-99) Sodium Level 140 mmol/L (136-145) Potassium Level 3.0 mmol/L (3.5-5.1) Chloride Level 97 mmol/L (98-107) Carbon Dioxide Level 35 mmol/L (21-32) Anion Gap 8 (6-14) Blood Urea Nitrogen 69 mg/dL (7-20) Creatinine 1.4 mg/dL (0.6-1.0) Estimated GFR (Cockcroft-Gault) 36.9 BUN/Creatinine Ratio 49 (6-20) Glucose Level 177 mg/dL (70-99) Calcium Level 13.5 mg/dL (8.5-10.1) Total Bilirubin 0.3 mg/dL (0.2-1.0) Aspartate Amino Transf (AST/SGOT) 37 U/L (15-37) Alanine Aminotransferase (ALT/SGPT) 40 U/L (14-59) Alkaline Phosphatase 103 U/L (46-116) Total Protein 6.3 g/dL (6.4-8.2) Albumin 2.6 g/dL (3.4-5.0) Albumin/Globulin Ratio 0.7 (1.0-1.7) Test 09/14/19 07:30 Phosphorus Level 4.5 mg/dL (2.6-4.7) Magnesium Level 1.6 mg/dL (1.8-2.4) Medications Active Scripts Medications Dose Route/Sig Max Daily Dose Days Date Category Vitamin B-12 (Cyanocobalamin (Vitamin B-12)) 1,000 Mcg Tablet 1 Tab PO DAILY 30 09/10/19 Reported Venlafaxine Hcl Er (Venlafaxine Hcl) 37.5 Mg Tab.er.24 1 Tab PO DAILY 30 09/10/19 Reported Sucralfate 1 Gm Tablet 1 Tab PO QID 09/10/19 Reported Simethicone 80 Mg Tab.chew 1 Tab PO TID 6 09/10/19 Reported Prednisone 20 Mg Tablet 12.5 Mg PO DAILY 09/10/19 Reported Metoprolol Tartrate 50 Mg Tablet 1 Tab PO BID 09/10/19 Reported Albuterol Sulfate Conc Neb Soln (Albuterol Sulfate) 2.5 Mg/0.5 Ml Vial.neb 1 Vial NEB PRN Q4HRS PRN 09/10/19 Reported Duoneb 0.5-3(2.5) Mg/3 Ml (Albuterol/Ipratropium) 3 Ml Ampul.neb 3 Ml NEB QID 09/10/19 Reported Flonase Allergy Relief (Fluticasone Propionate) 9.9 Ml [place].susp 2 Sprays NS DAILY 09/10/19 Reported Calcium (Calcium Carbonate) 500 Mg Tab.chew 1 Tab PO BID 30 09/10/19 Reported Comments cxr reviewed There is some interstitial opacity greater on the right of uncertain chronicity, could be due to interstitial infiltrate and/or edema, also some linear opacity bilaterally more likely atelectasis. Impression . 1. The patient with acute hypoxic respiratory failure secondary to pneumonia and parapneumonic effusion/early empyema, requiring mechanical ventilation and subsequent failure to wean and eventually requiring tracheostomy. Currently, her oxygenation is stable on 35% FiO2 TS 2. seizure related to acute parenchymal hemorrhage within the left parietal vertex with surrounding edema. anti sz meds increased yesterday 3. Encephalopathy secondary to parenchymal hemorrhage-- no surgical intervention 4. History of bronchiectasis. 5. Chronic obstructive pulmonary disease from secondhand tobacco exposure. 6. Recent methicillin-sensitive Staphylococcus aureus pneumonia. 7. Prior history of rib fracture from coughing. 8. Moderate protein-calorie malnutrition. 9. Leukocytosis-- improved 10. Anemia. 11. Hypokalemia. 12. Marked azotemia. Plan . RECOMMENDATIONS: TS had twitching yesterday, sz anti sz med increased per neuro Neurosurgery recommendations not a surgical candidate. chest x-ray.reviewed cont. IVF and monitor renal function, treatment of hyper ca per primary Withhold any anticoagulation for DVT prophylaxis due to intraparenchymal bleed in the head for at least three months , scds Anti-seizure medication per Neurology and follow their recommendation. Stress ulcer prophylaxis. replace k Discussed at length with the patient's and RN and RT. KELLI CALDERON MD Sep 14, 2019 11:30
--- NOTE | 2019-09-14 11:50 | PDOC ---
PROGRESS NOTES Assessment Problems Medical Problems: (1) Intraparenchymal hemorrhage of brain Status: Acute (2) Seizure Status: Acute Noted to have some focal left-sided seizure activity 09/12, which resolved after I gave an extra dose of levetiracetam She is on dexmedetomidine Posterior left frontal lobe subtle findings for intraparenchymal hemorrhage, not significantly changed between [address] scans. Possible posterior reversible encephalopathy New seizure related to the hemorrhage Picture of critical illness neuropathy/myopathy Multiple medical problems and encephalopathy. Medical problems included leukocytosis and renal insufficiency, she also had hypokalemia and hypomagnesemia at admission here Plan Avoid anticoagulation for a week or 2 Increased levetiracetam Levetiracetam for 1-3 months, then taper over 2 weeks or so MRI and EEG on 09/14 Discussed with Subjective none Objective Vital Signs Date Time Temp Pulse Resp B/P (MAP) Pulse Ox O2 Delivery O2 Flow Rate FiO2 09/14/19 10:00 104 27 159/90 (113) 100 Tracheal Collar 09/14/19 08:03 8.0 09/14/19 08:00 98.6 98.6 Intake and Output 09/14/19 07:00 Intake Total 4224.7 ml Output Total 4250 ml Balance -25.3 ml Intake IV Total 2507.7 ml Tube Feeding 1417 ml Blood Product IV Normal Saline Flush 300 ml Output Urine Total 4250 ml PHYSICAL EXAM On trach shield, no response to voice, does not have any verbal output, does not follow commands, moves to minimal painful stimulation PERRL. EOMI. CN: no focal findings. Muscle tone: normal. Muscle strength: 2-3/5, spontaneous movement of the left arm, no spontaneous movement of other extremities DTR: 0-1+ Plantar reflex: flexor Gait: not examined in bed. Sensory exam: Not cooperative. Cerebellar:Not cooperative. Review of Relevant I have reviewed the following items yari (where applicable) has been applied. Labs Laboratory Tests Test 09/12/19 17:33 09/12/19 23:46 09/13/19 06:27 09/13/19 09:30 Glucose (Fingerstick) 131 mg/dL (70-99) 143 mg/dL (70-99) 155 mg/dL (70-99) White Blood Count 16.5 x10^3/uL (4.0-11.0) Red Blood Count 2.59 x10^6/uL (3.50-5.40) Hemoglobin 7.3 g/dL (12.0-15.5) Hematocrit 22.3 % (36.0-47.0) Mean Corpuscular Volume 86 fL (79-100) Mean Corpuscular Hemoglobin 28 pg (25-35) Mean Corpuscular Hemoglobin Concent 33 g/dL (31-37) Red Cell Distribution Width 17.6 % (11.5-14.5) Platelet Count 294 x10^3/uL (140-400) Sodium Level 140 mmol/L (136-145) Potassium Level 3.1 mmol/L (3.5-5.1) Chloride Level 97 mmol/L (98-107) Carbon Dioxide Level 38 mmol/L (21-32) Anion Gap 5 (6-14) Blood Urea Nitrogen 73 mg/dL (7-20) Creatinine 1.6 mg/dL (0.6-1.0) Estimated GFR (Cockcroft-Gault) 31.6 Glucose Level 209 mg/dL (70-99) Calcium Level 12.5 mg/dL (8.5-10.1) Test 09/13/19 12:43 09/13/19 18:01 09/14/19 00:09 09/14/19 06:20 Glucose (Fingerstick) 245 mg/dL (70-99) 174 mg/dL (70-99) 157 mg/dL (70-99) Sodium Level 140 mmol/L (136-145) Potassium Level 3.0 mmol/L (3.5-5.1) Chloride Level 97 mmol/L (98-107) Carbon Dioxide Level 35 mmol/L (21-32) Anion Gap 8 (6-14) Blood Urea Nitrogen 69 mg/dL (7-20) Creatinine 1.4 mg/dL (0.6-1.0) Estimated GFR (Cockcroft-Gault) 36.9 BUN/Creatinine Ratio 49 (6-20) Glucose Level 177 mg/dL (70-99) Calcium Level 13.5 mg/dL (8.5-10.1) Total Bilirubin 0.3 mg/dL (0.2-1.0) Aspartate Amino Transf (AST/SGOT) 37 U/L (15-37) Alanine Aminotransferase (ALT/SGPT) 40 U/L (14-59) Alkaline Phosphatase 103 U/L (46-116) Total Protein 6.3 g/dL (6.4-8.2) Albumin 2.6 g/dL (3.4-5.0) Albumin/Globulin Ratio 0.7 (1.0-1.7) Test 09/14/19 07:30 Phosphorus Level 4.5 mg/dL (2.6-4.7) Magnesium Level 1.6 mg/dL (1.8-2.4) Laboratory Tests Test 09/13/19 12:43 09/13/19 18:01 09/14/19 00:09 09/14/19 06:20 Glucose (Fingerstick) 245 mg/dL (70-99) 174 mg/dL (70-99) 157 mg/dL (70-99) Sodium Level 140 mmol/L (136-145) Potassium Level 3.0 mmol/L (3.5-5.1) Chloride Level 97 mmol/L (98-107) Carbon Dioxide Level 35 mmol/L (21-32) Anion Gap 8 (6-14) Blood Urea Nitrogen 69 mg/dL (7-20) Creatinine 1.4 mg/dL (0.6-1.0) Estimated GFR (Cockcroft-Gault) 36.9 BUN/Creatinine Ratio 49 (6-20) Glucose Level 177 mg/dL (70-99) Calcium Level 13.5 mg/dL (8.5-10.1) Total Bilirubin 0.3 mg/dL (0.2-1.0) Aspartate Amino Transf (AST/SGOT) 37 U/L (15-37) Alanine Aminotransferase (ALT/SGPT) 40 U/L (14-59) Alkaline Phosphatase 103 U/L (46-116) Total Protein 6.3 g/dL (6.4-8.2) Albumin 2.6 g/dL (3.4-5.0) Albumin/Globulin Ratio 0.7 (1.0-1.7) Test 09/14/19 07:30 Phosphorus Level 4.5 mg/dL (2.6-4.7) Magnesium Level 1.6 mg/dL (1.8-2.4) Medications Current Medications Levetiracetam 1000 mg/Dextrose 110 ml @ 440 mls/hr 1X ONCE IV ; Start 09/10/19 at 12:45; Stop 09/10/19 at 12:59; Status DC Ondansetron HCl (Zofran) 4 mg PRN Q8HRS PRN IV NAUSEA/VOMITING; Start 09/10/19 at 13:00; Stop 09/11/19 at 12:59; Status DC Potassium Chloride/Water 100 ml @ 100 mls/hr Q1H IV Last administered on 09/10/19at 18:33; Start 09/10/19 at 15:00; Stop 09/10/19 at 18:59; Status DC Magnesium Sulfate 50 ml @ 25 mls/hr 1X ONCE IV Last administered on 09/10/19at 14:51; Start 09/10/19 at 15:00; Stop 09/10/19 at 16:59; Status DC Sodium Chloride 1,000 ml @ 100 mls/hr Q10H IV Last administered on 09/11/19at 13:33; Start 09/10/19 at 15:45; Stop 09/11/19 at 16:20; Status DC Levetiracetam 500 mg/Dextrose 105 ml @ 420 mls/hr Q12HR IV Last administered on 09/13/19at 08:52; Start 09/11/19 at 09:00; Stop 09/13/19 at 15:09; Status DC Cyanocobalamin (Vitamin B-12) 1,000 mcg DAILY PO Last administered on 09/14/19at 09:16; Start 09/11/19 at 09:00 Albuterol/ Ipratropium (Duoneb) 3 ml RTQID NEB ; Start 09/10/19 at 17:00; Stop 09/10/19 at 17:35; Status DC Metoprolol Tartrate (Lopressor) 50 mg BID PO Last administered on 09/14/19at 09:15; Start 09/10/19 at 21:00 Prednisone (Prednisone) 12.5 mg DAILY PO Last administered on 09/14/19at 09:15; Start 09/11/19 at 09:00 Simethicone (Gas-X) 80 mg TID PO Last administered on 09/14/19at 09:15; Start 09/10/19 at 21:00 Sucralfate (Carafate) 1 gm QID PO Last administered on 09/14/19at 09:15; Start 09/10/19 at 17:00 Non-Formulary Medication (Albuterol Sulfate (Albuterol Sulfate Conc Neb Soln)) 1 vial PRN Q4HRS PRN NEB SHORTNESS OF BREATH; Start 09/10/19 at 17:00; Status UNV Calcium Carbonate/ Glycine (Tums) 500 mg BID PO Last administered on 09/13/19at 08:55; Start 09/10/19 at 21:00; Stop 09/13/19 at 12:47; Status DC Fluticasone Propionate (Flonase) 2 spray DAILY NS Last administered on 09/14/19at 09:16; Start 09/11/19 at 09:00 Venlafaxine HCl (Effexor Xr) 37.5 mg DAILY PO Last administered on 09/14/19at 09 :15; Start 09/11/19 at 09:00 Famotidine (Pepcid Vial) 20 mg QHS IVP Last administered on 09/13/19at 21:53; Start 09/10/19 at 21:00 Nicardipine HCl 50 mg/Sodium Chloride 250 ml @ 25 mls/hr CONT PRN IV SEE I/O RECORD; Start 09/10/19 at 18:00 Albuterol Sulfate (Ventolin Neb Soln) 2.5 mg PRN Q6HRS PRN NEB SHORTNESS OF BREATH; Start 09/10/19 at 17:15 Albuterol/ Ipratropium (Duoneb) 3 ml RTQID NEB Last administered on 09/14/19at 08:03; Start 09/10/19 at 20:00 Pharmacy Consult (C.diff Med Screen By Rx) 1 each 1X ONCE [facility] ; Start 09/10/19 at 18:00; Stop 09/10/19 at 18:01; Status UNV Dexmedetomidine HCl 400 mcg/ Sodium Chloride 100 ml @ 0 mls/hr CONT PRN IV SEE COMMENTS Last administered on 09/12/19at 01:47; Start 09/10/19 at 18:45; Stop 09/12/19 at 10:27; Status DC Sodium Chloride 500 ml @ 500 mls/hr 1X PRN PRN IV SEE COMMENTS; Start 09/10/19 at 18:45 Atropine Sulfate (ATROPINE 0.5mg SYRINGE) 0.5 mg PRN Q5MIN PRN IV SEE COMMENTS; Start 09/10/19 at 18:45 Multivitamins/ Minerals Therapeutic (Centrum Multivit-Mineral Liq) 5 ml DAILY PEG Last administered on 09/13/19 09:00; Start 09/12/19 at 09:00; Stop 09/13/19 at 12:49; Status DC Insulin Human Lispro (HumaLOG) 0-5 UNITS Q6HRS SQ Last administered on 09/14/19at 00:12; Start 09/11/19 at 18:00 Dextrose (Dextrose 50%-Water Syringe) 12.5 gm PRN Q15MIN PRN IV SEE COMMENTS; Start 09/11/19 at 15:30 Fentanyl Citrate (Fentanyl 2ml Vial) 25 mcg PRN Q2HR PRN IVP PAIN Last administered on 09/14/19 04:03; Start 09/11/19 at 23:15 Potassium Bicarbonate (Potassium Effervescent Tablet) 40 meq Q1HR PEG Last administered on 09/12/19at 10:00; Start 09/12/19 at 06:00; Stop 09/12/19 at 10:30; Status DC Lorazepam (Ativan Inj) 0.5 mg Q6HRS PRN IVP ANXIETY / AGITATION Last administered on 09/14/19 06:44; Start 09/12/19 at 10:30 Haloperidol Lactate (Haldol Inj) 5 mg PRN Q6HRS PRN IVP AGITATION, 2ND CHOICE Last administered on 09/14/19 05:53; Start 09/12/19 at 13:00 Dexmedetomidine HCl 400 mcg/ Sodium Chloride 100 ml @ 0 mls/hr CONT PRN IV SEE COMMENTS Last administered on 09/14/19 08:29; Start 09/12/19 at 13:45 Acetaminophen (Tylenol) 650 mg PRN Q6HRS PRN PEG MILD PAIN / TEMP > 100.3'F Last administered on 09/13/19 21:55; Start 09/13/19 at 12:00 Hydralazine HCl (Apresoline Inj) 10 mg PRN Q4HRS PRN IVP ELEVATED BP, SEE COMMENTS Last administered on 09/14/19 05:53; Start 09/13/19 at 12:00 Amlodipine Besylate (Norvasc) 10 mg DAILY PO Last administered on 09/14/19 09:15; Start 09/13/19 at 12:30 Potassium Bicarbonate (Potassium Effervescent Tablet) 20 meq TID PEG Last administered on 09/14/19at 09:15; Start 09/13/19 at 14:00; Stop 09/14/19 at 10:55; Status DC Sodium Chloride 1,000 ml @ 100 mls/hr Q10H IV Last administered on 09/14/19at 09:33; Start 09/13/19 at 12:00 Levetiracetam 500 mg/Dextrose 105 ml @ 420 mls/hr 1X STAT IV ; Start 09/13/19 at 12:29; Stop 09/13/19 at 12:33; Status DC Levetiracetam 500 mg/Sodium Chloride 105 ml @ 420 mls/hr 1X STAT IV Last administered on 09/13/19at 12:37; Start 09/13/19 at 12:33; Stop 09/13/19 at 12:43; Status DC Levetiracetam 750 mg/Dextrose 107.5 ml @ 420 mls/hr Q12HR IV Last administered on 09/14/19at 09:00; Start 09/13/19 at 21:00 Lorazepam (Ativan Inj) 1 mg 1X ONCE IVP Last administered on 09/13/19at 11:00; Start 09/13/19 at 11:00; Stop 09/13/19 at 19:11; Status DC Potassium Bicarbonate (Potassium Effervescent Tablet) 40 meq 1X ONCE PEG Last administered on 09/14/19at 08:26; Start 09/14/19 at 07:30; Stop 09/14/19 at 07:32; Status DC Potassium Chloride (Klor-Con) 20 meq TID PO ; Start 09/14/19 at 14:00 Magnesium Sulfate 50 ml @ 25 mls/hr 1X ONCE IV Last administered on 09/14/19at 11:40; Start 09/14/19 at 11:30; Stop 09/14/19 at 13:29 Active Scripts Active Keppra (Levetiracetam) 750 Mg Tablet 1 Tab PO BID 30 Days Reported Vitamin B-12 (Cyanocobalamin (Vitamin B-12)) 1,000 Mcg Tablet 1 Tab PO DAILY 30 Days Venlafaxine Hcl Er (Venlafaxine Hcl) 37.5 Mg Tab.er.24 1 Tab PO DAILY 30 Days Sucralfate 1 Gm Tablet 1 Tab PO QID Simethicone 80 Mg Tab.chew 1 Tab PO TID 6 Days Prednisone 20 Mg Tablet 12.5 Mg PO DAILY Metoprolol Tartrate 50 Mg Tablet 1 Tab PO BID Albuterol Sulfate Conc Neb Soln (Albuterol Sulfate) 2.5 Mg/0.5 Ml Vial.neb 1 Vial NEB PRN Q4HRS PRN Duoneb 0.5-3(2.5) Mg/3 Ml (Albuterol/Ipratropium) 3 Ml Ampul.neb 3 Ml NEB QID Flonase Allergy Relief (Fluticasone Propionate) 9.9 Ml Holden.susp 2 Sprays NS DAILY Calcium (Calcium Carbonate) 500 Mg Tab.chew 1 Tab PO BID 30 Days Vitals/I & O Vital Sign - Last 24 Hours 09/13/19 09/13/19 09/13/19 09/13/19 12:00 12:00 12:30 13:00 Temp 100.0 100.0 Pulse 84 72 75 Resp 29 24 B/P (MAP) 94/51 (65) 97/48 97/48 (64) Pulse Ox 100 100 O2 Delivery Tracheal Collar Trach Collar Tracheal Collar O2 Flow Rate 8.0 09/13/19 09/13/19 09/13/19 09/13/19 14:00 15:00 15:51 16:00 Temp 98.7 98.7 Pulse 72 78 79 Resp 25 23 21 B/P (MAP) 84/44 (57) 105/57 (73) 99/48 (65) Pulse Ox 100 100 100 100 O2 Delivery Tracheal Collar Tracheal Collar Tracheal Collar Tracheal Collar O2 Flow Rate 8.0 09/13/19 09/13/19 09/13/19 09/13/19 16:00 17:00 18:59 19:00 Pulse 91 100 Resp 21 21 B/P (MAP) 144/105 (118) 149/72 (97) Pulse Ox 100 84 100 O2 Delivery Trach Collar Tracheal Collar Tracheal Collar Tracheal Collar O2 Flow Rate 8.0 09/13/19 09/13/19 09/13/19 09/13/19 20:00 20:00 20:45 21:00 Temp 98.4 98.4 Pulse 101 114 Resp 30 27 B/P (MAP) 170/86 (114) 170/96 (120) Pulse Ox 100 100 100 O2 Delivery Trach Collar Tracheal Collar Tracheal Collar Tracheal Collar O2 Flow Rate 10.0 8.0 09/13/19 09/13/19 09/13/19 09/13/19 21:53 21:53 22:00 23:00 Pulse 111 115 83 Resp 35 30 29 B/P (MAP) 170/96 193/93 (126) 136/67 (90) Pulse Ox 100 100 100 O2 Delivery Tracheal Collar Tracheal Collar Tracheal Collar O2 Flow Rate 10.0 09/14/19 09/14/19 09/14/19 09/14/19 00:00 00:00 01:00 02:00 Temp 98.8 98.8 Pulse 88 74 71 Resp 34 29 28 B/P (MAP) 114/58 (76) 127/63 (84) 116/57 (76) Pulse Ox 100 100 100 O2 Delivery Trach Collar Tracheal Collar Tracheal Collar Tracheal Collar O2 Flow Rate 10.0 09/14/19 09/14/19 09/14/19 09/14/19 03:00 04:00 04:00 05:00 Temp 97.2 97.2 Pulse 93 105 106 Resp 25 29 36 B/P (MAP) 139/67 (91) 192/108 (136) 200/104 (136) Pulse Ox 100 100 100 O2 Delivery Tracheal Collar Tracheal Collar Trach Collar Tracheal Collar O2 Flow Rate 10.0 09/14/19 09/14/19 09/14/19 09/14/19 05:53 06:00 06:30 08:00 Pulse 112 112 142 Resp 32 B/P (MAP) 184/86 184/105 (131) 153/68 (96) Pulse Ox 100 O2 Delivery Tracheal Collar Trach Collar O2 Flow Rate 10.0 09/14/19 09/14/19 09/14/19 09/14/19 08:00 08:03 09:00 09:15 Temp 98.6 98.6 Pulse 134 140 138 Resp 27 32 B/P (MAP) 161/88 (112) 163/78 (106) 163/78 Pulse Ox 99 100 98 O2 Delivery Tracheal Collar Tracheal Collar Tracheal Collar O2 Flow Rate 8.0 09/14/19 09/14/19 09:15 10:00 Pulse 138 104 Resp 27 B/P (MAP) 163/78 159/90 (113) Pulse Ox 100 O2 Delivery Tracheal Collar Intake and Output 09/13/19 09/13/19 09/14/19 15:00 23:00 07:00 Intake Total 510 ml 1790.1 ml 1924.6 ml Output Total 1150 ml 1550 ml 1550 ml Balance -640 ml 240.1 ml 374.6 ml Justicifation of Admission Dx: Justifications for Admission: Justification of Admission Dx: N/A LEONEL PABLO MD Sep 14, 2019 11:50
[2019-09-14] MEDS: POTASSIUM CHLORIDE 20 MEQ TABLET.ER. PO SCH ×2 (12:37→21:38)
[2019-09-14 17:02] LABS: CREATININE 1.4 mg/dL (0.6-1.0); GFR 36.9; POTASSIUM 3.7 mmol/L (3.5-5.1)
[2019-09-14 20:05] LABS: BASE EXCESS ABG 12 mmol/L (-3-3); HCO3 ABG 36 mmol/L (21-28); PCO2 ABG 48 mmHg (35-46); PO2 ABG 103 mmHg (65-108); SAT O2 ABG 97 % (92-99)
[2019-09-14 20:35] LABS: FIO2 ABG 33
--- NOTE | 2019-09-14 21:06 | NUR ---
At 1930, patient very agitated and BP in 180s, HR in 150s, breathing 40/minute and extremely diaphoretic. Ativan 0.5 mg, Haldol, and Precedex bolus given. BP rechecked 15 minutes later and was at 112/52 with HR of 112 and breathing better, but patient unresponsive even to deep pain. Pupils still reactive and patient still coughing. ABG obtained and FSBS completed. Patient's ABG and FSBS results were fine and patient afebrile. Another BP taken at 2014 and patient's BP was 41/22 and HR down in 80s. Precedex was turned off, patient was turned, and attempted to stimulate patient again. After 15 minutes patient's BP was beginning to increase but patient started vomiting TF. TF turned off and mouth was suctioned--no aspiration into trach witnessed. At 2099 patient's BP 79/37, no more vomiting noted, HR in 80s/90s. Precedex and TF remain turned off, will keep off for time being. Will continue to monitor. Addendum: 09/14/19 at 2227 by [email or web address] CLIFTON RN RN At 2200 patient localizing to pain, no longer vomiting, and VSS. Precedex restarted at 0.6.
[2019-09-14] MEDS: FAMOTIDINE 20 MG/2 ML VIAL IVP SCH (21:38)
[2019-09-15] VITALS (16 sets, daily range): BP systolic 97–168; BP diastolic 52–109
[2019-09-15] MEDS: DEXMEDETOMIDINE 400 MCG in IV NORMAL SALINE 100ML 96 ML IV PRN ×2 (00:52→05:33)
--- NOTE | 2019-09-15 04:43 | NUR ---
TF was restarted at 2229 and patient tolerated it fine until 414. Patient had 0 residual at 399, but at 414 patient started vomiting TF again. No aspiration noted into trach at the time, but TF turned off and unhooked and patient cleaned up.
[2019-09-15] MEDS: IV NORMAL SALINE 1000ML BAG 1,000 ML IV SCH ×3 (04:50→16:35)
[2019-09-15] MEDS: INSULIN LISPRO 300 UNITS/3 ML VIAL. SQ SCH ×2 (05:41)
[2019-09-15 06:10] LABS: BASO # 0.2 x10^3/uL (0.0-0.2); BASO % 0 % (0-3); EOS # 0.3 x10^3/uL (0.0-0.7); EOS % 1 % (0-3); HEMATOCRIT 23.1 % (36.0-47.0); HEMOGLOBIN 7.5 g/dL (12.0-15.5); LYMPH # 0.8 x10^3/uL (1.0-4.8); LYMPH % 2 % (24-48); MEAN CORPUSCULAR HEMOGLOBIN 28 pg (25-35); MEAN CORPUSCULAR HGB CONC 33 g/dL (31-37); MEAN CORPUSCULAR VOLUME 87 fL (79-100); MONO % 9 % (0-9); NEUT # 38.4 x10^3/uL (1.8-7.7); NEUT % 88 % (31-73); PLATELET COUNT 304 x10^3/uL (140-400); RED BLOOD COUNT 2.66 x10^6/uL (3.50-5.40); RED CELL DISTRIBUTION WIDTH 17.1 % (11.5-14.5)
[2019-09-15 06:22] LABS: CREATININE 1.6 mg/dL (0.6-1.0); GFR 31.6
[2019-09-15 06:29] LABS: CALCIUM 15.1 mg/dL (8.5-10.1)
[2019-09-15 06:36] LABS: WHITE BLOOD COUNT 43.6 x10^3/uL (4.0-11.0)
[2019-09-15 06:38] LABS: % BANDS 8 % (0-9); % EOS 1 % (0-5); % LYMPHS 1 % (24-48); % METAS 3 % (0-0); % MONOS 6 % (0-10); % MYELOS 1 % (0-0); % SEGS 80 % (35-66)
[2019-09-15 06:39] LABS: ANISOCYTOSIS SLIGHT; PLT ESTIMATE ADEQUATE (ADEQUATE)
[2019-09-15 07:10] LABS: CREATININE PTH 1.04 mg/dL (0.57-1.00); PHOSPHORUS PTH 4.6 mg/dL (3.0-4.3); PTH INTACT 8 pg/mL (15-65)
[2019-09-15] MEDS: IPRATRPIUM/ALBUTEROL 0.5/2.5MG 3 ML NEBU. NEB SCH ×2 (08:00→11:20)
--- NOTE | 2019-09-15 08:41 | EEG ---
DATE OF SERVICE: 09/15/2019 EEG NUMBER: [id number]. OBJECTIVE: The patient is a 74-year-old female with right focal seizures. DESCRIPTION: This is a digital study. Electrodes are placed according to the international 10-20 system. Bipolar and referential montages are available. Activation procedures typically include hyperventilation and intermittent photic stimulation. INTERPRETATION: The record consists of bilateral periodic lateralizing epileptiform discharges. There is no reactivity. Hyperventilation is not performed, intermittent photic stimulation is noncontributory, sleep is not achieved. IMPRESSION: This electroencephalogram with the patient in an obtunded state is abnormal because of the presence of bilateral periodic lateralizing epileptiform discharges. Thank you for letting us help with the patient's care. LEONEL PABLO MD DR: AMADEO/[facility] JOB#: [id number] / [id number]
--- NOTE | 2019-09-15 08:44 | PDOC ---
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 Possible posterior reversible encephalopathy New seizure related to the hemorrhage Picture of critical illness neuropathy/myopathy Multiple medical problems and encephalopathy. Medical problems included leukocytosis and renal insufficiency, she also had hypokalemia and hypomagnesemia at admission here Plan I will discuss with after the MRI results are back, BiPLEDs is a poor prognostic sign. Avoid anticoagulation for a week or 2 Increased levetiracetam Levetiracetam for 1-3 months, then taper over 2 weeks or so Subjective None Objective Vital Signs Date Time Temp Pulse Resp B/P (MAP) Pulse Ox O2 Delivery O2 Flow Rate FiO2 09/15/19 06:00 128 26 105/52 (69) 97 Tracheal Collar 09/15/19 04:00 8.0 09/15/19 04:00 98.6 98.6 Intake and Output 09/15/19 07:00 Intake Total 4356.0 ml Output Total 5015 ml Balance -659.0 ml Intake IV Total 3117.0 ml Tube Feeding 1239 ml Output Urine Total 5015 ml PHYSICAL EXAM On trach shield, no response to voice, does not have any verbal output, does not follow commands, moves to minimal painful stimulation PERRL. EOMI. CN: no focal findings. Muscle tone: normal. Muscle strength: 2-3/5, spontaneous movement of the left arm, no spontaneous movement of other extremities DTR: 0-1+ Plantar reflex: flexor Gait: not examined in bed. Sensory exam: Not cooperative. Cerebellar:Not cooperative. Review of Relevant I have reviewed the following items yari (where applicable) has been applied. Labs Laboratory Tests Test 09/13/19 09:30 09/13/19 12:43 09/13/19 18:01 09/14/19 00:09 White Blood Count 16.5 x10^3/uL (4.0-11.0) Red Blood Count 2.59 x10^6/uL (3.50-5.40) Hemoglobin 7.3 g/dL (12.0-15.5) Hematocrit 22.3 % (36.0-47.0) Mean Corpuscular Volume 86 fL (79-100) Mean Corpuscular Hemoglobin 28 pg (25-35) Mean Corpuscular Hemoglobin Concent 33 g/dL (31-37) Red Cell Distribution Width 17.6 % (11.5-14.5) Platelet Count 294 x10^3/uL (140-400) Sodium Level 140 mmol/L (136-145) Potassium Level 3.1 mmol/L (3.5-5.1) Chloride Level 97 mmol/L (98-107) Carbon Dioxide Level 38 mmol/L (21-32) Anion Gap 5 (6-14) Blood Urea Nitrogen 73 mg/dL (7-20) Creatinine 1.6 mg/dL (0.6-1.0) Estimated GFR (Cockcroft-Gault) 31.6 Glucose Level 209 mg/dL (70-99) Calcium Level 12.5 mg/dL (8.5-10.1) Glucose (Fingerstick) 245 mg/dL (70-99) 174 mg/dL (70-99) 157 mg/dL (70-99) Test 09/14/19 06:20 09/14/19 07:30 09/14/19 12:55 09/14/19 16:00 Sodium Level 140 mmol/L (136-145) 140 mmol/L (136-145) Potassium Level 3.0 mmol/L (3.5-5.1) 3.7 mmol/L (3.5-5.1) Chloride Level 97 mmol/L (98-107) 99 mmol/L (98-107) Carbon Dioxide Level 35 mmol/L (21-32) 36 mmol/L (21-32) Anion Gap 8 (6-14) 5 (6-14) Blood Urea Nitrogen 69 mg/dL (7-20) 65 mg/dL (7-20) Creatinine 1.4 mg/dL (0.6-1.0) 1.4 mg/dL (0.6-1.0) Estimated GFR (Cockcroft-Gault) 36.9 36.9 BUN/Creatinine Ratio 49 (6-20) Glucose Level 177 mg/dL (70-99) 180 mg/dL (70-99) Calcium Level 13.5 mg/dL (8.5-10.1) 13.0 mg/dL (8.5-10.1) Total Bilirubin 0.3 mg/dL (0.2-1.0) Aspartate Amino Transf (AST/SGOT) 37 U/L (15-37) Alanine Aminotransferase (ALT/SGPT) 40 U/L (14-59) Alkaline Phosphatase 103 U/L (46-116) Total Protein 6.3 g/dL (6.4-8.2) Albumin 2.6 g/dL (3.4-5.0) Albumin/Globulin Ratio 0.7 (1.0-1.7) Estimated GFR (Non- 53 (>59) Phosphorus Level 4.5 mg/dL (2.6-4.7) Magnesium Level 1.6 mg/dL (1.8-2.4) 2.3 mg/dL (1.8-2.4) EGFR 62 (>59) PTH (Intact) Specimen Description Comment (.) Parathyroid Hormone (Intact) 8 pg/mL (15-65) Calcium (PTH Intact) 12.0 mg/dL (8.7-10.3) Creatinine (PTH Intact) 1.04 mg/dL (0.57-1.00) Phosphorus (PTH Intact) 4.6 mg/dL (3.0-4.3) Glucose (Fingerstick) 191 mg/dL (70-99) Test 09/14/19 18:07 09/14/19 19:50 09/14/19 19:58 09/15/19 00:37 Glucose (Fingerstick) 171 mg/dL (70-99) 161 mg/dL (70-99) 147 mg/dL (70-99) O2 Saturation 97 % (92-99) Arterial Blood pH 7.50 (7.35-7.45) Arterial Blood pCO2 at Patient Temp 48 mmHg (35-46) Arterial Blood pO2 at Patient Temp 103 mmHg (65-108) Arterial Blood HCO3 36 mmol/L (21-28) Arterial Blood Base Excess 12 mmol/L (-3-3) FiO2 33 Test 09/15/19 05:40 09/15/19 05:41 White Blood Count 43.6 x10^3/uL (4.0-11.0) Red Blood Count 2.66 x10^6/uL (3.50-5.40) Hemoglobin 7.5 g/dL (12.0-15.5) Hematocrit 23.1 % (36.0-47.0) Mean Corpuscular Volume 87 fL (79-100) Mean Corpuscular Hemoglobin 28 pg (25-35) Mean Corpuscular Hemoglobin Concent 33 g/dL (31-37) Red Cell Distribution Width 17.1 % (11.5-14.5) Platelet Count 304 x10^3/uL (140-400) Neutrophils (%) (Auto) 88 % (31-73) Lymphocytes (%) (Auto) 2 % (24-48) Monocytes (%) (Auto) 9 % (0-9) Eosinophils (%) (Auto) 1 % (0-3) Basophils (%) (Auto) 0 % (0-3) Neutrophils # (Auto) 38.4 x10^3/uL (1.8-7.7) Lymphocytes # (Auto) 0.8 x10^3/uL (1.0-4.8) Monocytes # (Auto) 4.0 x10^3/uL (0.0-1.1) Eosinophils # (Auto) 0.3 x10^3/uL (0.0-0.7) Basophils # (Auto) 0.2 x10^3/uL (0.0-0.2) Segmented Neutrophils % 80 % (35-66) Band Neutrophils % 8 % (0-9) Lymphocytes % 1 % (24-48) Monocytes % 6 % (0-10) Eosinophils % 1 % (0-5) Metamyelocytes % 3 % (0-0) Myelocytes % 1 % (0-0) Platelet Estimate Adequate (ADEQUATE) Anisocytosis Slight Sodium Level 141 mmol/L (136-145) Potassium Level 3.0 mmol/L (3.5-5.1) Chloride Level 99 mmol/L (98-107) Carbon Dioxide Level 35 mmol/L (21-32) Anion Gap 7 (6-14) Blood Urea Nitrogen 79 mg/dL (7-20) Creatinine 1.6 mg/dL (0.6-1.0) Estimated GFR (Cockcroft-Gault) 31.6 Glucose Level 164 mg/dL (70-99) Calcium Level 15.1 mg/dL (8.5-10.1) Glucose (Fingerstick) 161 mg/dL (70-99) Laboratory Tests Test 09/14/19 12:55 09/14/19 16:00 09/14/19 18:07 09/14/19 19:50 Glucose (Fingerstick) 191 mg/dL (70-99) 171 mg/dL (70-99) 161 mg/dL (70-99) Sodium Level 140 mmol/L (136-145) Potassium Level 3.7 mmol/L (3.5-5.1) Chloride Level 99 mmol/L (98-107) Carbon Dioxide Level 36 mmol/L (21-32) Anion Gap 5 (6-14) Blood Urea Nitrogen 65 mg/dL (7-20) Creatinine 1.4 mg/dL (0.6-1.0) Estimated GFR (Cockcroft-Gault) 36.9 Glucose Level 180 mg/dL (70-99) Calcium Level 13.0 mg/dL (8.5-10.1) Magnesium Level 2.3 mg/dL (1.8-2.4) Test 09/14/19 19:58 09/15/19 00:37 09/15/19 05:40 09/15/19 05:41 O2 Saturation 97 % (92-99) Arterial Blood pH 7.50 (7.35-7.45) Arterial Blood pCO2 at Patient Temp 48 mmHg (35-46) Arterial Blood pO2 at Patient Temp 103 mmHg (65-108) Arterial Blood HCO3 36 mmol/L (21-28) Arterial Blood Base Excess 12 mmol/L (-3-3) FiO2 33 Glucose (Fingerstick) 147 mg/dL (70-99) 161 mg/dL (70-99) White Blood Count 43.6 x10^3/uL (4.0-11.0) Red Blood Count 2.66 x10^6/uL (3.50-5.40) Hemoglobin 7.5 g/dL (12.0-15.5) Hematocrit 23.1 % (36.0-47.0) Mean Corpuscular Volume 87 fL (79-100) Mean Corpuscular Hemoglobin 28 pg (25-35) Mean Corpuscular Hemoglobin Concent 33 g/dL (31-37) Red Cell Distribution Width 17.1 % (11.5-14.5) Platelet Count 304 x10^3/uL (140-400) Neutrophils (%) (Auto) 88 % (31-73) Lymphocytes (%) (Auto) 2 % (24-48) Monocytes (%) (Auto) 9 % (0-9) Eosinophils (%) (Auto) 1 % (0-3) Basophils (%) (Auto) 0 % (0-3) Neutrophils # (Auto) 38.4 x10^3/uL (1.8-7.7) Lymphocytes # (Auto) 0.8 x10^3/uL (1.0-4.8) Monocytes # (Auto) 4.0 x10^3/uL (0.0-1.1) Eosinophils # (Auto) 0.3 x10^3/uL (0.0-0.7) Basophils # (Auto) 0.2 x10^3/uL (0.0-0.2) Segmented Neutrophils % 80 % (35-66) Band Neutrophils % 8 % (0-9) Lymphocytes % 1 % (24-48) Monocytes % 6 % (0-10) Eosinophils % 1 % (0-5) Metamyelocytes % 3 % (0-0) Myelocytes % 1 % (0-0) Platelet Estimate Adequate (ADEQUATE) Anisocytosis Slight Sodium Level 141 mmol/L (136-145) Potassium Level 3.0 mmol/L (3.5-5.1) Chloride Level 99 mmol/L (98-107) Carbon Dioxide Level 35 mmol/L (21-32) Anion Gap 7 (6-14) Blood Urea Nitrogen 79 mg/dL (7-20) Creatinine 1.6 mg/dL (0.6-1.0) Estimated GFR (Cockcroft-Gault) 31.6 Glucose Level 164 mg/dL (70-99) Calcium Level 15.1 mg/dL (8.5-10.1) Medications Current Medications Levetiracetam 1000 mg/Dextrose 110 ml @ 440 mls/hr 1X ONCE IV ; Start 09/10/19 at 12:45; Stop 09/10/19 at 12:59; Status DC Ondansetron HCl (Zofran) 4 mg PRN Q8HRS PRN IV NAUSEA/VOMITING; Start 09/10/19 at 13:00; Stop 09/11/19 at 12:59; Status DC Potassium Chloride/Water 100 ml @ 100 mls/hr Q1H IV Last administered on 09/10/19at 18:33; Start 09/10/19 at 15:00; Stop 09/10/19 at 18:59; Status DC Magnesium Sulfate 50 ml @ 25 mls/hr 1X ONCE IV Last administered on 09/10/19at 14:51; Start 09/10/19 at 15:00; Stop 09/10/19 at 16:59; Status DC Sodium Chloride 1,000 ml @ 100 mls/hr Q10H IV Last administered on 09/11/19at 13:33; Start 09/10/19 at 15:45; Stop 09/11/19 at 16:20; Status DC Levetiracetam 500 mg/Dextrose 105 ml @ 420 mls/hr Q12HR IV Last administered on 09/13/19at 08:52; Start 09/11/19 at 09:00; Stop 09/13/19 at 15:09; Status DC Cyanocobalamin (Vitamin B-12) 1,000 mcg DAILY PO Last administered on 09/14/19at 09:16; Start 09/11/19 at 09:00 Albuterol/ Ipratropium (Duoneb) 3 ml RTQID NEB ; Start 09/10/19 at 17:00; Stop 09/10/19 at 17:35; Status DC Metoprolol Tartrate (Lopressor) 50 mg BID PO Last administered on 09/14/19at 21:38; Start 09/10/19 at 21:00 Prednisone (Prednisone) 12.5 mg DAILY PO Last administered on 09/14/19at 09:15; Start 09/11/19 at 09:00 Simethicone (Gas-X) 80 mg TID PO Last administered on 09/14/19at 21:37; Start 09/10/19 at 21:00 Sucralfate (Carafate) 1 gm QID PO Last administered on 09/14/19at 21:38; Start 09/10/19 at 17:00 Non-Formulary Medication (Albuterol Sulfate (Albuterol Sulfate Conc Neb Soln)) 1 vial PRN Q4HRS PRN NEB SHORTNESS OF BREATH; Start 09/10/19 at 17:00; Status UNV Calcium Carbonate/ Glycine (Tums) 500 mg BID PO Last administered on 09/13/19at 08:55; Start 09/10/19 at 21:00; Stop 09/13/19 at 12:47; Status DC Fluticasone Propionate (Flonase) 2 spray DAILY NS Last administered on 09/14/19at 09:16; Start 09/11/19 at 09:00 Venlafaxine HCl (Effexor Xr) 37.5 mg DAILY PO Last administered on 09/14/19at 09:15; Start 09/11/19 at 09:00 Famotidine (Pepcid Vial) 20 mg QHS IVP Last administered on 09/14/19at 21:38; Start 09/10/19 at 21:00 Nicardipine HCl 50 mg/Sodium Chloride 250 ml @ 25 mls/hr CONT PRN IV SEE I/O RECORD; Start 09/10/19 at 18:00 Albuterol Sulfate (Ventolin Neb Soln) 2.5 mg PRN Q6HRS PRN NEB SHORTNESS OF BREATH; Start 09/10/19 at 17:15 Albuterol/ Ipratropium (Duoneb) 3 ml RTQID NEB Last administered on 09/14/19at 20:23; Start 09/10/19 at 20:00 Pharmacy Consult (C.diff Med Screen By Rx) 1 each 1X ONCE [facility] ; Start 09/10/19 at 18:00; Stop 09/10/19 at 18:01; Status UNV Dexmedetomidine HCl 400 mcg/ Sodium Chloride 100 ml @ 0 mls/hr CONT PRN IV SEE COMMENTS Last administered on 09/12/19at 01:47; Start 09/10/19 at 18:45; Stop 09/12/19 at 10:27; Status DC Sodium Chloride 500 ml @ 500 mls/hr 1X PRN PRN IV SEE COMMENTS; Start 09/10/19 at 18:45 Atropine Sulfate (ATROPINE 0.5mg SYRINGE) 0.5 mg PRN Q5MIN PRN IV SEE COMMENTS; Start 09/10/19 at 18:45 Multivitamins/ Minerals Therapeutic (Centrum Multivit-Mineral Liq) 5 ml DAILY PEG Last administered on 09/13/19at 09:00; Start 09/12/19 at 09:00; Stop 09/13/19 at 12:49; Status DC Insulin Human Lispro (HumaLOG) 0-5 UNITS Q6HRS SQ Last administered on 09/14/19 18:33; Start 09/11/19 at 18:00 Dextrose (Dextrose 50%-Water Syringe) 12.5 gm PRN Q15MIN PRN IV SEE COMMENTS; Start 09/11/19 at 15:30 Fentanyl Citrate (Fentanyl 2ml Vial) 25 mcg PRN Q2HR PRN IVP PAIN Last administered on 09/14/19 18:23; Start 09/11/19 at 23:15 Potassium Bicarbonate (Potassium Effervescent Tablet) 40 meq Q1HR PEG Last administered on 09/12/19 10:00; Start 09/12/19 at 06:00; Stop 09/12/19 at 10:30; Status DC Lorazepam (Ativan Inj) 0.5 mg Q6HRS PRN IVP ANXIETY / AGITATION Last administered on 09/14/19 19:38; Start 09/12/19 at 10:30 Haloperidol Lactate (Haldol Inj) 5 mg PRN Q6HRS PRN IVP AGITATION, 2ND CHOICE Last administered on 09/14/19 19:39; Start 09/12/19 at 13:00 Dexmedetomidine HCl 400 mcg/ Sodium Chloride 100 ml @ 0 mls/hr CONT PRN IV SEE COMMENTS Last administered on 09/15/19 05:33; Start 09/12/19 at 13:45 Acetaminophen (Tylenol) 650 mg PRN Q6HRS PRN PEG MILD PAIN / TEMP > 100.3'F Last administered on 09/13/19at 21:55; Start 09/13/19 at 12:00 Hydralazine HCl (Apresoline Inj) 10 mg PRN Q4HRS PRN IVP ELEVATED BP, SEE COMMENTS Last administered on 09/14/19 17:03; Start 09/13/19 at 12:00 Amlodipine Besylate (Norvasc) 10 mg DAILY PO Last administered on 09/14/19 09:15; Start 09/13/19 at 12:30 Potassium Bicarbonate (Potassium Effervescent Tablet) 20 meq TID PEG Last administered on 09/14/19 09:15; Start 09/13/19 at 14:00; Stop 09/14/19 at 10:55; Status DC Sodium Chloride 1,000 ml @ 100 mls/hr Q10H IV Last administered on 09/15/19at 04:50; Start 09/13/19 at 12:00 Levetiracetam 500 mg/Dextrose 105 ml @ 420 mls/hr 1X STAT IV ; Start 09/13/19 at 12:29; Stop 09/13/19 at 12:33; Status DC Levetiracetam 500 mg/Sodium Chloride 105 ml @ 420 mls/hr 1X STAT IV Last administered on 09/13/19at 12:37; Start 09/13/19 at 12:33; Stop 09/13/19 at 12:43; Status DC Levetiracetam 750 mg/Dextrose 107.5 ml @ 420 mls/hr Q12HR IV Last administered on 09/14/19at 21:00; Start 09/13/19 at 21:00 Lorazepam (Ativan Inj) 1 mg 1X ONCE IVP Last administered on 09/13/19at 11:00; Start 09/13/19 at 11:00; Stop 09/13/19 at 19:11; Status DC Potassium Bicarbonate (Potassium Effervescent Tablet) 40 meq 1X ONCE PEG Last administered on 09/14/19at 08:26; Start 09/14/19 at 07:30; Stop 09/14/19 at 07:32; Status DC Potassium Chloride (Klor-Con) 20 meq TID PO Last administered on 09/14/19at 21:38; Start 09/14/19 at 14:00 Magnesium Sulfate 50 ml @ 25 mls/hr 1X ONCE IV Last administered on 09/14/19at 11:40; Start 09/14/19 at 11:30; Stop 09/14/19 at 13:29; Status DC Magnesium Sulfate 100 ml @ 25 mls/hr 1X ONCE IV ; Start 09/15/19 at 09:00; Stop 09/15/19 at 12:59 Active Scripts Active Keppra (Levetiracetam) 750 Mg Tablet 1 Tab PO BID 30 Days Reported Vitamin B-12 (Cyanocobalamin (Vitamin B-12)) 1,000 Mcg Tablet 1 Tab PO DAILY 30 Days Venlafaxine Hcl Er (Venlafaxine Hcl) 37.5 Mg Tab.er.24 1 Tab PO DAILY 30 Days Sucralfate 1 Gm Tablet 1 Tab PO QID Simethicone 80 Mg Tab.chew 1 Tab PO TID 6 Days Prednisone 20 Mg Tablet 12.5 Mg PO DAILY Metoprolol Tartrate 50 Mg Tablet 1 Tab PO BID Albuterol Sulfate Conc Neb Soln (Albuterol Sulfate) 2.5 Mg/0.5 Ml Vial.neb 1 Vial NEB PRN Q4HRS PRN Duoneb 0.5-3(2.5) Mg/3 Ml (Albuterol/Ipratropium) 3 Ml Ampul.neb 3 Ml NEB QID Flonase Allergy Relief (Fluticasone Propionate) 9.9 Ml [place].susp 2 Sprays NS DAILY Calcium (Calcium Carbonate) 500 Mg Tab.chew 1 Tab PO BID 30 Days Vitals/I & O Vital Sign - Last 24 Hours 09/14/19 09/14/19 09/14/19 09/14/19 09:00 09:15 09:15 10:00 Pulse 140 138 138 104 Resp 32 27 B/P (MAP) 163/78 (106) 163/78 163/78 159/90 (113) Pulse Ox 98 100 O2 Delivery Tracheal Collar Tracheal Collar 09/14/19 09/14/19 09/14/19 09/14/19 11:00 11:48 12:00 12:00 Temp 98.7 98.7 Pulse 123 124 Resp 29 35 B/P (MAP) 191/95 (127) 185/97 (126) Pulse Ox 100 99 100 O2 Delivery Tracheal Collar Tracheal Collar Trach Collar Tracheal Collar O2 Flow Rate 8.0 10.0 09/14/19 09/14/19 09/14/19 09/14/19 13:00 14:00 15:00 16:00 Pulse 125 122 115 Resp 29 31 29 B/P (MAP) 165/92 (116) 175/83 (113) 177/80 (112) Pulse Ox 100 100 100 O2 Delivery Tracheal Collar Tracheal Collar Tracheal Collar Trach Collar O2 Flow Rate 10.0 09/14/19 09/14/19 09/14/19 09/14/19 16:00 16:45 17:00 17:03 Temp 98.8 98.8 Pulse 115 138 123 Resp 23 31 B/P (MAP) 159/80 (106) 153/74 (100) 175/89 Pulse Ox 100 100 100 O2 Delivery Tracheal Collar Tracheal Collar Tracheal Collar O2 Flow Rate 8.0 09/14/19 09/14/19 09/14/19 09/14/19 18:00 18:23 19:00 20:00 Pulse 137 142 Resp 34 27 39 B/P (MAP) 152/69 (96) 182/79 (113) Pulse Ox 100 97 97 O2 Delivery Tracheal Collar Tracheal Collar Tracheal Collar Trach Collar O2 Flow Rate 8.0 09/14/19 09/14/19 09/14/19 09/14/19 20:00 20:21 21:00 21:38 Temp 98.4 98.4 Pulse 100 97 112 Resp 28 29 B/P (MAP) 112/52 (72) 108/49 (68) 129/56 Pulse Ox 99 100 100 O2 Delivery Tracheal Collar Tracheal Collar Tracheal Collar O2 Flow Rate 8.0 09/14/19 09/14/19 09/15/19 09/15/19 22:00 23:00 00:00 00:00 Temp 97.8 97.8 Pulse 116 121 109 Resp 26 23 25 B/P (MAP) 151/79 (103) 170/83 (112) 148/84 (105) Pulse Ox 99 98 98 O2 Delivery Tracheal Collar Tracheal Collar Tracheal Collar Trach Collar O2 Flow Rate 8.0 09/15/19 09/15/19 09/15/19 09/15/19 01:00 02:00 03:00 04:00 Temp 98.6 98.6 Pulse 108 116 112 126 Resp 27 33 29 39 B/P (MAP) 164/79 (107) 168/92 (117) 150/67 (94) 161/109 (126) Pulse Ox 97 95 99 99 O2 Delivery Tracheal Collar Tracheal Collar Tracheal Collar Tracheal Collar 09/15/19 09/15/19 09/15/19 04:00 05:00 06:00 Pulse 121 128 Resp 29 26 B/P (MAP) 103/59 (74) 105/52 (69) Pulse Ox 100 97 O2 Delivery Trach Collar Tracheal Collar Tracheal Collar O2 Flow Rate 8.0 Intake and Output 09/14/19 09/14/19 09/15/19 15:00 23:00 07:00 Intake Total 457.5 ml 1530.5 ml 2368 ml Output Total 2590 ml 1260 ml 1165 ml Balance -2132.5 ml 270.5 ml 1203 ml Justicifation of Admission Dx: Justifications for Admission: Justification of Admission Dx: N/A LEONEL PABLO MD Sep 15, 2019 08:44
[2019-09-15] MEDS ORDERED: MAGNESIUM SULFATE 4GM 100 ML IV ONE (09:00)
[2019-09-15] MEDS: amLODIPine BESYLATE 10 MG TABLET PO SCH (09:00)
--- NOTE | 2019-09-15 09:14 | PDOC ---
SUBJECTIVE ROS Seizures+, Fever , plan for MRI later today OBJECTIVE Vital Signs Vital Signs Date Time Temp Pulse Resp B/P (MAP) Pulse Ox O2 Delivery O2 Flow Rate FiO2 09/15/19 06:00 128 26 105/52 (69) 97 Tracheal Collar 09/15/19 04:00 8.0 09/15/19 04:00 98.6 98.6 I & 0 Intake and Output 09/15/19 07:00 Intake Total 4356.0 ml Output Total 5015 ml Balance -659.0 ml Intake IV Total 3117.0 ml Tube Feeding 1239 ml Output Urine Total 5015 ml PHYSICAL EXAM Physical Exam GENERAL: no response to voice, does not follow commands HEENT: OM moist NECK: Supple. Trach in place. LUNGS: With diminished breath sounds. CARDIOVASCULAR: S1S2 ABDOMEN: Soft.,PEG in place EXTREMITIES: ecchymosis and trace edema. Sandoval + DIAGNOSIS/ASSESSMENT Assessment & Plan ALEX - stable renal function BUN improved, stable , Good UOP HyperCalcemia - IVF Ca supplements dced , PTH low Recommend Calcitonin SQ, gamble for paraproteinemia, Consult Oncology HypoKalemia- Replace Acute hypoxic respiratory failure secondary to pneumonia and parapneumonic effusion/early empyema, requiring mechanical ventilation and subsequent failure to wean and eventually requiring tracheostomy. Seizure related to acute parenchymal hemorrhage within the left parietal vertex with surrounding edema. Neurology following Encephalopathy secondary to parenchymal hemorrhage-- no surgical intervention Chronic obstructive pulmonary disease from secondhand tobacco exposure. COMMENT/RELEVANT DATA Meds Current Medications Medications (Trade) Dose Ordered Sig/Holli Start Time Stop Time Status Last Admin Dose Admin Acetaminophen (Tylenol) 650 mg PRN Q6HRS PRN 09/13/19 12:00 09/13/19 21:55 650 MG Albuterol Sulfate (Ventolin Neb Soln) 2.5 mg PRN Q6HRS PRN 09/10/19 17:15 Albuterol/ Ipratropium (Duoneb) 3 ml RTQID 09/10/19 20:00 09/14/19 20:23 3 ML Amlodipine Besylate (Norvasc) 10 mg DAILY 09/13/19 12:30 09/14/19 09:15 10 MG Atropine Sulfate (ATROPINE 0.5mg SYRINGE) 0.5 mg PRN Q5MIN PRN 09/10/19 18:45 Calcium Carbonate/ Glycine (Tums) 500 mg BID 09/10/19 21:00 09/13/19 12:47 DC 09/13/19 08:55 500 MG Cyanocobalamin (Vitamin B-12) 1,000 mcg DAILY 09/11/19 09:00 09/14/19 09:16 1,000 MCG Dexmedetomidine HCl 400 mcg/ Sodium Chloride 100 ml @ 0 mls/hr CONT PRN 09/12/19 13:45 09/15/19 05:33 14.5 MLS/HR Dextrose (Dextrose 50%-Water Syringe) 12.5 gm PRN Q15MIN PRN 09/11/19 15:30 Famotidine (Pepcid Vial) 20 mg QHS 09/10/19 21:00 09/14/19 21:38 20 MG Fentanyl Citrate (Fentanyl 2ml Vial) 25 mcg PRN Q2HR PRN 09/11/19 23:15 09/14/19 18:23 25 MCG Fluticasone Propionate (Flonase) 2 spray DAILY 09/11/19 09:00 09/14/19 09:16 2 SPRAY Haloperidol Lactate (Haldol Inj) 5 mg PRN Q6HRS PRN 09/12/19 13:00 09/14/19 19:39 5 MG Hydralazine HCl (Apresoline Inj) 10 mg PRN Q4HRS PRN 09/13/19 12:00 09/14/19 17:03 10 MG Insulin Human Lispro (HumaLOG) 0-5 UNITS Q6HRS 09/11/19 18:00 09/14/19 18:33 2 UNITS Levetiracetam 1000 mg/Dextrose 110 ml @ 440 mls/hr 1X ONCE 09/10/19 12:45 09/10/19 12:59 DC Levetiracetam 500 mg/Dextrose 105 ml @ 420 mls/hr 1X STAT 09/13/19 12:29 09/13/19 12:33 DC Levetiracetam 500 mg/Sodium Chloride 105 ml @ 420 mls/hr 1X STAT 09/13/19 12:33 09/13/19 12:43 DC 09/13/19 12:37 420 MLS/HR Levetiracetam 750 mg/Dextrose 107.5 ml @ 420 mls/hr Q12HR 09/13/19 21:00 09/14/19 21:00 420 MLS/HR Lorazepam (Ativan Inj) 1 mg 1X ONCE 09/13/19 11:00 09/13/19 19:11 DC 09/13/19 11:00 1 MG Magnesium Sulfate 100 ml @ 25 mls/hr 1X ONCE 09/15/19 09:00 09/15/19 12:59 Metoprolol Tartrate (Lopressor) 50 mg BID 09/10/19 21:00 09/14/19 21:38 50 MG Multivitamins/ Minerals Therapeutic (Centrum Multivit-Mineral Liq) 5 ml DAILY 09/12/19 09:00 09/13/19 12:49 DC 09/13/19 09:00 5 ML Nicardipine HCl 50 mg/Sodium Chloride 250 ml @ 25 mls/hr CONT PRN 09/10/19 18:00 Non-Formulary Medication (Albuterol Sulfate (Albuterol Sulfate Conc Neb Soln)) 1 vial PRN Q4HRS PRN 09/10/19 17:00 UNV Ondansetron HCl (Zofran) 4 mg PRN Q8HRS PRN 09/10/19 13:00 09/11/19 12:59 DC Pharmacy Consult (C.diff Med Screen By Rx) 1 each 1X ONCE 09/10/19 18:00 09/10/19 18:01 UNV Potassium Bicarbonate (Potassium Effervescent Tablet) 40 meq 1X ONCE 09/14/19 07:30 09/14/19 07:32 DC 09/14/19 08:26 40 MEQ Potassium Chloride/Water 100 ml @ 100 mls/hr Q1H 09/10/19 15:00 09/10/19 18:59 DC 09/10/19 18:33 100 MLS/HR Potassium Chloride (Klor-Con) 20 meq TID 09/14/19 14:00 09/14/19 21:38 20 MEQ Prednisone (Prednisone) 12.5 mg DAILY 09/11/19 09:00 09/14/19 09:15 12.5 MG Simethicone (Gas-X) 80 mg TID 09/10/19 21:00 09/14/19 21:37 80 MG Sodium Chloride 1,000 ml @ 100 mls/hr Q10H 09/13/19 12:00 09/15/19 04:50 100 MLS/HR Sucralfate (Carafate) 1 gm QID 09/10/19 17:00 09/14/19 21:38 1 GM Venlafaxine HCl (Effexor Xr) 37.5 mg DAILY 09/11/19 09:00 09/14/19 09:15 37.5 MG Lab Laboratory Tests Test 09/14/19 12:55 09/14/19 16:00 09/14/19 18:07 09/14/19 19:50 Glucose (Fingerstick) 191 mg/dL (70-99) 171 mg/dL (70-99) 161 mg/dL (70-99) Sodium Level 140 mmol/L (136-145) Potassium Level 3.7 mmol/L (3.5-5.1) Chloride Level 99 mmol/L (98-107) Carbon Dioxide Level 36 mmol/L (21-32) Anion Gap 5 (6-14) Blood Urea Nitrogen 65 mg/dL (7-20) Creatinine 1.4 mg/dL (0.6-1.0) Estimated GFR (Cockcroft-Gault) 36.9 Glucose Level 180 mg/dL (70-99) Calcium Level 13.0 mg/dL (8.5-10.1) Magnesium Level 2.3 mg/dL (1.8-2.4) Test 09/14/19 19:58 09/15/19 00:37 09/15/19 05:40 09/15/19 05:41 O2 Saturation 97 % (92-99) Arterial Blood pH 7.50 (7.35-7.45) Arterial Blood pCO2 at Patient Temp 48 mmHg (35-46) Arterial Blood pO2 at Patient Temp 103 mmHg (65-108) Arterial Blood HCO3 36 mmol/L (21-28) Arterial Blood Base Excess 12 mmol/L (-3-3) FiO2 33 Glucose (Fingerstick) 147 mg/dL (70-99) 161 mg/dL (70-99) White Blood Count 43.6 x10^3/uL (4.0-11.0) Red Blood Count 2.66 x10^6/uL (3.50-5.40) Hemoglobin 7.5 g/dL (12.0-15.5) Hematocrit 23.1 % (36.0-47.0) Mean Corpuscular Volume 87 fL (79-100) Mean Corpuscular Hemoglobin 28 pg (25-35) Mean Corpuscular Hemoglobin Concent 33 g/dL (31-37) Red Cell Distribution Width 17.1 % (11.5-14.5) Platelet Count 304 x10^3/uL (140-400) Neutrophils (%) (Auto) 88 % (31-73) Lymphocytes (%) (Auto) 2 % (24-48) Monocytes (%) (Auto) 9 % (0-9) Eosinophils (%) (Auto) 1 % (0-3) Basophils (%) (Auto) 0 % (0-3) Neutrophils # (Auto) 38.4 x10^3/uL (1.8-7.7) Lymphocytes # (Auto) 0.8 x10^3/uL (1.0-4.8) Monocytes # (Auto) 4.0 x10^3/uL (0.0-1.1) Eosinophils # (Auto) 0.3 x10^3/uL (0.0-0.7) Basophils # (Auto) 0.2 x10^3/uL (0.0-0.2) Segmented Neutrophils % 80 % (35-66) Band Neutrophils % 8 % (0-9) Lymphocytes % 1 % (24-48) Monocytes % 6 % (0-10) Eosinophils % 1 % (0-5) Metamyelocytes % 3 % (0-0) Myelocytes % 1 % (0-0) Platelet Estimate Adequate (ADEQUATE) Anisocytosis Slight Sodium Level 141 mmol/L (136-145) Potassium Level 3.0 mmol/L (3.5-5.1) Chloride Level 99 mmol/L (98-107) Carbon Dioxide Level 35 mmol/L (21-32) Anion Gap 7 (6-14) Blood Urea Nitrogen 79 mg/dL (7-20) Creatinine 1.6 mg/dL (0.6-1.0) Estimated GFR (Cockcroft-Gault) 31.6 Glucose Level 164 mg/dL (70-99) Calcium Level 15.1 mg/dL (8.5-10.1) Results All relevant outside records, renal labs, imaging studies, telemetry/EKG's were reviewed. Justicifation of Admission Dx: Justifications for Admission: Justification of Admission Dx: N/A JOHAN GALLEGO MD Sep 15, 2019 09:14
[2019-09-15] MEDS ORDERED: PIP/TAZO PER PHARMACY MC PRN (10:00)
--- NOTE | 2019-09-15 10:06 | NUR ---
SS following up with discharge planning. SS reviewed pt chart and discussed with pt RN. Pt did not discharge to [facility] over the weekend. Per pt RN, pt had seizure activity. Pt had EEG and Dr. Hough consulted. SS phoned and faxed clinical updates to [facility], ; fax [phone]. Med list on the chart. SS will continue to follow for discharge planning.
[2019-09-15] MEDS ORDERED: CALCITONIN,SALMON 400 UNIT/2 ML VIAL. SQ SCH (10:15)
--- NOTE | 2019-09-15 10:41 | PDOC ---
Infectious Disease Note Vital Sign Vital Signs Vital Signs Date Time Temp Pulse Resp B/P (MAP) Pulse Ox O2 Delivery O2 Flow Rate FiO2 09/15/19 06:00 128 26 105/52 (69) 97 Tracheal Collar 09/15/19 04:00 8.0 09/15/19 04:00 98.6 98.6 Labs Lab Laboratory Tests Test 09/14/19 12:55 09/14/19 16:00 09/14/19 18:07 09/14/19 19:50 Glucose (Fingerstick) 191 mg/dL (70-99) 171 mg/dL (70-99) 161 mg/dL (70-99) Sodium Level 140 mmol/L (136-145) Potassium Level 3.7 mmol/L (3.5-5.1) Chloride Level 99 mmol/L (98-107) Carbon Dioxide Level 36 mmol/L (21-32) Anion Gap 5 (6-14) Blood Urea Nitrogen 65 mg/dL (7-20) Creatinine 1.4 mg/dL (0.6-1.0) Estimated GFR (Cockcroft-Gault) 36.9 Glucose Level 180 mg/dL (70-99) Calcium Level 13.0 mg/dL (8.5-10.1) Magnesium Level 2.3 mg/dL (1.8-2.4) Test 09/14/19 19:58 09/15/19 00:37 09/15/19 05:40 09/15/19 05:41 O2 Saturation 97 % (92-99) Arterial Blood pH 7.50 (7.35-7.45) Arterial Blood pCO2 at Patient Temp 48 mmHg (35-46) Arterial Blood pO2 at Patient Temp 103 mmHg (65-108) Arterial Blood HCO3 36 mmol/L (21-28) Arterial Blood Base Excess 12 mmol/L (-3-3) FiO2 33 Glucose (Fingerstick) 147 mg/dL (70-99) 161 mg/dL (70-99) White Blood Count 43.6 x10^3/uL (4.0-11.0) Red Blood Count 2.66 x10^6/uL (3.50-5.40) Hemoglobin 7.5 g/dL (12.0-15.5) Hematocrit 23.1 % (36.0-47.0) Mean Corpuscular Volume 87 fL (79-100) Mean Corpuscular Hemoglobin 28 pg (25-35) Mean Corpuscular Hemoglobin Concent 33 g/dL (31-37) Red Cell Distribution Width 17.1 % (11.5-14.5) Platelet Count 304 x10^3/uL (140-400) Neutrophils (%) (Auto) 88 % (31-73) Lymphocytes (%) (Auto) 2 % (24-48) Monocytes (%) (Auto) 9 % (0-9) Eosinophils (%) (Auto) 1 % (0-3) Basophils (%) (Auto) 0 % (0-3) Neutrophils # (Auto) 38.4 x10^3/uL (1.8-7.7) Lymphocytes # (Auto) 0.8 x10^3/uL (1.0-4.8) Monocytes # (Auto) 4.0 x10^3/uL (0.0-1.1) Eosinophils # (Auto) 0.3 x10^3/uL (0.0-0.7) Basophils # (Auto) 0.2 x10^3/uL (0.0-0.2) Segmented Neutrophils % 80 % (35-66) Band Neutrophils % 8 % (0-9) Lymphocytes % 1 % (24-48) Monocytes % 6 % (0-10) Eosinophils % 1 % (0-5) Metamyelocytes % 3 % (0-0) Myelocytes % 1 % (0-0) Platelet Estimate Adequate (ADEQUATE) Anisocytosis Slight Sodium Level 141 mmol/L (136-145) Potassium Level 3.0 mmol/L (3.5-5.1) Chloride Level 99 mmol/L (98-107) Carbon Dioxide Level 35 mmol/L (21-32) Anion Gap 7 (6-14) Blood Urea Nitrogen 79 mg/dL (7-20) Creatinine 1.6 mg/dL (0.6-1.0) Estimated GFR (Cockcroft-Gault) 31.6 Glucose Level 164 mg/dL (70-99) Calcium Level 15.1 mg/dL (8.5-10.1) Objective Assessment Leukocytosis Immunosuppressed on Steroids H/o MSSA per chart H/o Roselia in urine before and + fungitel ALEX hypercalcemia H/p Bronchiectasis H/o loculated pleural effusion Bilateral periodic lateralizing epileptiform discharges (BiPLEDs) Focal left-sided seizure activity 09/12, which resolved after I gave an extra dose of levetiracetam Posterior left frontal lobe subtle findings for intraparenchymal hemorrhage, not significantly changed between [address] scans. Possible posterior reversible encephalopathy New seizure related to the hemorrhage Encephalopathy. S/p Trach and PEG Plan Plan of Care Repeat WBC Check cults Check Procalcitonin but could be falsely Elevated with ALEX CXR possible aspiration Zosyn (on Keppra)/Micafungin and add Zyvox with h/o MSSA recently and is at risk for MRSA VRE Add po Vanc with WBC rapid increase CHekc C-diff if WBC truley elevated F/u labs Critically ill 35 mins D/w /nursing and Dr. Barros # [id number] TITI ABBOTT MD Sep 15, 2019 10:41
[2019-09-15] MEDS ORDERED: MICAFUNGIN 100 MG in IV DEXTROSE 5% 100ML 100 ML IV SCH (11:00)
[2019-09-15] MEDS: CYANOCOBALAMIN (VITAMIN B-12) 1,000 MCG TABLET. PO SCH (11:27)
[2019-09-15] MEDS: METOPROLOL TART IMMED RELEASE 50 MG TABLET. PO SCH (11:29)
[2019-09-15] MEDS: SUCRALFATE 1 GM TABLET. PO SCH (11:29)
[2019-09-15] MEDS: VENLAFAXINE XR 37.5 MG CAP.ER.24H. PO SCH (11:31)
[2019-09-15] MEDS: predniSONE 5 MG TABLET PO SCH (11:39)
[2019-09-15] MEDS ORDERED: POTASSIUM CHLORIDE 20 MEQ TABLET.ER. PO SCH (12:00)
[2019-09-15] MEDS ORDERED: PIPERACILLIN/TAZOBACTAM 3.375 GM in IV NORMAL SALINE 50ML 50 ML IV SCH (12:00)
--- NOTE | 2019-09-15 12:10 | PN ---
DATE: 09/15/2019 SUBJECTIVE: The patient is resting slightly propped up in bed, clearly in no apparent respiratory distress. She continued to be on tracheal shield. Nursing staff stated that she had generally uneventful night. LABORATORY DATA: Her lab work this morning showed that her serum calcium has dramatically risen to 15.1. She continued to be hypokalemic on serum sodium. Her white cell count has dramatically risen to 43,600, hemoglobin 7.1, hematocrit 23 with a platelet count 304,000 with a manual differential showed 80% polymorphs, 8% bands, 1% lymphocytes, and 6% monocytes. There are also 3% metamyelocytes and 1% myelocytes. Her intact PTH was only 8 in the face of a calcium of 12, ruling out the possibility of hyperparathyroidism. We have discontinued her calcium and multivitamin. PHYSICAL EXAMINATION: GENERAL: When I examined her, she was pale, no jaundice, cyanosis or thyromegaly. No jugular venous distention. No limb edema. VITAL SIGNS: Her heart rate was 128, blood pressure was 105/52, temperature was 98.6, respiratory rate was 26, and oxygen saturation was 97% on tracheal shield. HEAD, EYES, EARS, NOSE AND THROAT: Showed normocephalic, atraumatic. NECK: Supple with tracheostomy tube in place. HEART: Showed normal first and second sounds. No gallop, rub or murmur. CHEST: Clear to auscultation. No crepitation or rhonchi. ABDOMEN: Distended, soft, nontender. No guarding or rigidity. No organomegaly. All hernial orifices intact. Bowel sounds normal. She has a gastrostomy tube in place. NEUROLOGIC: She is sedated. She is on Precedex, Ativan as well as fentanyl. All her cranial nerves seem to be grossly intact. She moves extremities spontaneously, although she is mostly bedbound. Her intake was 4200, output was 4250. As of this morning, her serum sodium was 141, potassium 3, chloride was 99, bicarbonate 35, anion gap of 7, BUN 79, creatinine 1.6, estimated GFR was 31 mL per minute. Her glucose 164, calcium was 15.1, corrected for serum albumin is probably much higher than that. Her white cell count is 43,600, hemoglobin 7.5, hematocrit 23, MCV 87, and platelet count 304,000. ASSESSMENT AND PLAN: New onset of seizures for which she is now on Keppra 750 mg IV twice a day. She has posterior left frontal lobe subtle finding of intraparenchymal hemorrhage and no significant change between [address] scans, possible posterior reversible encephalopathy. The patient has severe hypercalcemia with normal intact PTH of 8 indicating that she probably has some form of hematological malignancy as her white cell count has dramatically risen, so we will consult Dr. Sandhu and their oncologist to assist with the management. MANUELITO CEDILLO MD DR: DARRICK/south JOB#: [id number] / [id number]
--- NOTE | 2019-09-15 12:55 | RAD ---
CHEST AP ONLY History: Leukocytosis Comparison: September 11, 2019 Findings: Single view of the chest is submitted. There is again tracheostomy and right upper extremity PICC. There is no dependent pleural fluid or pneumothorax. There is again some linear opacity near the left lung base which may be fibrotic change or atelectasis, similar in appearance. There is other interstitial opacity bilaterally, somewhat less apparent on the right. There is no new lobar infiltrate. Impression: 1. There is no new lobar infiltrate. There is linear atelectasis or fibrotic change at the left lung base, interstitial opacity somewhat less prominent. Electronically signed by: Clint Joseph MD (09/15/2019 12:52 PM) [id number]
[2019-09-15] MEDS ORDERED: VANCOMYCIN 125 MG/2.5 ML ORAL SOLUTION. PO SCH (13:00)
--- NOTE | 2019-09-15 13:01 | RAD ---
EXAMINATION: Magnetic resonance imaging (MRI) of the brain and brainstem without contrast 09/15/2019 8:00 AM HISTORY: Left frontal hemorrhage, right focal seizures TECHNIQUE: Multiplanar multi-weighted MRI of the brain and brainstem was performed without intravenous contrast using the general brain protocol. COMPARISON: None available. FINDINGS: Evaluation degraded by motion. The scalp and calvarium are normal. The superior sagittal sinus demonstrates normal venous flow. The corpus callosum is normal in shape and signal intensity. The posterior fossa is unremarkable. The pituitary and sella are normal. Craniocervical junction appears intact. Diffusion weighted images reveal no hyperintensities to suggest acute cerebral infarction. Ventricles, sulci and basal cisterns are prominent compatible with mild generalized cerebral volume loss. Multifocal areas of cerebral vasogenic edema identified involving the right superior frontal gyrus, posterior left frontal lobe, left parietal lobe and bioccipital lobes. These areas are associated with scattered subtle susceptibility artifact suggestive of underlying hemorrhagic component. The largest is identified within the left parietal lobe medially with a rim of hemosiderin measuring up to 1.8 cm corresponding to the area of high density on head CT. Punctate area of susceptibility artifact is identified in the right lateral thalamus or posterior limb internal capsule without a significant amount of vasogenic edema. There is no midline shift. Sinus decompressive postsurgical changes are identified with mild mucosal thickening. Bilateral mastoid effusions are present. The orbits appear normal with exception of bilateral lens replacement. Normal flow voids are demonstrated in the carotid arteries and basilar artery. IMPRESSION: Evaluation degraded by motion. 1. No evidence for acute or subacute ischemia. 2. Multifocal areas of vasogenic edema are present suspicious for underlying metastatic disease. Evaluation is limited without intravenous contrast. There is suspicion of a hemorrhagic component with associated susceptibility artifact, the most prominent of which is identified in the left parietal lobe corresponding to the area of high attenuation on recent head CT. There is no midline shift or mass effect. Differential consideration would include posterior reversible encephalopathy syndrome, although hemorrhage is atypical. Hemorrhagic component appears chronic with low T2 signal and intermediate T1 signal. Remote multifocal infarcts could have similar appearance, although involvement is centered within the underlying white matter. Postcontrast enhanced imaging may be of benefit as a leukoencephalopathy could have similar appearance (progressive multifocal leukoencephalopathy). 3. Bilateral mastoid effusions. FOR INTERNAL CODING PURPOSES Critical result: Findings discussed with patient's nurse Kelly at 09/15/2019 12:49 PM. RESULT CODE: (C) Electronically signed by: Greer Balderas MD (09/15/2019 12:58 PM) [facility]
[2019-09-15 13:14] LABS: BILIRUBIN,URINE NEGATIVE (NEG); CLARITY,URINE CLEAR; COLOR,URINE YELLOW; NITRITE,URINE NEGATIVE (NEG); PROTEIN,URINE 30 mg/dL (NEG-TRACE); UROBILINOGEN,URINE 0.2 mg/dL (0.2 mg/dL)
--- NOTE | 2019-09-15 13:18 | CONS ---
DATE OF CONSULTATION: INFECTIOUS DISEASE CONSULTATION LOCATION: The patient is room ICU A. REQUESTING PHYSICIAN: Radha Peña MD REASON FOR CONSULTATION: Febrile status. HISTORY OF PRESENT ILLNESS: The patient is a 74-year-old female who was admitted to [facility] on 08/11/2019 secondary to pleuritic-type pain per her and pleural effusion. No shortness of air. She was found to have pleural effusion with moderate consolidation in the inferior left upper lobe, left lower lobe and some adjacent ground glass patchy alveolar apical infiltrates. Subsequently, she was intubated, was diagnosed with community-acquired pneumonia, left lower lung culture turned positive for MSSA. She underwent a chest tube placement with pleural effusion and did receive some tPA as well as dornase according to the note. She had acute kidney injury, thought to be secondary to sepsis, was reported to have some yeast in her urine and a positive Fungitell test. Subsequently, she underwent tracheostomy and PEG tube placement and was transferred to [facility]. Of note, she does take chronic steroids. She then apparently had developed a seizure over at [facility] and was transferred to [facility] on 09/10/2019. She had a white count of 20,000. Her creatinine of 1.9. She had normal liver function study tests. A chest x-ray was obtained, showed some interstitial opacities, greater on the right, of uncertain chronicity could be due to interstitial infiltrate or edema. Also had a linear opacity bilaterally. A CT scan of the head was also performed. There is an area showing subtle hyperdensity in the posterior left frontal lobe near the vertex, suspicious for acute intraparenchymal hemorrhage and some subtle subcortical white matter edema in the occipital lobes also suspected, potentially reflection of reversible encephalopathy. She has since been placed on anti-seizure medications. There is concern for potential some possible posterior reversible encephalopathy. Today, her white blood cell count increased to 43.6. She has 8% bands. Her calcium was also increased to 15.1. Because of the increasing white blood cell count, I have been consulted. Currently, the patient is unresponsive but her is present. PAST MEDICAL HISTORY: Positive for COPD with bronchiectasis, MSSA infection, chronic sinusitis, acquired hypothyroidism, osteopenia, degenerative disk disease, gastroesophageal reflux disease, hypercholesterolemia, diverticulitis, history of a left Achilles rupture, history of thyrotoxicosis with diffuse goiter and Graves' disease, history of MSSA pneumonia, history of the above-mentioned pleural effusions, reported history of MRSA colonization, history of abdominal perforation and abscess. PAST SURGICAL HISTORY: Positive for Achilles tendon repair, bronchiectomy, , cyst removed from her buttocks, bilateral cataract extractions, intraocular lens implants, foot surgery, hysterectomy, right total knee arthroplasty, radiofrequency in the low right lumbar area, tracheostomy chest tube placement, PEG tube placement. REVIEW OF SYSTEMS: Unobtainable. ALLERGIES: No known drug allergies. SOCIAL HISTORY: She is listed as a nonsmoker. She is . Her is with her.. FAMILY HISTORY: Father had esophageal cancer. Brother had lung cancer, heart attacks, history of asthma, kidney cancer, diabetes, hypothyroidism, migraines, history of Parkinson's. CURRENT MEDICATIONS: Include Keppra, nicardipine drip, Precedex, Tylenol, Ventolin, Norvasc, B12, Pepcid, fentanyl, ____, insulin, Ativan, metoprolol, prednisone 12.5, Carafate, Effexor XR. PHYSICAL EXAMINATION: VITAL SIGNS: She is afebrile, temperature 98.6, pulse 128, respirations 26, blood pressure 105/52, satting 97% on trach collar. CONSTITUTIONAL: She is nonresponsive. She does move her head. HEENT: Her pupils are status post cataract surgery. She has normal conjunctivae. Oral cavity: Pharynx was dry. Trach without complications. NECK: Supple. LUNGS: Without wheeze, decreased in the bases. HEART: S1, S2, mild tachycardic. ABDOMEN: Soft, no guarding. PEG tube in place. GENITOURINARY: Sandoval is in place with clear urine. She has a rectal tube in place. EXTREMITIES: Without clubbing or cyanosis. No gross edema. SKIN: Without signs of generalized rash. PICC line without sign of any complications. NEUROLOGIC: She is unresponsive. LABORATORY DATA: White count 43.6, hemoglobin 7.5, platelets of 304, segs are 80, bands were 8. Creatinine 1.6, calcium 15.1, glucose is 164. She had normal liver function study tests. RADIOLOGY: Reviewed in history of present illness. IMPRESSION: 1. Leukocytosis. 2. Immunosuppression, on steroids. 3. History of methicillin-susceptible Staphylococcus aureus per chart. 4. History of Roselia in the urine before and positive Fungitell. 5. Acute kidney injury. 6. Hypercalcemia. 7. Bronchiectasis. 8. History of loculated pleural effusion. 9. Bilateral periodic lateralizing epileptiform discharge. 10. Focal left seizure activity 09/13/2019, resolved after Keppra. 11. Posterior left frontal lobe with subtle findings of her intraparenchymal hemorrhage. Reportedly, not significant change between two head CT scans. 12. Possible posterior reversible encephalopathy. 13. New seizures related to hemorrhage. 14. Encephalopathy. 15. Status post tracheostomy and percutaneous endoscopic gastrostomy. RECOMMENDATIONS: We will repeat her white blood cell count. Obtain cultures including blood, urine and sputum. We check a procalcitonin, but could be falsely elevated with acute kidney injury. Obtain a chest x-ray with possible aspiration. We will begin Zosyn. Currently on Keppra. Will avoid carbapenems and cefepime that could also induced some mental status change. We will add micafungin, avoiding the azole, some potential interactions. We will add Zyvox for the history of MSSA recently, but she could is at risk for MRSA as well as VRE. Add p.o. vancomycin with a rapid increase her white cell count per her PEG tube. She has been on antibiotics and is at risk for C. diff. We will check C. diff. If WBC is truly elevated, we will follow up labs. She is critically ill. I spent 35 minutes critical care time. This was discussed with . I discussed with nursing. Discussed with Dr. Ibarra. Reviewed [facility] records as well. TITI ABBOTT MD DR: BHARAT/south JOB#: [id number] / [id number]
[2019-09-15 13:23] LABS: BACTERIA,URINE 0 /HPF (0-FEW); HYALINE CASTS, URINE OCCASIONAL /HPF; WBC,URINE OCC /HPF (0-4)
--- NOTE | 2019-09-15 14:05 | PDOC ---
PULMONARY PROGRESS NOTES Subjective on ts, precedex, doesnt follow my commands, ca 13.5 remains on TS fio2 33%, small trach secretion Vitals Vital Signs Date Time Temp Pulse Resp B/P (MAP) Pulse Ox O2 Delivery O2 Flow Rate FiO2 09/15/19 11:29 130 137/80 09/15/19 11:28 100 Tracheal Collar 8.0 09/15/19 11:00 29 09/15/19 08:00 102.0 102.0 Comments unable to obtain 2/2 current mental state General: Lethargic HEENT: Other (nc at perrl nose clear neck trach site ok no lad no thyromegaly) Lungs: Other (decrease bs) Cardiovascular: S1, S2 Abdomen: Soft, Non-tender, Other (no mass) Extremities: Other (1+edema) Skin: Warm Labs Laboratory Tests Test 09/13/19 18:01 09/14/19 00:09 09/14/19 06:20 09/14/19 07:30 Glucose (Fingerstick) 174 mg/dL (70-99) 157 mg/dL (70-99) Sodium Level 140 mmol/L (136-145) Potassium Level 3.0 mmol/L (3.5-5.1) Chloride Level 97 mmol/L (98-107) Carbon Dioxide Level 35 mmol/L (21-32) Anion Gap 8 (6-14) Blood Urea Nitrogen 69 mg/dL (7-20) Creatinine 1.4 mg/dL (0.6-1.0) Estimated GFR (Cockcroft-Gault) 36.9 BUN/Creatinine Ratio 49 (6-20) Glucose Level 177 mg/dL (70-99) Calcium Level 13.5 mg/dL (8.5-10.1) Total Bilirubin 0.3 mg/dL (0.2-1.0) Aspartate Amino Transf (AST/SGOT) 37 U/L (15-37) Alanine Aminotransferase (ALT/SGPT) 40 U/L (14-59) Alkaline Phosphatase 103 U/L (46-116) Total Protein 6.3 g/dL (6.4-8.2) Albumin 2.6 g/dL (3.4-5.0) Albumin/Globulin Ratio 0.7 (1.0-1.7) Estimated GFR (Non- 53 (>59) Phosphorus Level 4.5 mg/dL (2.6-4.7) Magnesium Level 1.6 mg/dL (1.8-2.4) EGFR 62 (>59) PTH (Intact) Specimen Description Comment (.) Parathyroid Hormone (Intact) 8 pg/mL (15-65) Calcium (PTH Intact) 12.0 mg/dL (8.7-10.3) Creatinine (PTH Intact) 1.04 mg/dL (0.57-1.00) Phosphorus (PTH Intact) 4.6 mg/dL (3.0-4.3) Test 09/14/19 12:55 09/14/19 16:00 09/14/19 18:07 09/14/19 19:50 Glucose (Fingerstick) 191 mg/dL (70-99) 171 mg/dL (70-99) 161 mg/dL (70-99) Sodium Level 140 mmol/L (136-145) Potassium Level 3.7 mmol/L (3.5-5.1) Chloride Level 99 mmol/L (98-107) Carbon Dioxide Level 36 mmol/L (21-32) Anion Gap 5 (6-14) Blood Urea Nitrogen 65 mg/dL (7-20) Creatinine 1.4 mg/dL (0.6-1.0) Estimated GFR (Cockcroft-Gault) 36.9 Glucose Level 180 mg/dL (70-99) Calcium Level 13.0 mg/dL (8.5-10.1) Magnesium Level 2.3 mg/dL (1.8-2.4) Test 09/14/19 19:58 09/15/19 00:37 09/15/19 05:40 09/15/19 05:41 O2 Saturation 97 % (92-99) Arterial Blood pH 7.50 (7.35-7.45) Arterial Blood pCO2 at Patient Temp 48 mmHg (35-46) Arterial Blood pO2 at Patient Temp 103 mmHg (65-108) Arterial Blood HCO3 36 mmol/L (21-28) Arterial Blood Base Excess 12 mmol/L (-3-3) FiO2 33 Glucose (Fingerstick) 147 mg/dL (70-99) 161 mg/dL (70-99) White Blood Count 43.6 x10^3/uL (4.0-11.0) Red Blood Count 2.66 x10^6/uL (3.50-5.40) Hemoglobin 7.5 g/dL (12.0-15.5) Hematocrit 23.1 % (36.0-47.0) Mean Corpuscular Volume 87 fL (79-100) Mean Corpuscular Hemoglobin 28 pg (25-35) Mean Corpuscular Hemoglobin Concent 33 g/dL (31-37) Red Cell Distribution Width 17.1 % (11.5-14.5) Platelet Count 304 x10^3/uL (140-400) Neutrophils (%) (Auto) 88 % (31-73) Lymphocytes (%) (Auto) 2 % (24-48) Monocytes (%) (Auto) 9 % (0-9) Eosinophils (%) (Auto) 1 % (0-3) Basophils (%) (Auto) 0 % (0-3) Neutrophils # (Auto) 38.4 x10^3/uL (1.8-7.7) Lymphocytes # (Auto) 0.8 x10^3/uL (1.0-4.8) Monocytes # (Auto) 4.0 x10^3/uL (0.0-1.1) Eosinophils # (Auto) 0.3 x10^3/uL (0.0-0.7) Basophils # (Auto) 0.2 x10^3/uL (0.0-0.2) Segmented Neutrophils % 80 % (35-66) Band Neutrophils % 8 % (0-9) Lymphocytes % 1 % (24-48) Monocytes % 6 % (0-10) Eosinophils % 1 % (0-5) Metamyelocytes % 3 % (0-0) Myelocytes % 1 % (0-0) Platelet Estimate Adequate (ADEQUATE) Anisocytosis Slight Sodium Level 141 mmol/L (136-145) Potassium Level 3.0 mmol/L (3.5-5.1) Chloride Level 99 mmol/L (98-107) Carbon Dioxide Level 35 mmol/L (21-32) Anion Gap 7 (6-14) Blood Urea Nitrogen 79 mg/dL (7-20) Creatinine 1.6 mg/dL (0.6-1.0) Estimated GFR (Cockcroft-Gault) 31.6 Glucose Level 164 mg/dL (70-99) Calcium Level 15.1 mg/dL (8.5-10.1) Magnesium Level 2.0 mg/dL (1.8-2.4) Procalcitonin 1.55 ng/mL (0.00-0.10) Test 09/15/19 11:30 09/15/19 13:46 Urine Collection Type U cath Urine Color Yellow Urine Clarity Clear Urine pH 7.0 (<5.0-8.0) Urine Specific [place] 1.010 (1.000-1.030) Urine Protein 30 mg/dL (NEG-TRACE) Urine Glucose (UA) Negative mg/dL (NEG) Urine Ketones (Stick) Negative mg/dL (NEG) Urine Blood Moderate (NEG) Urine Nitrite Negative (NEG) Urine Bilirubin Negative (NEG) Urine Urobilinogen Dipstick 0.2 mg/dL (0.2 mg/dL) Urine Leukocyte Esterase Negative (NEG) Urine RBC 6-10 /HPF (0-2) Urine WBC Occ /HPF (0-4) Urine Transitional Epithelial Cells Occ /LPF Urine Bacteria 0 /HPF (0-FEW) Urine Hyaline Casts Occasional /HPF Glucose (Fingerstick) 180 mg/dL (70-99) Laboratory Tests Test 09/14/19 16:00 09/14/19 18:07 09/14/19 19:50 09/14/19 19:58 Sodium Level 140 mmol/L (136-145) Potassium Level 3.7 mmol/L (3.5-5.1) Chloride Level 99 mmol/L (98-107) Carbon Dioxide Level 36 mmol/L (21-32) Anion Gap 5 (6-14) Blood Urea Nitrogen 65 mg/dL (7-20) Creatinine 1.4 mg/dL (0.6-1.0) Estimated GFR (Cockcroft-Gault) 36.9 Glucose Level 180 mg/dL (70-99) Calcium Level 13.0 mg/dL (8.5-10.1) Magnesium Level 2.3 mg/dL (1.8-2.4) Glucose (Fingerstick) 171 mg/dL (70-99) 161 mg/dL (70-99) O2 Saturation 97 % (92-99) Arterial Blood pH 7.50 (7.35-7.45) Arterial Blood pCO2 at Patient Temp 48 mmHg (35-46) Arterial Blood pO2 at Patient Temp 103 mmHg (65-108) Arterial Blood HCO3 36 mmol/L (21-28) Arterial Blood Base Excess 12 mmol/L (-3-3) FiO2 33 Test 09/15/19 00:37 09/15/19 05:40 09/15/19 05:41 09/15/19 11:30 Glucose (Fingerstick) 147 mg/dL (70-99) 161 mg/dL (70-99) White Blood Count 43.6 x10^3/uL (4.0-11.0) Red Blood Count 2.66 x10^6/uL (3.50-5.40) Hemoglobin 7.5 g/dL (12.0-15.5) Hematocrit 23.1 % (36.0-47.0) Mean Corpuscular Volume 87 fL (79-100) Mean Corpuscular Hemoglobin 28 pg (25-35) Mean Corpuscular Hemoglobin Concent 33 g/dL (31-37) Red Cell Distribution Width 17.1 % (11.5-14.5) Platelet Count 304 x10^3/uL (140-400) Neutrophils (%) (Auto) 88 % (31-73) Lymphocytes (%) (Auto) 2 % (24-48) Monocytes (%) (Auto) 9 % (0-9) Eosinophils (%) (Auto) 1 % (0-3) Basophils (%) (Auto) 0 % (0-3) Neutrophils # (Auto) 38.4 x10^3/uL (1.8-7.7) Lymphocytes # (Auto) 0.8 x10^3/uL (1.0-4.8) Monocytes # (Auto) 4.0 x10^3/uL (0.0-1.1) Eosinophils # (Auto) 0.3 x10^3/uL (0.0-0.7) Basophils # (Auto) 0.2 x10^3/uL (0.0-0.2) Segmented Neutrophils % 80 % (35-66) Band Neutrophils % 8 % (0-9) Lymphocytes % 1 % (24-48) Monocytes % 6 % (0-10) Eosinophils % 1 % (0-5) Metamyelocytes % 3 % (0-0) Myelocytes % 1 % (0-0) Platelet Estimate Adequate (ADEQUATE) Anisocytosis Slight Sodium Level 141 mmol/L (136-145) Potassium Level 3.0 mmol/L (3.5-5.1) Chloride Level 99 mmol/L (98-107) Carbon Dioxide Level 35 mmol/L (21-32) Anion Gap 7 (6-14) Blood Urea Nitrogen 79 mg/dL (7-20) Creatinine 1.6 mg/dL (0.6-1.0) Estimated GFR (Cockcroft-Gault) 31.6 Glucose Level 164 mg/dL (70-99) Calcium Level 15.1 mg/dL (8.5-10.1) Magnesium Level 2.0 mg/dL (1.8-2.4) Procalcitonin 1.55 ng/mL (0.00-0.10) Urine Collection Type U cath Urine Color Yellow Urine Clarity Clear Urine pH 7.0 (<5.0-8.0) Urine Specific [place] 1.010 (1.000-1.030) Urine Protein 30 mg/dL (NEG-TRACE) Urine Glucose (UA) Negative mg/dL (NEG) Urine Ketones (Stick) Negative mg/dL (NEG) Urine Blood Moderate (NEG) Urine Nitrite Negative (NEG) Urine Bilirubin Negative (NEG) Urine Urobilinogen Dipstick 0.2 mg/dL (0.2 mg/dL) Urine Leukocyte Esterase Negative (NEG) Urine RBC 6-10 /HPF (0-2) Urine WBC Occ /HPF (0-4) Urine Transitional Epithelial Cells Occ /LPF Urine Bacteria 0 /HPF (0-FEW) Urine Hyaline Casts Occasional /HPF Test 09/15/19 13:46 Glucose (Fingerstick) 180 mg/dL (70-99) Medications Active Scripts Medications Dose Route/Sig Max Daily Dose Days Date Category Vitamin B-12 (Cyanocobalamin (Vitamin B-12)) 1,000 Mcg Tablet 1 Tab PO DAILY 30 09/10/19 Reported Venlafaxine Hcl Er (Venlafaxine Hcl) 37.5 Mg Tab.er.24 1 Tab PO DAILY 30 09/10/19 Reported Sucralfate 1 Gm Tablet 1 Tab PO QID 09/10/19 Reported Simethicone 80 Mg Tab.chew 1 Tab PO TID 6 09/10/19 Reported Prednisone 20 Mg Tablet 12.5 Mg PO DAILY 09/10/19 Reported Metoprolol Tartrate 50 Mg Tablet 1 Tab PO BID 09/10/19 Reported Albuterol Sulfate Conc Neb Soln (Albuterol Sulfate) 2.5 Mg/0.5 Ml Vial.neb 1 Vial NEB PRN Q4HRS PRN 09/10/19 Reported Duoneb 0.5-3(2.5) Mg/3 Ml (Albuterol/Ipratropium) 3 Ml Ampul.neb 3 Ml NEB QID 09/10/19 Reported Flonase Allergy Relief (Fluticasone Propionate) 9.9 Ml [place].susp 2 Sprays NS DAILY 09/10/19 Reported Calcium (Calcium Carbonate) 500 Mg Tab.chew 1 Tab PO BID 30 09/10/19 Reported Comments cxr reviewed There is some interstitial opacity greater on the right of uncertain chronicity, could be due to interstitial infiltrate and/or edema, also some linear opacity bilaterally more likely atelectasis. Impression . 1. The patient with acute hypoxic respiratory failure secondary to pneumonia and parapneumonic effusion/early empyema, requiring mechanical ventilation and subsequent failure to wean and eventually requiring tracheostomy. Currently, her oxygenation is stable on 35% FiO2 TS 2. seizure related to acute parenchymal hemorrhage within the left parietal vertex with surrounding edema. anti sz meds increased yesterday 3. Encephalopathy secondary to parenchymal hemorrhage-- no surgical intervention 4. History of bronchiectasis. 5. Chronic obstructive pulmonary disease from secondhand tobacco exposure. 6. Recent methicillin-sensitive Staphylococcus aureus pneumonia. 7. Prior history of rib fracture from coughing. 8. Moderate protein-calorie malnutrition. 9. Leukocytosis-- improved 10. Anemia. 11. Hypokalemia. 12. Marked azotemia. 13. hypercalcemia 14. Marked leukocytosis Plan . RECOMMENDATIONS: TS Oncology rec anti sz med increased per neuro Neurosurgery recommendations. not a surgical candidate. chest x-ray.reviewed cont. IVF and monitor renal function, treatment of hyper ca per primary Withhold any anticoagulation for DVT prophylaxis due to intraparenchymal bleed in the head for at least three months , scds Anti-seizure medication per Neurology and follow their recommendation. Stress ulcer prophylaxis. replace k Discussed at length with the patient's and RN and RT. LEO WILLIAM MD Sep 15, 2019 14:05
[2019-09-15] MEDS ORDERED: IV NORMAL SALINE 1000ML BAG 1,000 ML IV SCH (16:00)
[2019-09-15] MEDS ORDERED: MORPHINE SULFATE 30 ML IV PRN (16:45)
--- NOTE | 2019-09-15 17:04 | NUR ---
Autopsy request per Dr Lashawn lucero husbands nod for go ahead. Information passed on. Devulcanizer Operator will manage after occurs
[2019-09-15] MEDS ORDERED: ACETAMINOPHEN 650 MG SUPP.RECT. PR PRN (17:15)
[2019-09-15] MEDS ORDERED: BISACODYL 10 MG SUPP.RECT. PR PRN (17:15)
[2019-09-15] MEDS ORDERED: ATROPINE 1% OPHTH SOLUTION 5ML BOTTLE. SL PRN (17:15)
--- NOTE | 2019-09-15 18:10 | NUR ---
Patient arrived to unit at approximately 1805, report received from Kelly in ICU, will continue to monitor patient.
--- NOTE | 2019-09-15 18:25 | NUR ---
1745 Transfer per bed to 438. Comfort care w Viatas after transfer.
--- NOTE | 2019-09-16 11:13 | DS ---
DATE OF DISCHARGE: 09/15/2019 HOSPITAL COURSE: The patient is a 74-year-old female patient who was transferred from [facility] where she basically noted to have partial seizures, for which she was treated with loading dose of fosphenytoin as well as total of 7 mg of Ativan. She had a CT scan of the head, which showed that she has intraparenchymal hemorrhage to brain. Therefore, the patient was transferred to [facility] to consult the neurologist and neurosurgeon. She was admitted to the ICU, continued mechanical ventilation and was seen in consultation by Dr. Rodriguez. A repeat CT scan showed subtle hyperdensity in the posterior left frontal lobe near the vertex, suspicious for acute intraparenchymal hemorrhage. No significant change from prior examinations. The radiologist recommended considering an MRI of the brain when clinically feasible for further characterization. She also has subtle subcortical white matter edema in the occipital lobe, also suspected potentially reflecting reversible posterior encephalopathy. She was continued on Keppra and was seen by Dr. Rodriguez, who basically recommended to avoid any anticoagulation for at least 2 weeks. Continue with Keppra for 1-3 months and tapered down. Unfortunately, the patient's serum calcium continued to rise dramatically, and she has repeat seizures, for which her Keppra was increased to 750 mg twice a day, and as her calcium continued to rise, and she had had an EEG, which showed that she was in status epilepticus and that an MRI showed that she has no evidence of acute or subacute ischemia. She has multifocal areas of vasogenic edema represent suspicious for underlying metastatic disease. Evaluation is limited without intravenous contrast. There is suspicion of a hemorrhagic component with associated susceptibility artifact. The most prominent of which is identified in the left parietal lobe corresponding to the area of high attenuation on recent head CT. There is no midline shift or mass effect. Differential consideration would include posterior reversible encephalopathy syndrome, although hemorrhage is atypical. Hemorrhagic component appears chronic. Dr. Rodriguez spoke with the , they repeat her EEG, which showed that the patient has bilateral periodic lateralizing epileptiform discharges and the findings were explained to the who basically given the choice between comfort care and aggressive seizure care including benzodiazepine induced coma, and he was also informed about possible multiple metastatic disease and her MRI result, and decided on comfort care, and the patient was basically discharged for inpatient hospice care. He also requested for postmortem autopsy. PHYSICAL EXAMINATION: GENERAL: On the day of discharge, the patient looked pale, somewhat cachectic, but no jaundiced, cyanosed. No lymphadenopathy, no thyromegaly. No jugular venous distention or limb edema. VITAL SIGNS: Her heart rate was 122, blood pressure was 116/55, temperature was 101, respiratory rate was 33, and oxygen saturation 100% on 8 liters oxygen by tracheal shield. HEAD, EYES, EARS, NOSE AND THROAT: Showed normocephalic, atraumatic. NECK: Supple with tracheostomy tube in place. HEART: Showed normal first and second heart sounds. No gallop or murmur. CHEST: Clear to auscultation. No crepitation or rhonchi. ABDOMEN: Distended, soft with gastrostomy tube in place. NEUROLOGIC: She was encephalopathic. Her intake was 4225, output was 4350. LABORATORY DATA: Her lab work prior to discharge showed a white cell count 43,600, hemoglobin 7.5, hematocrit 23, MCV 87 and platelet count 304,000. Her chemistry showed a serum sodium of 141, potassium 3, chloride 99, bicarbonate 35, anion gap of 7, BUN 79, creatinine 1.6. Serum calcium was 15.1 mg/dL. ASSESSMENT: 1. Bilateral periodic lateralizing epileptiform discharge. 2. Focal left-sided seizure activity that has resolved. Posterior left frontal lobe, subtle finding for intraparenchymal hemorrhage, possible posterior reversible encephalopathy, critical illness myopathy, neuropathy. MRI with possible multiple metastatic lesions with vasogenic edema. MANUELITO CEDILLO MD DR: DARRICK/south JOB#: [id number] / [id number]
[2019-09-16 13:11] LABS: ALBUM 2.7 g/dL (2.9-4.4); ALPHA 1 0.3 g/dL (0.0-0.4); ALPHA 2 0.8 g/dL (0.4-1.0); BETA 1.1 g/dL (0.7-1.3); PROTEIN TOTAL 5.9 g/dL (6.0-8.5); SPEP AG RATIO 0.8 (0.7-1.7)
[2019-09-16 15:12] LABS: KAPPA FREE 128.8 mg/L (3.3-19.4); KAPPA LAMBDA RATIO 1.27 (0.26-1.65); LAMBDA FREE 101.6 mg/L (5.7-26.3)
[2019-09-18 16:10] LABS: ALBUM 2.8 g/dL (2.9-4.4); ALPHA 1 0.3 g/dL (0.0-0.4); ALPHA 2 1.1 g/dL (0.4-1.0); BETA 0.9 g/dL (0.7-1.3); GAMMA 1.1 g/dL (0.4-1.8); PROTEIN TOTAL 6.1 g/dL (6.0-8.5); SPEP AG RATIO 0.8 (0.7-1.7)
== END 2019-09-15 18:26 | disposition hospice, inpatient (51) | DRG 64 ==
LOC: ER 12:20 → 1 WEST ICU 12:48 → 4 NORTH 09-15 18:10
PROVIDERS: ADMIT Internal Medicine; ATTEND Internal Medicine
PROC: 5A1935Z Respiratory Ventilation, Less than 24 Consecutive Hours (ICD-10-PCS; principal; 2019-09-10)
DX: I61.1 Nontraumatic intracerebral hemorrhage in hemisphere, cortical (principal); J96.01 Acute respiratory failure with hypoxia; G93.6 Cerebral edema; J86.9 Pyothorax without fistula; I67.83 Posterior reversible encephalopathy syndrome; N17.9 Acute kidney failure, unspecified; B37.49 Other urogenital candidiasis; E44.0 Moderate protein-calorie malnutrition; E87.2 Acidosis; G93.40 Encephalopathy, unspecified; J91.8 Pleural effusion in other conditions classified elsewhere; Z99.11 Dependence on respirator [ventilator] status; D64.9 Anemia, unspecified; E03.9 Hypothyroidism, unspecified; E11.9 Type 2 diabetes mellitus without complications; E78.00 Pure hypercholesterolemia, unspecified; E78.5 Hyperlipidemia, unspecified; E83.42 Hypomagnesemia; E87.6 Hypokalemia; G40.901 Epilepsy, unspecified, not intractable, with status epilepticus; J32.9 Chronic sinusitis, unspecified; K21.9 Gastro-esophageal reflux disease without esophagitis; M19.90 Unspecified osteoarthritis, unspecified site; M81.0 Age-related osteoporosis without current pathological fracture; R13.10 Dysphagia, unspecified; Z22.322 Carrier or suspected carrier of Methicillin resistant Staphylococcus aureus; Z51.5 Encounter for palliative care; Z79.52 Long term (current) use of systemic steroids; Z79.899 Other long term (current) drug therapy; Z80.0 Family history of malignant neoplasm of digestive organs; Z80.1 Family history of malignant neoplasm of trachea, bronchus and lung; Z80.51 Family history of malignant neoplasm of kidney; Z82.0 Family history of epilepsy and other diseases of the nervous system; Z82.5 Family history of asthma and other chronic lower respiratory diseases; Z83.3 Family history of diabetes mellitus; Z86.14 Personal history of Methicillin resistant Staphylococcus aureus infection; Z86.19 Personal history of other infectious and parasitic diseases; Z90.710 Acquired absence of both cervix and uterus; Z93.0 Tracheostomy status; Z93.1 Gastrostomy status; Z96.1 Presence of intraocular lens; Z96.651 Presence of right artificial knee joint; Z98.41 Cataract extraction status, right eye; Z98.42 Cataract extraction status, left eye; Z87.440 Personal history of urinary (tract) infections; Z68.23 Body mass index [BMI] 23.0-23.9, adult
CPT/HCPCS: 36415; 36600; 70450; 70551; 71045; 80048; 80053; 81001; 82306; 82805; 82962; 83520; 83735; 83970; 84100; 84145; 84165; 84484; 85007; 85025; 85027; 85610; 85730; 86850; 86900; 86901; 87040; 87070; 87205; 94002; 94003; 94640; 94760; 95816; J0360; J1630; J1815; J1953; J2060; J2270; J3010; J3475; J3480; J3490; J7030; J7060; J7512; 99285-25; G0378

== ENCOUNTER 2019-09-15 19:12 | Inpatient (IN) | payer OTHER ==
[~2019-09-15] VITALS: Ht 157.5 cm; Wt 58.5 kg
[~2019-09-15 19:12] MED LIST: ALBU2.5V14 NEB; CALC500T54 PO; CYAN-25 PO; FLUT9.9S NS; IPRA3AMP29 NEB; LEVE750T41 PO; METO50TA6 PO; PRED20TA PO; SIME80TA14 PO; SUCR1TAB PO; VENL37.510 PO
[2019-09-15] MEDS ORDERED: BISACODYL 10 MG SUPP.RECT. PR PRN (19:30)
[2019-09-15] MEDS ORDERED: ATROPINE 1% OPHTH SOLUTION 5ML BOTTLE. SL PRN (19:30)
[2019-09-15] MEDS ORDERED: ACETAMINOPHEN 650 MG SUPP.RECT. PR PRN (19:30)
[2019-09-15] MEDS ORDERED: IV NORMAL SALINE 1000ML BAG 1,000 ML IV SCH (19:30)
[2019-09-15 19:39] VITALS: BP 103/55
[2019-09-15] MEDS: MORPHINE SULFATE 30 ML IV PRN (22:23)
[2019-09-16] MEDS: MORPHINE SULFATE 30 ML IV PRN ×4 (04:50→22:08)
[2019-09-16 08:00] VITALS: BP 100/96
--- NOTE | 2019-09-16 11:48 | PN ---
DATE: 09/16/2019 SUBJECTIVE: The patient is a 74-year-old female patient who was transferred from [facility] with new onset of seizures. CT scan showed that she has left parietal intraparenchymal hemorrhage. She has had a repeat CT scan, which confirmed the finding. However, while in the ICU, she develops severe hypercalcemia, marked leukocytosis. She had an EEG, which showed that she had bilateral periodic lateralizing epileptiform discharges. An MRI of the brain showed that she has multifocal areas of vasogenic edema that are present suspicious for underlying metastatic disease. Her was given option of aggressive treatment versus comfort care and he decided to consider comfort care and therefore, the patient was admitted to inpatient hospice to continue on comfort care in the form of started on morphine, Ativan, scopolamine. PHYSICAL EXAMINATION: GENERAL: When I saw her today, she was resting comfortably in bed, in no apparent respiratory distress, pale, cachectic, but no jaundice, cyanosis, or thyromegaly. No jugular venous distension. No lower limb edema. VITAL SIGNS: Her heart rate was 127, blood pressure 100/96, temperature was 97.5, respiratory rate 20, and oxygen saturation was 94% on 4 liters of oxygen by tracheal shield. ASSESSMENT: 1. Multifocal areas of vasogenic edema that are present suspicious for underlying metastatic disease. 2. Bilateral periodic lateralizing epileptiform discharges. PLAN: Plan is to continue with comfort care in the form of morphine infusion, atropine for excessive secretion, Tylenol for fever and Ativan every 2 hours as needed. MANUELITO CEDILLO MD DR: DARRICK/south JOB#: [id number] / [id number]
[2019-09-16 19:48] VITALS: BP 79/43
[2019-09-17] MEDS: MORPHINE SULFATE 30 ML IV PRN ×4 (04:13→22:03)
[2019-09-17 08:00] VITALS: BP 83/42
--- NOTE | 2019-09-17 15:12 | NUR ---
SW following. Pt in-patient hospice with [facility]. Reviewed chart and spoke with RN. Pt BP 83/42 with respirations of 14. Pt remains on hospice. No further SW needs at this time but SW available if needed.
[2019-09-17 19:00] VITALS: BP 73/39
--- NOTE | 2019-09-17 20:37 | PN ---
DATE: 09/17/2019 SUBJECTIVE: The patient is resting, slightly propped up in bed, definitely comfortable, in no apparent distress. She continues to be on morphine drip as well as Ativan as needed every 2 hours. She is febrile this morning up to 101.3. PHYSICAL EXAMINATION: GENERAL: When I examined her, she was pale, cachectic, no jaundice, cyanosis or thyromegaly. No jugular venous distention. No lower limb edema. VITAL SIGNS: Her heart rate was 130, blood pressure was 83/42, temperature was 101.3, respiratory rate was 14 and her oxygen saturation was 92% on 4 liters of oxygen. The rest of exam is stable. ASSESSMENT: 1. Multifocal areas of vasogenic edema that are suspicious for underlying metastatic disease with intracerebral hemorrhage. 2. Bilateral periodic lateralizing epileptiform discharge. 3. Acute hypoxic respiratory failure, severe hypercalcemia. PLAN: To continue with comfort care. MANUELITO CEDILLO MD DR: DARRICK/south JOB#: [id number] / [id number]
[2019-09-18] MEDS: MORPHINE SULFATE 30 ML IV PRN (04:10)
--- NOTE | 2019-09-18 07:12 | NUR ---
Jami LLAMAS informed this RN of Vital signs for Pt. Heart Rate was listened to for one minute, Chucho RN was conferred with and auscultated Heart sounds for one minute. Time of Pt expiration was agreed on at 0715. called at 0715. Dr. Peña PCP was informed at 0720, Yumiko called along with Ludmila LOMELI, the Nursing [employer]. arrived at 0735. Dr. Rodriguez gave this RN verbal order for autopsy approval. Natalia LOMELI informed of [facility] [employer] Nursing Order. Autopsy Order placed at 0806, 0816 Security called and then [facility]. Jodie Pressley gave reference number # [id number] and informed that Pt not eligible. of Pt and I spoke for 2 hours about his concerns of not being able to spend time with his related to the [employer] policies. , son and daughter now in room with Dr. Casey RODRÍGUEZ. Record section is filled out and waiting for to complete the rest.
--- NOTE | 2019-09-18 13:03 | NUR ---
Security was notified and patient was taken down to the morgue by this RN for autopsy and lemon picker from first line.
--- NOTE | 2019-09-18 14:14 | DS ---
DATE OF DISCHARGE: DISCHARGE SUMMARY HOSPITAL COURSE: The patient is a 74-year-old female patient who was transferred originally from [facility] to [facility] with new onset of seizures. Head CT scan showed that she has left cerebral intraparenchymal hemorrhage, was admitted to the ICU, was seen by Dr. Rodriguez and initially, the plan was to hold on anticoagulant and transfer her back after she was started on Keppra; however, the patient's serum calcium has continued to rise. She had another seizure activity in the CU. Therefore, she had an EEG, which showed that she has bilateral periodic lateralizing epileptiform discharge. She also has focal left-sided seizure activity that has resolved. She has posterior left frontal lobe subtle finding for intraparenchymal hemorrhage, possible posterior reversible encephalopathy, critical illness myopathy and neuropathy, and MRI showed that the patient has multiple metastatic lesions with vasogenic edema. The family decided to consider comfort care. The patient was started on IV morphine, Ativan, Tylenol, and scopolamine and the patient basically was kept comfortably. Early this morning, the patient was found to have no spontaneous breathing, no audible heart sounds and no palpable pulsation and the patient was pronounced at around 7:15 a.m. on 09/18/2019. Dr. Rodriguez requested the autopsy. FINAL DISCHARGE DIAGNOSES: 1. Cardiopulmonary arrest. 2. Acute on chronic hypoxic respiratory failure. 3. 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 MANUELITO CEDILLO MD DR: DARRICK/south JOB#: [id number] / [id number]
== END 2019-09-18 16:49 | disposition expired | DRG 64 ==
LOC: 4 NORTH 19:12
PROVIDERS: ADMIT Internal Medicine; ATTEND Internal Medicine
DX: I61.9 Nontraumatic intracerebral hemorrhage, unspecified (principal); G93.6 Cerebral edema; J96.21 Acute and chronic respiratory failure with hypoxia; I67.83 Posterior reversible encephalopathy syndrome; C79.31 Secondary malignant neoplasm of brain; I46.9 Cardiac arrest, cause unspecified; R56.9 Unspecified convulsions; D72.829 Elevated white blood cell count, unspecified; E83.52 Hypercalcemia; Z51.5 Encounter for palliative care
CPT/HCPCS: J2270; G0378